=== PATIENT | male | born 1960 | race Caucasian/White ===

== ENCOUNTER → 2017-09-10 08:39 | Outpatient (CLI) | payer OTHER, SELFPAY ==
[2017-09-10 09:32] LABS: Add Manual Diff / Slide Review NO; Basophils Percent Auto 0.5 % (0-2); Hematocrit 44.4 % (41-53); Hemoglobin 15.4 g/dL (13.5-17.5); Lymphocytes Percent Auto 18.2 % (25-40); Mean Corpuscular HGB Conc 34.8 % (30-36); Mean Corpuscular Hemoglobin 33.1 PG (26-34); Mean Corpuscular Volume 95.1 fL (80-100); Monocytes Percent Auto 7.5 % (3-14); Neutrophils Absolute Auto 4700 /uL (3000-5900); Neutrophils Percent Auto 71.8 % (50-75); Platelet Count 90 X10^3/uL (150-400); Red Blood Cell Count 4.66 X10^6/uL (4.5-5.9); Red Cell Distribution Width 13.6 % (11.6-14.8); White Blood Cell Count 6.6 X10^3/uL (4.5-11.0)
[2017-09-10 09:55] LABS: Alanine Aminotransferase 42 IU/L (21-72); Albumin 4.3 g/dL (3.5-5.0); Albumin Globulin Ratio 1.3 (1.0-2.8); Alkaline Phosphatase 98 U/L (38-126); Aspartate Aminotransferase 28 IU/L (17-59); BUN Creatinine Ratio 24.2 (6-22); Bilirubin Total 1.1 mg/dL (0.2-1.3); Blood Urea Nitrogen 29 mg/dL (9-20); Calcium 9.6 mg/dL (8.4-10.2); Carbon Dioxide 23 mmol/L (22-32); Chloride 104 mmol/L (98-107); Estimated Glomerular Filt Rate > 60.0 mL/min (>60); Globulin 3.3 g/dL (1.7-4.1); Glucose 183 mg/dL (70-100); HEMOLYSIS 20 (0-50); Potassium 5.2 mmol/L (3.4-5.1); Sodium 140 mmol/L (137-145); Total Protein 7.6 g/dL (6.3-8.2)
[2017-09-10 09:58] LABS: Creatinine Urine Random 173.3 mg/dL
[2017-09-10 10:03] LABS: Microalbumi Creatinin Ratio Ur 32.3 ug/mg CR (<30); Microalbumin Urine Random 5.6 mg/dL (0-1.6)
[2017-09-10 10:10] LABS: Hemoglobin A1C% w Est Avg Glu 7.3 % (4.0-6.0)
== END ==
PROVIDERS: PCP Internal Medicine; Visit Provider Internal Medicine
DX: E11.9 Type 2 diabetes mellitus without complications (principal); D69.6 Thrombocytopenia, unspecified
CPT/HCPCS: 36415; 80053; 82043; 82570; 83036; 85025

== ENCOUNTER → 2017-12-16 08:21 | Outpatient (CLI) | payer OTHER, SELFPAY ==
[2017-12-16 09:40] LABS: Hemoglobin A1C% w Est Avg Glu 6.5 % (4.0-6.0)
[2017-12-16 10:05] LABS: Alanine Aminotransferase 34 IU/L (21-72); Albumin Globulin Ratio 1.3 (1.0-2.8); Alkaline Phosphatase 97 U/L (38-126); Aspartate Aminotransferase 27 IU/L (17-59); BUN Creatinine Ratio 21.5 (6-22); Bilirubin Total 0.7 mg/dL (0.2-1.3); Blood Urea Nitrogen 28 mg/dL (9-20); Calcium 9.6 mg/dL (8.4-10.2); Carbon Dioxide 26 mmol/L (22-32); Chloride 105 mmol/L (98-107); Estimated Glomerular Filt Rate 56.7 mL/min (>60); Globulin 3.1 g/dL (1.7-4.1); Glucose 175 mg/dL (70-100); HEMOLYSIS < 15 (0-50); Potassium 4.7 mmol/L (3.4-5.1); Sodium 141 mmol/L (137-145); Total Protein 7.1 g/dL (6.3-8.2)
== END ==
PROVIDERS: PCP Internal Medicine; Visit Provider Internal Medicine
DX: E11.9 Type 2 diabetes mellitus without complications (principal)
CPT/HCPCS: 36415; 80053; 83036

== ENCOUNTER 2018-07-23 08:49 | Emergency (ER) | payer OTHER, SELFPAY ==
[2018-07-23] VITALS (18 sets, daily range): BP systolic 95–164; BP diastolic 64–108; PULSE 64–115; RESP 14–26; TEMP 36.6; O2SAT 92–98; BMI 42.5
--- NOTE | 2018-07-23 09:08 | ED.ABDPAIN ---
HPI - Abdominal Pain General Chief Complaint: Abdominal Pain Stated Complaint: Throwing up, hurt esophagus Time Seen by Provider: 07/23/18 08:51 Source: patient and family Mode of arrival: ambulatory Limitations: no limitations History of Present Illness HPI narrative: 57-year-old M former smoker the is morbidly obese with history of COPD, type 2 diabetes, CHF presents with epigastrc pain, N/V off and on for the past week or two. He also complains of severe fatigue and some SOB, particularly when laying flat. He denies any fever or chills. He denies recent travel. He's never had a heart condition, nor heart cath. On arrival he is notably pale, diaphoretic, and SOB. He denies CP currently, but does have reproduceable epigastric pain. Related Data Home Medications Medication Instructions Recorded Confirmed albuterol sulfate 3 ml INHALATION TID 07/23/18 07/23/18 bupropion HCl 300 mg PO DAILY 07/23/18 07/23/18 carvedilol 25 mg PO BID 07/23/18 07/23/18 cyclobenzaprine 10 mg PO DAILY PRN 07/23/18 07/23/18 epinephrine [EpiPen 2-Lake] 0.3 ml IM PRN PRN 07/23/18 07/23/18 fluticasone propionate [Flovent 1 puff INHALATION BID 07/23/18 07/23/18 Diskus] glucosamine HCl 1 tab PO DAILY 07/23/18 07/23/18 hydrocodone-acetaminophen 1 tab PO Q6H PRN 07/23/18 07/23/18 ipratropium-albuterol [Combivent 1 inh INHALATION QID 07/23/18 07/23/18 Respimat] lisinopril 20 mg PO BID 07/23/18 07/23/18 metformin 1,000 mg PO BID 07/23/18 07/23/18 pantoprazole 40 mg PO DAILY 07/23/18 07/23/18 prednisone 20 mg PO DAILY 07/23/18 07/23/18 spironolactone 50 mg PO DAILY 07/23/18 07/23/18 terazosin 5 mg PO DAILY 07/23/18 07/23/18 Allergies Allergy/AdvReac Type Severity Reaction Status Date / Time codeine [CODEINE] Allergy Unknown Hallucinati Verified 07/23/18 13:45 ng Review of Systems Review of Systems ROS Unobtainable: All systems reviewed & are unremarkable except as noted in HPI and below Constitutional Denies chills, Reports fatigue, Denies fever(s), Denies lethargy and Reports weakness Eyes Denies change in vision, Denies eye discharge, Denies irritation and Denies loss of vision ENT Ears, Nose, Mouth, and Throat: Denies change in voice, Denies neck pain and Denies sore throat Cardiovascular Reports chest pain, Denies irregular heart rhythm, Denies lightheadedness, Denies palpitations, Reports dyspnea, Reports dyspnea on exertion and Reports orthopnea Respiratory Denies cough, Reports dyspnea, Reports dyspnea on exertion and Denies wheezing Gastrointestinal Gastrointestinal: Reports abdominal pain, Denies change in bowel habits, Denies diarrhea, Reports nausea and Reports vomiting Genitourinary Denies hematuria, Denies flank pain, Denies urinary incontinence and Denies urinary urgency Musculoskeletal Denies neck pain Integumentary/Breasts Denies pruritus, Denies erythema, Denies rash and Denies wounds Neurologic Denies confusion, Denies loss of vision and Reports weakness Psychiatric Denies anxiety, Denies confusion, Denies depression, Denies homicidal ideation and Denies suicidal ideation Endocrine Reports fatigue and Denies palpitations Hematologic/Lymphatic Denies easy bruising Allergic/Immunologic Denies wheezing PFSH Medical History Congestive heart failure (Acute) Enlarged prostate (Acute) Hypertension (Acute) Obesity (Acute) Social History Smoking Status: Former smoker Social History Smoking Status: Former smoker Exam Narrative Exam Narrative: GENERAL: 57M, morbidly obese, appears uncomfortable HEAD: Atraumatic. Normocephalic. No temporal or scalp tenderness. EYES: Pupils equal round and reactive. Extraocular motions intact. No scleral icterus. No injection or drainage. ENT: Nose without bleeding, purulent drainage or septal hematoma. Throat without erythema, tonsillar hypertrophy or exudate. Uvula midline. Airway patent. NECK: Trachea midline. No JVD or lymphadenopathy. Supple, nontender, no meningeal signs. CARDIOVASCULAR: Regular rate and rhythm without murmurs, gallops, or rubs. RESPIRATORY: Clear to auscultation. Breath sounds equal bilaterally. No wheezes, rales, or rhonchi. GASTROINTESTINAL: Abdomen soft, mild reproduceable epigastric pain nondistended. No hepato-splenomegaly, or palpable masses. No guarding. EXTREMITIES: No clubbing, cyanosis, or edema. No joint tenderness, effusion, or edema noted. BACK: Nontender without deformity or crepitance. No flank tenderness. NEURO: AOx3. SKIN: No rash or erythema. Initial Vital Signs Initial Vital Signs: Vital Signs Temperature 97.8 F 07/23/18 09:07 Pulse Rate 82 07/23/18 09:07 Respiratory Rate 20 07/23/18 09:07 Blood Pressure 164/108 H 07/23/18 09:07 Pulse Oximetry 93 07/23/18 09:07 Scores HEART Score Heart Score history: Highly Suspicious Heart Score EKG: Non-Specific repolarization disturbance Heart Score Age: 45-64 years old Heart Score risk factors: > 3 risk factors or hx of atherosclerotic disease Heart Score troponin: > 3 times normal limit Heart Score Total: 8 Course Orders Ordered: ED Orders 07/23/18 09:19 XR chest 1V Stat EKG-12 Lead Stat 07/23/18 09:26 B Type Natriuretic Peptide Stat Complete Blood Count AUTO DIFF Stat Comprehensive Metabolic Panel Stat Lipase Stat Partial Thromboplastin Time Stat Prothrombin Time INR Stat Troponin & CK Cardiac Panel Stat 07/23/18 09:44 US abdomen complete Stat 07/23/18 10:41 CT angio chest PE protocol Stat 07/23/18 11:26 CPAP RT PROTOCOL 07/23/18 12:15 Troponin I Stat 07/23/18 13:28 EKG-12 Lead Stat Discontinued Medications Acetaminophen (Tylenol) 975 mg PO NOW ONE Stop: 07/23/18 13:27 Last Admin: 07/23/18 13:31 Dose: 975 mg Aspirin (Aspirin) 325 mg PO NOW ONE Stop: 07/23/18 14:32 Last Admin: 07/23/18 14:06 Dose: 325 mg Al Hydrox/Mg Hydrox/Simethicone 20 ml/ Lidocaine HCl 15 ml 0 ml PO NOW ONE Stop: 07/23/18 09:44 Last Admin: 07/23/18 10:08 Dose: 30 ml Furosemide (Lasix) 40 mg IV NOW ONE Stop: 07/23/18 10:34 Last Admin: 07/23/18 11:03 Dose: 40 mg Heparin Sodium (Porcine) (Heparin) 12,300 unit 80 unit/kg (71484 unit) IV NOW ONE Stop: 07/23/18 10:26 Last Admin: 07/23/18 10:41 Dose: 12,300 unit Pantoprazole Sodium 80 mg/ (Sodium Chloride) 100 mls @ 10 mls/hr IV NOW ONE Stop: 07/23/18 19:42 Last Infusion: 07/23/18 10:33 Dose: 0 mls/hr Admin: 07/23/18 10:09 Dose: 10 mls/hr Heparin Sodium/Dextrose (Heparin Drip) 25,000 unit in 500 mls @ 37.013 mls/hr IV CONT SARAH; Protocol Last Titration: 07/23/18 14:26 Dose: 12 units/kg/hr, 37.013 mls/hr Admin: 07/23/18 11:15 Dose: 12 units/kg/hr, 37.013 mls/hr Nitroglycerin (Nitrostat) 0.4 mg SL NOW ONE Stop: 07/23/18 13:25 Last Admin: 07/23/18 13:25 Dose: 0.4 mg Nitroglycerin (Nitrostat) 0.4 mg SL [id number] PRN PRN Reason: Chest Pain Last Admin: 07/23/18 13:36 Dose: 0.4 mg Admin: 07/23/18 13:31 Dose: 0.4 mg Ondansetron HCl (Zofran) 4 mg IV NOW ONE Stop: 07/23/18 09:20 Last Admin: 07/23/18 09:33 Dose: 4 mg Reevaluation(s) Reevaluation #1: patient no longer having pain. SOB. asks for CPAP to use for CTA. Heparin bolus/drip ordered Reevaluation #2: patient resting comfortably. No pain Consultations Consultation #1: call to [facility]. No beds call to [facility]. No beds 1228 - call to [facility]. Dr. Pavon (hospitalist paged). Tentatively accepts, requests EKGs, labs, chart be faxed. 1320 - call Savanah back, to relay increase in troponin up to 13.9. He requests I call cardio 1324 - patient calls me to bedside, developing pain. 3/10. Retrosternal. Not made worse with palpation. NG ordered. Repeat EKG. 1325 - pain down to 1/10 with NG. Developing headache. Tylenol ordered. Cardio calls back, requests rapid transport to ED. ED provider at [facility] called (Dr. Bolanos) to accept 1345 - call to [facility], patient exceeds dimensions (weight and girth) cannot fly rotary. Call to [facility]. 2 hour ETA. Catalina LAZO called. Verbal instructions for heparin, NG, MS. 1355 - call back to [facility] just to confirm, no ability to accept heart cath patient 1405 - patient loaded up. Currently pain free. Heparin bolus given, heparin drip running, ASA 324mg PO given. No Metoporolol given signs of CHF. Vital Signs - 8 hr 07/23/18 09:07 07/23/18 09:30 07/23/18 10:00 Temperature 97.8 F Pulse Rate 82 64 72 Respiratory Rate 20 14 18 Blood Pressure 164/108 H Blood Pressure [Left Arm] 145/73 H 117/87 Pulse Oximetry 93 93 92 07/23/18 10:30 07/23/18 10:36 07/23/18 10:43 Temperature Pulse Rate 66 80 Respiratory Rate 22 16 Blood Pressure Blood Pressure [Left Arm] 95/64 109/88 109/88 Pulse Oximetry 07/23/18 11:15 07/23/18 11:30 07/23/18 11:45 Temperature Pulse Rate 89 90 98 H Respiratory Rate 22 20 21 Blood Pressure Blood Pressure [Left Arm] 141/92 H 149/91 H 154/99 H Pulse Oximetry 97 98 96 07/23/18 12:00 07/23/18 12:30 07/23/18 12:50 Temperature Pulse Rate 85 89 99 H Respiratory Rate 19 19 24 Blood Pressure Blood Pressure [Left Arm] 161/95 H 164/101 H 164/98 H Pulse Oximetry 98 97 97 07/23/18 13:03 07/23/18 13:25 07/23/18 13:30 Temperature Pulse Rate 92 H 110 H 106 H Respiratory Rate 20 22 Blood Pressure 155/95 H Blood Pressure [Left Arm] 160/95 H 131/88 Pulse Oximetry 96 93 07/23/18 13:31 07/23/18 13:36 07/23/18 14:00 Temperature Pulse Rate 101 H 115 H Respiratory Rate 26 H Blood Pressure 131/88 143/97 H Blood Pressure [Left Arm] 144/91 H Pulse Oximetry 95 MDM - Abdominal Pain Medical Records Attestation: I reviewed the patient's medical records. Lab Data Attestation: I reviewed the patient's lab results. Result diagrams: 07/23/18 09:26 07/23/18 09:26 Lab Results 07/23/18 07/23/18 07/23/18 Range/Units 09:26 09:26 09:26 WBC 6.9 (4.5-11.0) X10^3/uL RBC 4.73 (4.5-5.9) X10^6/uL Hgb 15.5 (13.5-17.5) g/dL Hct 43.9 (41-53) % MCV 92.7 (80-100) fL MCH 32.7 (26-34) PG MCHC 35.3 (30-36) % RDW 13.5 (11.6-14.8) % Plt Count 138 L (150-400) X10^3/uL Neut % (Auto) 77.9 H (50-75) % Lymph % (Auto) 15.9 L (25-40) % Mingo % (Auto) 5.6 (3-14) % Eos % (Auto) 0.1 L (2-4) % Baso % (Auto) 0.5 (0-2) % Neut # (Auto) 5400 (1798-6018) /uL Lymph # (Auto) 1100 (3628-4697) /uL Mingo # (Auto) 400 (0-900) /uL Eos # (Auto) 0 (0-450) /uL Baso # (Auto) 0 (0-100) /uL PT 12.3 (10.1-12.7) SECONDS INR 1.1 (0.9-1.3) APTT 29 (26.4-36.2) SECONDS Sodium 136 L (137-145) mmol/L Potassium 4.5 (3.4-5.1) mmol/L Chloride 101 (98-107) mmol/L Carbon Dioxide 23 (22-32) mmol/L BUN 21 H (9-20) mg/dL Creatinine 1.40 H (0.66-1.25) mg/dL Estimated GFR 52.1 L (>60) mL/min BUN/Creatinine Ratio 15.0 (6-22) Glucose 192 H (70-100) mg/dL Calcium 10.0 (8.4-10.2) mg/dL Total Bilirubin 0.7 (0.2-1.3) mg/dL AST 87 H (17-59) IU/L ALT 45 (21-72) IU/L Alkaline Phosphatase 87 (38-126) U/L Total Creatine Kinase 795 H (55-170) U/L CK-MB (CK-2) 55.30 H (<2.37) ng/mL CK-MB (CK-2) Rel Index 7.0 H* (1.5-5.0) % Troponin I 8.610 H* (0.01-0.034) ng/mL B-Natriuretic Peptide (<100) Total Protein 7.4 (6.3-8.2) g/dL Albumin 4.3 (3.5-5.0) g/dL Globulin 3.1 (1.7-4.1) g/dL Albumin/Globulin Ratio 1.4 (1.0-2.8) Lipase 96 (23-300) U/L 07/23/18 07/23/18 Range/Units 09:26 12:15 WBC (4.5-11.0) X10^3/uL RBC (4.5-5.9) X10^6/uL Hgb (13.5-17.5) g/dL Hct (41-53) % MCV (80-100) fL MCH (26-34) PG MCHC (30-36) % RDW (11.6-14.8) % Plt Count (150-400) X10^3/uL Neut % (Auto) (50-75) % Lymph % (Auto) (25-40) % Mingo % (Auto) (3-14) % Eos % (Auto) (2-4) % Baso % (Auto) (0-2) % Neut # (Auto) (0462-0189) /uL Lymph # (Auto) (4584-7770) /uL Mingo # (Auto) (0-900) /uL Eos # (Auto) (0-450) /uL Baso # (Auto) (0-100) /uL PT (10.1-12.7) SECONDS INR (0.9-1.3) APTT (26.4-36.2) SECONDS Sodium (137-145) mmol/L Potassium (3.4-5.1) mmol/L Chloride (98-107) mmol/L Carbon Dioxide (22-32) mmol/L BUN (9-20) mg/dL Creatinine (0.66-1.25) mg/dL Estimated GFR (>60) mL/min BUN/Creatinine Ratio (6-22) Glucose (70-100) mg/dL Calcium (8.4-10.2) mg/dL Total Bilirubin (0.2-1.3) mg/dL AST (17-59) IU/L ALT (21-72) IU/L Alkaline Phosphatase (38-126) U/L Total Creatine Kinase (55-170) U/L CK-MB (CK-2) (<2.37) ng/mL CK-MB (CK-2) Rel Index (1.5-5.0) % Troponin I 13.900 H* (0.01-0.034) ng/mL B-Natriuretic Peptide < 100 (<100) Total Protein (6.3-8.2) g/dL Albumin (3.5-5.0) g/dL Globulin (1.7-4.1) g/dL Albumin/Globulin Ratio (1.0-2.8) Lipase (23-300) U/L Imaging Data CT scan - chest: Radiologist's impression: [place] [address] CT Scan Report Signed Patient: Sameer Joe [facility]#: [id number] : 1960Acct:[id number] Age/Sex: 57 / MDate of Service: 07/23/18 Loc: ED Accession Number: [id number] Procedure: CT angio chest PE protocol Ordering Provider: Harpal Nam D.O. PROCEDURE: CT ANGIO CHEST PE PROTOCOL INDICATIONS: chest pain, shortness of breath, positive Trop/BNP TECHNIQUE: After the administration of intravenous contrast, 2 mm thick sections acquired from the pulmonary apices to the posterior costophrenic angles. 3-dimensional maximum intensity projection (MIP) coronal and sagittal reformats were then acquired through the thorax. For radiation dose reduction, the following was used: automated exposure control, adjustment of mA and/or kV according to patient size. COMPARISON: [facility], CR, XR CHEST 1V, 07/23/2018, 9:25. FINDINGS: Image quality: Excellent. Pulmonary arteries: Pulmonary arteries are normal in size, and demonstrate no intraluminal filling defects to suggest central pulmonary embolism. Lungs and pleura: Consolidation is present at the posterior right lung base. Mild atelectasis is present at the left lung base. A questionable 1.0 cm pulmonary mass versus atelectasis is present within the superior segment of the left lower lobe (series 5, image 20). No pleural effusions or pneumothorax. Central and peripheral airways are patent. Mediastinum: Heart size is enlarged, without pericardial effusion. No mediastinal or hilar adenopathy. Thoracic aorta is normal in caliber and enhancement. Scattered atheromatous calcifications are present within the aortic arch. Esophagus is normal in caliber, without hiatal hernia. Bones and chest wall: No suspicious bony lesions. Moderate degenerative changes are present throughout the thoracic spine. Ribs and thoracic spine appear intact throughout. Thyroid gland is unremarkable. No axillary or supraclavicular adenopathy. Abdomen: Visualized upper abdominal solid organs appear normal in the early arterial phase of enhancement. IMPRESSION: 1. No acute pulmonary embolus. 2. Right basilar consolidation suspicious for pneumonia. However, underlying pulmonary neoplasm cannot be excluded and short interval followup is recommended. 3. Mild cardiomegaly. Dictated by: Lorraine Thomas M.D. on 07/23/2018 at 11:10 Approved by: Lorraine Thomas M.D. on 07/23/2018 at 11:27 US - abdomen: Radiologist's impression: [address] [address] Ultrasound Report Signed Patient: Sameer Joe [facility]#: [id number] : 1960Acct:[id number] Age/Sex: 57 / MDate of Service: 07/23/18 Loc: ED Accession Number: [id number] Procedure: US abdomen complete Ordering Provider: Harpal Nam D.O. PROCEDURE: US ABDOMEN COMPLETE INDICATIONS: N/V, severe epigastric pain TECHNIQUE: Real-time scanning was performed of the abdominal and retroperitoneal organs, with image documentation. COMPARISON: [facility], , ABDOMEN COMPLETE, 07/15/2016, 8:26. [facility], [place], ABDOMEN COMPLETE, 12/12/2010, 9:56. FINDINGS: Liver: Liver is enlarged at 20.6 cm craniocaudad in size and homogeneous in echotexture, diffusely hyperechoic. Gallbladder: The gallbladder appears normal Biliary ducts: Intrahepatic bile ducts are non-dilated. Extrahepatic bile duct caliber measures 7-8 mm, slightly prominent. Normal is 6-7 mm or less in diameter, or 10 mm or less post-cholecystectomy. Pancreas: Visualized portions of the pancreas are sonographically normal. Spleen: Spleen is globally enlarged in size at 16.6 cm craniocaudad, and homogeneous in echotexture. Kidneys: Kidneys are normal in size and echotexture. Right kidney measures 12.2 cm long; left kidney measures 12.9 cm long. No hydronephrosis or nephrolithiasis. No solid masses. Aorta: Visualized aorta is normal in caliber at less than 3 cm. in the distal third of the aortic was obscured by bowel gas. Iliacs: Obscured by bowel gas. IVC: Intrahepatic inferior vena cava is patent. Miscellaneous: No free abdominal fluid. IMPRESSION: Hepatosplenomegaly with a mildly hyperechoic liver echotexture consistent with fatty infiltration. Varices or ascites is not seen. Please correlate for presence of hepatitis, in this clinical circumstance. Mild prominence of the extrahepatic common duct at 7-8 mm for a patient with gallbladder intact. No gallstones found. If unusual symptoms persist followup by MR cholangiogram for common duct calculus may become necessary. Significant portions of the lower abdomen/pelvis were poorly seen due to bowel gas obscuring visualization of the distal third of the aorta and the iliac arteries bilaterally. Dictated by: Ricardo Fuentes M.D. on 07/23/2018 at 10:25 Approved by: Ricardo Fuentes M.D. on 07/23/2018 at 10:28 Chest x-ray: Radiologist's impression: Procedure: XR chest 1V Ordering Provider: Harpal Nam D.O. PROCEDURE: XR CHEST 1V INDICATIONS: chest pain TECHNIQUE: One view of the chest was acquired. COMPARISON: [facility], , CHEST 2 VIEW, 03/12/2015, 10:18. FINDINGS: Surgical changes and devices: None. Lungs and pleura: Lungs are mildly edematous. No pleural effusions or pneumothorax. Mediastinum: Mediastinal contours appear normal. Heart size is mildly enlarged. Bones and chest wall: No suspicious bony lesions. Overlying soft tissues appear unremarkable. IMPRESSION: Mild pulmonary edema with mild cardiomegaly, probable acute exacerbation of chronic CHF. Dictated by: Ricardo Fuentes M.D. on 07/23/2018 at 9:39 Approved by: Ricardo Fuentes M.D. on 07/23/2018 at 9:39 MDM Narrative Medical decision making narrative: 57M with DM, HTN, obesity presents with N/V, epigastric pain, SOB. EKG shows RBBB which appears new since 2016. Epigastric pain worse on palpation, unremarkable belly labs, US shows no acute finding. Troponin critically elevated. CTA demonstrates no PE. Heparin ordered. Transfer needed to further evaluate symptoms and troponin, which strongly suggest cardiac etioliogy. Critical Care Time Critical Care Time: Yes Total Critical Care Time: 30 Attestation: The high probability of a clinically significant, sudden or life threatening deterioration of the [cardiovascular] system(s) required my full and direct attention, intervention and personal management. The aggregate critical care time was [30] minutes. This time is in addition to time spent performing reported procedures but includes the following: [x] Data Review and interpretation [x] Patient assessment and monitoring of vital signs [x] Documentation [x] Medication orders and management Discharge Plan Departure Patient Disposition: [facility] Clinical Impression: ACS (acute coronary syndrome) Discharge Date/Time: 07/23/18 14:06 Interventions: ED Discharge Assessment Last Done: 07/23/18 14:06 Prescriptions: No Action terazosin 5 mg capsule 5 mg PO DAILY RF: 0 carvedilol 25 mg tablet 25 mg PO BID RF: 0 spironolactone 25 mg tablet 50 mg PO DAILY RF: 0 pantoprazole 40 mg tablet,delayed release (DR/EC) 40 mg PO DAILY RF: 0 Combivent Respimat 20-100 mcg/actuation mist 1 inh Inhalation QID RF: 0 albuterol sulfate 2.5 mg /3 mL (0.083 %) solution for nebulization 3 ml Inhalation TID RF: 0 lisinopril 20 mg tablet 20 mg PO BID RF: 0 hydrocodone-acetaminophen 10-325 mg tablet 1 tab PO Q6H PRN (Reason: PAIN) RF: 0 metformin 1,000 mg tablet 1,000 mg PO BID RF: 0 Flovent Diskus 100 mcg/actuation blister with device 1 puff Inhalation BID RF: 0 bupropion HCl 300 mg tablet extended release 24 hr 300 mg PO DAILY RF: 0 glucosamine HCl 1,500 mg Tablet 1 tab PO DAILY RF: 0 cyclobenzaprine 10 mg Tablet 10 mg PO DAILY PRN (Reason: Muscle Spasm) RF: 0 prednisone 10 mg tablet 20 mg PO DAILY RF: 0 epinephrine [EpiPen 2-Lake] 0.3 mg/0.3 mL Auto-Injector 0.3 ml IM PRN PRN (Reason: Allergic Reaction) RF: 0 Referrals: Dayne Osorio MD [Primary Care Provider] -
--- NOTE | 2018-07-23 09:19 | DI.RAD.S_ITS ---
PROCEDURE: XR CHEST 1V INDICATIONS: chest pain TECHNIQUE: One view of the chest was acquired. COMPARISON: [facility], , CHEST 2 VIEW, 03/12/2015, 10:18. FINDINGS: Surgical changes and devices: None. Lungs and pleura: Lungs are mildly edematous. No pleural effusions or pneumothorax. Mediastinum: Mediastinal contours appear normal. Heart size is mildly enlarged. Bones and chest wall: No suspicious bony lesions. Overlying soft tissues appear unremarkable. IMPRESSION: Mild pulmonary edema with mild cardiomegaly, probable acute exacerbation of chronic CHF. Dictated by: Ricardo Fuentes M.D. on 07/23/2018 at 9:39 Approved by: Ricardo Fuentes M.D. on 07/23/2018 at 9:39
[2018-07-23] MEDS: ONDANSETRON 4 MG/2 ML INJ IV (09:33)
[2018-07-23 09:34] LABS: Add Manual Diff / Slide Review NO; Basophils Absolute Auto 0 /uL (0-100); Basophils Percent Auto 0.5 % (0-2); Eosinophils Absolute Auto 0 /uL (0-450); Eosinophils Percent Auto 0.1 % (2-4); Hematocrit 43.9 % (41-53); Hemoglobin 15.5 g/dL (13.5-17.5); Lymphocytes Absolute Auto 1100 /uL (1100-4500); Lymphocytes Percent Auto 15.9 % (25-40); Mean Corpuscular HGB Conc 35.3 % (30-36); Mean Corpuscular Hemoglobin 32.7 PG (26-34); Mean Corpuscular Volume 92.7 fL (80-100); Monocytes Absolute Auto 400 /uL (0-900); Monocytes Percent Auto 5.6 % (3-14); Neutrophils Absolute Auto 5400 /uL (1500-7000); Neutrophils Percent Auto 77.9 % (50-75); Platelet Count 138 X10^3/uL (150-400); Red Blood Cell Count 4.73 X10^6/uL (4.5-5.9); Red Cell Distribution Width 13.5 % (11.6-14.8); White Blood Cell Count 6.9 X10^3/uL (4.5-11.0)
[2018-07-23 09:38] LABS: INR 1.1 (0.9-1.3); Prothrombin Time 12.3 SECONDS (10.1-12.7)
[2018-07-23 09:41] LABS: PTT Partial Thromboplastin Tim 29 SECONDS (26.4-36.2)
[2018-07-23 09:44] LABS: Alanine Aminotransferase 45 IU/L (21-72); Albumin 4.3 g/dL (3.5-5.0); Albumin Globulin Ratio 1.4 (1.0-2.8); Alkaline Phosphatase 87 U/L (38-126); Aspartate Aminotransferase 87 IU/L (17-59); Bilirubin Total 0.7 mg/dL (0.2-1.3); Blood Urea Nitrogen 21 mg/dL (9-20); Carbon Dioxide 23 mmol/L (22-32); Chloride 101 mmol/L (98-107); Creatine Kinase 795 U/L (55-170); Estimated Glomerular Filt Rate 52.1 mL/min (>60); Globulin 3.1 g/dL (1.7-4.1); Glucose 192 mg/dL (70-100); HEMOLYSIS < 15 (0-50); Lipase 96 U/L (23-300); Potassium 4.5 mmol/L (3.4-5.1); Sodium 136 mmol/L (137-145); Total Protein 7.4 g/dL (6.3-8.2)
--- NOTE | 2018-07-23 09:44 | DI.US.S_ITS ---
PROCEDURE: US ABDOMEN COMPLETE INDICATIONS: N/V, severe epigastric pain TECHNIQUE: Real-time scanning was performed of the abdominal and retroperitoneal organs, with image documentation. COMPARISON: [facility], [place], ABDOMEN COMPLETE, 07/15/2016, 8:26. [facility], [place], ABDOMEN COMPLETE, 12/12/2010, 9:56. FINDINGS: Liver: Liver is enlarged at 20.6 cm craniocaudad in size and homogeneous in echotexture, diffusely hyperechoic. Gallbladder: The gallbladder appears normal Biliary ducts: Intrahepatic bile ducts are non-dilated. Extrahepatic bile duct caliber measures 7-8 mm, slightly prominent. Normal is 6-7 mm or less in diameter, or 10 mm or less post-cholecystectomy. Pancreas: Visualized portions of the pancreas are sonographically normal. Spleen: Spleen is globally enlarged in size at 16.6 cm craniocaudad, and homogeneous in echotexture. Kidneys: Kidneys are normal in size and echotexture. Right kidney measures 12.2 cm long; left kidney measures 12.9 cm long. No hydronephrosis or nephrolithiasis. No solid masses. Aorta: Visualized aorta is normal in caliber at less than 3 cm. in the distal third of the aortic was obscured by bowel gas. Iliacs: Obscured by bowel gas. IVC: Intrahepatic inferior vena cava is patent. Miscellaneous: No free abdominal fluid. IMPRESSION: Hepatosplenomegaly with a mildly hyperechoic liver echotexture consistent with fatty infiltration. Varices or ascites is not seen. Please correlate for presence of hepatitis, in this clinical circumstance. Mild prominence of the extrahepatic common duct at 7-8 mm for a patient with gallbladder intact. No gallstones found. If unusual symptoms persist followup by MR cholangiogram for common duct calculus may become necessary. Significant portions of the lower abdomen/pelvis were poorly seen due to bowel gas obscuring visualization of the distal third of the aorta and the iliac arteries bilaterally. Dictated by: Ricardo Fuentes M.D. on 07/23/2018 at 10:25 Approved by: Ricardo Fuentes M.D. on 07/23/2018 at 10:28
[2018-07-23] MEDS: MAG HYDROX/ALUMINUM/SIMETH SUS 20 ML, LIDOCAINE VISCOUS 2% 15 ML PO (10:08)
[2018-07-23] MEDS: PANTOPRAZOLE 80 MG in SODIUM CHLORIDE 0.9% 100 ML 10 ML IV (10:09)
--- NOTE | 2018-07-23 10:09 | ED_ITS ---
HPI - Abdominal Pain General Chief Complaint: Abdominal Pain Stated Complaint: Throwing up, hurt esophagus Time Seen by Provider: 07/23/18 08:51 Source: patient and family Mode of arrival: ambulatory Limitations: no limitations History of Present Illness HPI narrative: 57-year-old M former smoker the is morbidly obese with history of COPD, type 2 diabetes, CHF presents with epigastrc pain, N/V off and on for the past week or two. He also complains of severe fatigue and some SOB, particularly when laying flat. He denies any fever or chills. He denies recent travel. He's never had a heart condition, nor heart cath. On arrival he is notably pale, diaphoretic, and SOB. He denies CP currently, but does have reproduceable epigastric pain. Related Data Home Medications Medication Instructions Recorded Confirmed albuterol sulfate 3 ml INHALATION TID 07/23/18 07/23/18 bupropion HCl 300 mg PO DAILY 07/23/18 07/23/18 carvedilol 25 mg PO BID 07/23/18 07/23/18 cyclobenzaprine 10 mg PO DAILY PRN 07/23/18 07/23/18 epinephrine [EpiPen 2-Lake] 0.3 ml IM PRN PRN 07/23/18 07/23/18 fluticasone propionate [Flovent 1 puff INHALATION BID 07/23/18 07/23/18 Diskus] glucosamine HCl 1 tab PO DAILY 07/23/18 07/23/18 hydrocodone-acetaminophen 1 tab PO Q6H PRN 07/23/18 07/23/18 ipratropium-albuterol [Combivent 1 inh INHALATION QID 07/23/18 07/23/18 Respimat] lisinopril 20 mg PO BID 07/23/18 07/23/18 metformin 1,000 mg PO BID 07/23/18 07/23/18 pantoprazole 40 mg PO DAILY 07/23/18 07/23/18 prednisone 20 mg PO DAILY 07/23/18 07/23/18 spironolactone 50 mg PO DAILY 07/23/18 07/23/18 terazosin 5 mg PO DAILY 07/23/18 07/23/18 Allergies Allergy/AdvReac Type Severity Reaction Status Date / Time codeine [CODEINE] Allergy Unknown Hallucinati Verified 07/23/18 13:45 ng Review of Systems Review of Systems ROS Unobtainable: All systems reviewed & are unremarkable except as noted in HPI and below Constitutional Denies chills, Reports fatigue, Denies fever(s), Denies lethargy and Reports weakness Eyes Denies change in vision, Denies eye discharge, Denies irritation and Denies loss of vision ENT Ears, Nose, Mouth, and Throat: Denies change in voice, Denies neck pain and Denies sore throat Cardiovascular Reports chest pain, Denies irregular heart rhythm, Denies lightheadedness, Denies palpitations, Reports dyspnea, Reports dyspnea on exertion and Reports orthopnea Respiratory Denies cough, Reports dyspnea, Reports dyspnea on exertion and Denies wheezing Gastrointestinal Gastrointestinal: Reports abdominal pain, Denies change in bowel habits, Denies diarrhea, Reports nausea and Reports vomiting Genitourinary Denies hematuria, Denies flank pain, Denies urinary incontinence and Denies urinary urgency Musculoskeletal Denies neck pain Integumentary/Breasts Denies pruritus, Denies erythema, Denies rash and Denies wounds Neurologic Denies confusion, Denies loss of vision and Reports weakness Psychiatric Denies anxiety, Denies confusion, Denies depression, Denies homicidal ideation and Denies suicidal ideation Endocrine Reports fatigue and Denies palpitations Hematologic/Lymphatic Denies easy bruising Allergic/Immunologic Denies wheezing PFSH Medical History Congestive heart failure (Acute) Enlarged prostate (Acute) Hypertension (Acute) Obesity (Acute) Social History Smoking Status: Former smoker Social History Smoking Status: Former smoker Exam Narrative Exam Narrative: GENERAL: 57M, morbidly obese, appears uncomfortable HEAD: Atraumatic. Normocephalic. No temporal or scalp tenderness. EYES: Pupils equal round and reactive. Extraocular motions intact. No scleral icterus. No injection or drainage. ENT: Nose without bleeding, purulent drainage or septal hematoma. Throat without erythema, tonsillar hypertrophy or exudate. Uvula midline. Airway patent. NECK: Trachea midline. No JVD or lymphadenopathy. Supple, nontender, no meningeal signs. CARDIOVASCULAR: Regular rate and rhythm without murmurs, gallops, or rubs. RESPIRATORY: Clear to auscultation. Breath sounds equal bilaterally. No wheezes, rales, or rhonchi. GASTROINTESTINAL: Abdomen soft, mild reproduceable epigastric pain nondistended. No hepato-splenomegaly, or palpable masses. No guarding. EXTREMITIES: No clubbing, cyanosis, or edema. No joint tenderness, effusion, or edema noted. BACK: Nontender without deformity or crepitance. No flank tenderness. NEURO: AOx3. SKIN: No rash or erythema. Initial Vital Signs Initial Vital Signs: Vital Signs Temperature 97.8 F 07/23/18 09:07 Pulse Rate 82 07/23/18 09:07 Respiratory Rate 20 07/23/18 09:07 Blood Pressure 164/108 H 07/23/18 09:07 Pulse Oximetry 93 07/23/18 09:07 Scores HEART Score Heart Score history: Highly Suspicious Heart Score EKG: Non-Specific repolarization disturbance Heart Score Age: 45-64 years old Heart Score risk factors: > 3 risk factors or hx of atherosclerotic disease Heart Score troponin: > 3 times normal limit Heart Score Total: 8 Course Orders Ordered: ED Orders 07/23/18 09:19 XR chest 1V Stat EKG-12 Lead Stat 07/23/18 09:26 B Type Natriuretic Peptide Stat Complete Blood Count AUTO DIFF Stat Comprehensive Metabolic Panel Stat Lipase Stat Partial Thromboplastin Time Stat Prothrombin Time INR Stat Troponin & CK Cardiac Panel Stat 07/23/18 09:44 US abdomen complete Stat 07/23/18 10:41 CT angio chest PE protocol Stat 07/23/18 11:26 CPAP RT PROTOCOL 07/23/18 12:15 Troponin I Stat 07/23/18 13:28 EKG-12 Lead Stat Discontinued Medications Acetaminophen (Tylenol) 975 mg PO NOW ONE Stop: 07/23/18 13:27 Last Admin: 07/23/18 13:31 Dose: 975 mg Aspirin (Aspirin) 325 mg PO NOW ONE Stop: 07/23/18 14:32 Last Admin: 07/23/18 14:06 Dose: 325 mg Al Hydrox/Mg Hydrox/Simethicone 20 ml/ Lidocaine HCl 15 ml 0 ml PO NOW ONE Stop: 07/23/18 09:44 Last Admin: 07/23/18 10:08 Dose: 30 ml Furosemide (Lasix) 40 mg IV NOW ONE Stop: 07/23/18 10:34 Last Admin: 07/23/18 11:03 Dose: 40 mg Heparin Sodium (Porcine) (Heparin) 12,300 unit 80 unit/kg (25934 unit) IV NOW ONE Stop: 07/23/18 10:26 Last Admin: 07/23/18 10:41 Dose: 12,300 unit Pantoprazole Sodium 80 mg/ (Sodium Chloride) 100 mls @ 10 mls/hr IV NOW ONE Stop: 07/23/18 19:42 Last Infusion: 07/23/18 10:33 Dose: 0 mls/hr Admin: 07/23/18 10:09 Dose: 10 mls/hr Heparin Sodium/Dextrose (Heparin Drip) 25,000 unit in 500 mls @ 37.013 mls/hr IV CONT SARAH; Protocol Last Titration: 07/23/18 14:26 Dose: 12 units/kg/hr, 37.013 mls/hr Admin: 07/23/18 11:15 Dose: 12 units/kg/hr, 37.013 mls/hr Nitroglycerin (Nitrostat) 0.4 mg SL NOW ONE Stop: 07/23/18 13:25 Last Admin: 07/23/18 13:25 Dose: 0.4 mg Nitroglycerin (Nitrostat) 0.4 mg SL [id number] PRN PRN Reason: Chest Pain Last Admin: 07/23/18 13:36 Dose: 0.4 mg Admin: 07/23/18 13:31 Dose: 0.4 mg Ondansetron HCl (Zofran) 4 mg IV NOW ONE Stop: 07/23/18 09:20 Last Admin: 07/23/18 09:33 Dose: 4 mg Reevaluation(s) Reevaluation #1: patient no longer having pain. SOB. asks for CPAP to use for CTA. Heparin bolus/drip ordered Reevaluation #2: patient resting comfortably. No pain Consultations Consultation #1: call to [facility]. No beds call to [facility]. No beds 1228 - call to [facility]. Dr. Pavon (hospitalist paged). Tentatively accepts, requests EKGs, labs, chart be faxed. 1320 - call Savanah back, to relay increase in troponin up to 13.9. He requests I call cardio 1324 - patient calls me to bedside, developing pain. 3/10. Retrosternal. Not made worse with palpation. NG ordered. Repeat EKG. 1325 - pain down to 1/10 with NG. Developing headache. Tylenol ordered. Cardio calls back, requests rapid transport to ED. ED provider at [place] called (Dr. Bolanos) to accept 1345 - call to [facility], patient exceeds dimensions (weight and girth) cannot fly rotary. Call to [facility]. 2 hour ETA. Catalina LAZO called. Verbal instructions for heparin, NG, MS. 1355 - call back to [facility] just to confirm, no ability to accept heart cath patient 1405 - patient loaded up. Currently pain free. Heparin bolus given, heparin drip running, ASA 324mg PO given. No Metoporolol given signs of CHF. Vital Signs - 8 hr 07/23/18 09:07 07/23/18 09:30 07/23/18 10:00 Temperature 97.8 F Pulse Rate 82 64 72 Respiratory Rate 20 14 18 Blood Pressure 164/108 H Blood Pressure [Left Arm] 145/73 H 117/87 Pulse Oximetry 93 93 92 07/23/18 10:30 07/23/18 10:36 07/23/18 10:43 Temperature Pulse Rate 66 80 Respiratory Rate 22 16 Blood Pressure Blood Pressure [Left Arm] 95/64 109/88 109/88 Pulse Oximetry 07/23/18 11:15 07/23/18 11:30 07/23/18 11:45 Temperature Pulse Rate 89 90 98 H Respiratory Rate 22 20 21 Blood Pressure Blood Pressure [Left Arm] 141/92 H 149/91 H 154/99 H Pulse Oximetry 97 98 96 07/23/18 12:00 07/23/18 12:30 07/23/18 12:50 Temperature Pulse Rate 85 89 99 H Respiratory Rate 19 19 24 Blood Pressure Blood Pressure [Left Arm] 161/95 H 164/101 H 164/98 H Pulse Oximetry 98 97 97 07/23/18 13:03 07/23/18 13:25 07/23/18 13:30 Temperature Pulse Rate 92 H 110 H 106 H Respiratory Rate 20 22 Blood Pressure 155/95 H Blood Pressure [Left Arm] 160/95 H 131/88 Pulse Oximetry 96 93 07/23/18 13:31 07/23/18 13:36 07/23/18 14:00 Temperature Pulse Rate 101 H 115 H Respiratory Rate 26 H Blood Pressure 131/88 143/97 H Blood Pressure [Left Arm] 144/91 H Pulse Oximetry 95 MDM - Abdominal Pain Medical Records Attestation: I reviewed the patient's medical records. Lab Data Attestation: I reviewed the patient's lab results. Result diagrams: 07/23/18 09:26 07/23/18 09:26 Lab Results 07/23/18 07/23/18 07/23/18 Range/Units 09:26 09:26 09:26 WBC 6.9 (4.5-11.0) X10^3/uL RBC 4.73 (4.5-5.9) X10^6/uL Hgb 15.5 (13.5-17.5) g/dL Hct 43.9 (41-53) % MCV 92.7 (80-100) fL MCH 32.7 (26-34) PG MCHC 35.3 (30-36) % RDW 13.5 (11.6-14.8) % Plt Count 138 L (150-400) X10^3/uL Neut % (Auto) 77.9 H (50-75) % Lymph % (Auto) 15.9 L (25-40) % [place] % (Auto) 5.6 (3-14) % Eos % (Auto) 0.1 L (2-4) % Baso % (Auto) 0.5 (0-2) % Neut # (Auto) 5400 (1599-2270) /uL Lymph # (Auto) 1100 (9076-6888) /uL [place] # (Auto) 400 (0-900) /uL Eos # (Auto) 0 (0-450) /uL Baso # (Auto) 0 (0-100) /uL PT 12.3 (10.1-12.7) SECONDS INR 1.1 (0.9-1.3) APTT 29 (26.4-36.2) SECONDS Sodium 136 L (137-145) mmol/L Potassium 4.5 (3.4-5.1) mmol/L Chloride 101 (98-107) mmol/L Carbon Dioxide 23 (22-32) mmol/L BUN 21 H (9-20) mg/dL Creatinine 1.40 H (0.66-1.25) mg/dL Estimated GFR 52.1 L (>60) mL/min BUN/Creatinine Ratio 15.0 (6-22) Glucose 192 H (70-100) mg/dL Calcium 10.0 (8.4-10.2) mg/dL Total Bilirubin 0.7 (0.2-1.3) mg/dL AST 87 H (17-59) IU/L ALT 45 (21-72) IU/L Alkaline Phosphatase 87 (38-126) U/L Total Creatine Kinase 795 H (55-170) U/L CK-MB (CK-2) 55.30 H (<2.37) ng/mL CK-MB (CK-2) Rel Index 7.0 H* (1.5-5.0) % Troponin I 8.610 H* (0.01-0.034) ng/mL B-Natriuretic Peptide (<100) Total Protein 7.4 (6.3-8.2) g/dL Albumin 4.3 (3.5-5.0) g/dL Globulin 3.1 (1.7-4.1) g/dL Albumin/Globulin Ratio 1.4 (1.0-2.8) Lipase 96 (23-300) U/L 07/23/18 07/23/18 Range/Units 09:26 12:15 WBC (4.5-11.0) X10^3/uL RBC (4.5-5.9) X10^6/uL Hgb (13.5-17.5) g/dL Hct (41-53) % MCV (80-100) fL MCH (26-34) PG MCHC (30-36) % RDW (11.6-14.8) % Plt Count (150-400) X10^3/uL Neut % (Auto) (50-75) % Lymph % (Auto) (25-40) % [place] % (Auto) (3-14) % Eos % (Auto) (2-4) % Baso % (Auto) (0-2) % Neut # (Auto) (1255-1599) /uL Lymph # (Auto) (6078-6752) /uL [place] # (Auto) (0-900) /uL Eos # (Auto) (0-450) /uL Baso # (Auto) (0-100) /uL PT (10.1-12.7) SECONDS INR (0.9-1.3) APTT (26.4-36.2) SECONDS Sodium (137-145) mmol/L Potassium (3.4-5.1) mmol/L Chloride (98-107) mmol/L Carbon Dioxide (22-32) mmol/L BUN (9-20) mg/dL Creatinine (0.66-1.25) mg/dL Estimated GFR (>60) mL/min BUN/Creatinine Ratio (6-22) Glucose (70-100) mg/dL Calcium (8.4-10.2) mg/dL Total Bilirubin (0.2-1.3) mg/dL AST (17-59) IU/L ALT (21-72) IU/L Alkaline Phosphatase (38-126) U/L Total Creatine Kinase (55-170) U/L CK-MB (CK-2) (<2.37) ng/mL CK-MB (CK-2) Rel Index (1.5-5.0) % Troponin I 13.900 H* (0.01-0.034) ng/mL B-Natriuretic Peptide < 100 (<100) Total Protein (6.3-8.2) g/dL Albumin (3.5-5.0) g/dL Globulin (1.7-4.1) g/dL Albumin/Globulin Ratio (1.0-2.8) Lipase (23-300) U/L Imaging Data CT scan - chest: Radiologist's impression: [place] [address] CT Scan Report Signed Patient: Sameer Joe [facility]#: [id number] : 1960Acct:[id number] Age/Sex: 57 / MDate of Service: 07/23/18 Loc: ED Accession Number: [id number] Procedure: CT angio chest PE protocol Ordering Provider: Harpal Nam D.O. PROCEDURE: CT ANGIO CHEST PE PROTOCOL INDICATIONS: chest pain, shortness of breath, positive Trop/BNP TECHNIQUE: After the administration of intravenous contrast, 2 mm thick sections acquired from the pulmonary apices to the posterior costophrenic angles. 3-dimensional maximum intensity projection (MIP) coronal and sagittal reformats were then acquired through the thorax. For radiation dose reduction, the following was used: automated exposure control, adjustment of mA and/or kV according to patient size. COMPARISON: [facility], CR, XR CHEST 1V, 07/23/2018, 9:25. FINDINGS: Image quality: Excellent. Pulmonary arteries: Pulmonary arteries are normal in size, and demonstrate no intraluminal filling defects to suggest central pulmonary embolism. Lungs and pleura: Consolidation is present at the posterior right lung base. Mild atelectasis is present at the left lung base. A questionable 1.0 cm pulmonary mass versus atelectasis is present within the superior segment of the left lower lobe (series 5, image 20). No pleural effusions or pneumothorax. Central and peripheral airways are patent. Mediastinum: Heart size is enlarged, without pericardial effusion. No mediastinal or hilar adenopathy. Thoracic aorta is normal in caliber and enhancement. Scattered atheromatous calcifications are present within the aortic arch. Esophagus is normal in caliber, without hiatal hernia. Bones and chest wall: No suspicious bony lesions. Moderate degenerative changes are present throughout the thoracic spine. Ribs and thoracic spine appear intact throughout. Thyroid gland is unremarkable. No axillary or supraclavicular adenopathy. Abdomen: Visualized upper abdominal solid organs appear normal in the early arterial phase of enhancement. IMPRESSION: 1. No acute pulmonary embolus. 2. Right basilar consolidation suspicious for pneumonia. However, underlying pulmonary neoplasm cannot be excluded and short interval followup is recommended. 3. Mild cardiomegaly. Dictated by: Lorraine Thomas M.D. on 07/23/2018 at 11:10 Approved by: Lorraine Thomas M.D. on 07/23/2018 at 11:27 US - abdomen: Radiologist's impression: [address] [address] Ultrasound Report Signed Patient: Sameer Joe [facility]#: [id number] : 1960Acct:[id number] Age/Sex: 57 / MDate of Service: 07/23/18 Loc: ED Accession Number: [id number] Procedure: US abdomen complete Ordering Provider: Harpal Nam D.O. PROCEDURE: US ABDOMEN COMPLETE INDICATIONS: N/V, severe epigastric pain TECHNIQUE: Real-time scanning was performed of the abdominal and retroperitoneal organs, with image documentation. COMPARISON: [facility], , ABDOMEN COMPLETE, 07/15/2016, 8:26. [facility], US, ABDOMEN COMPLETE, 12/12/2010, 9:56. FINDINGS: Liver: Liver is enlarged at 20.6 cm craniocaudad in size and homogeneous in echotexture, diffusely hyperechoic. Gallbladder: The gallbladder appears normal Biliary ducts: Intrahepatic bile ducts are non-dilated. Extrahepatic bile duct caliber measures 7-8 mm, slightly prominent. Normal is 6-7 mm or less in diameter, or 10 mm or less post-cholecystectomy. Pancreas: Visualized portions of the pancreas are sonographically normal. Spleen: Spleen is globally enlarged in size at 16.6 cm craniocaudad, and homogeneous in echotexture. Kidneys: Kidneys are normal in size and echotexture. Right kidney measures 12.2 cm long; left kidney measures 12.9 cm long. No hydronephrosis or nephrolithiasis. No solid masses. Aorta: Visualized aorta is normal in caliber at less than 3 cm. in the distal third of the aortic was obscured by bowel gas. Iliacs: Obscured by bowel gas. IVC: Intrahepatic inferior vena cava is patent. Miscellaneous: No free abdominal fluid. IMPRESSION: Hepatosplenomegaly with a mildly hyperechoic liver echotexture consistent with fatty infiltration. Varices or ascites is not seen. Please correlate for presence of hepatitis, in this clinical circumstance. Mild prominence of the extrahepat ic common duct at 7-8 mm for a patient with gallbladder intact. No gallstones found. If unusual symptoms persist followup by MR cholangiogram for common duct calculus may become necessary. Significant portions of the lower abdomen/pelvis were poorly seen due to bowel gas obscuring visualization of the distal third of the aorta and the iliac arteries bilaterally. Dictated by: Ricardo Fuentes M.D. on 07/23/2018 at 10:25 Approved by: Ricardo Fuentes M.D. on 07/23/2018 at 10:28 Chest x-ray: Radiologist's impression: Procedure: XR chest 1V Ordering Provider: Harpal Nam D.O. PROCEDURE: XR CHEST 1V INDICATIONS: chest pain TECHNIQUE: One view of the chest was acquired. COMPARISON: [facility], , CHEST 2 VIEW, 03/12/2015, 10:18. FINDINGS: Surgical changes and devices: None. Lungs and pleura: Lungs are mildly edematous. No pleural effusions or pneumothorax. Mediastinum: Mediastinal contours appear normal. Heart size is mildly enlarged. Bones and chest wall: No suspicious bony lesions. Overlying soft tissues appear unremarkable. IMPRESSION: Mild pulmonary edema with mild cardiomegaly, probable acute exacerbation of chronic CHF. Dictated by: Ricardo Fuentes M.D. on 07/23/2018 at 9:39 Approved by: Ricardo Fuentes M.D. on 07/23/2018 at 9:39 MDM Narrative Medical decision making narrative: 57M with DM, HTN, obesity presents with N/V, epigastric pain, SOB. EKG shows RBBB which appears new since 2016. Epigastric pain worse on palpation, unremarkable belly labs, US shows no acute finding. Troponin critically elevated. CTA demonstrates no PE. Heparin ordered. Transfer needed to further evaluate symptoms and troponin, which strongly suggest cardiac etioliogy. Critical Care Time Critical Care Time: Yes Total Critical Care Time: 30 Attestation: The high probability of a clinically significant, sudden or life threatening deterioration of the [cardiovascular] system(s) required my full and direct attention, intervention and personal management. The aggregate critical care time was [30] minutes. This time is in addition to time spent performing reported procedures but includes the following: [x] Data Review and interpretation [x] Patient assessment and monitoring of vital signs [x] Documentation [x] Medication orders and management Discharge Plan Departure Patient Disposition: [facility] Clinical Impression: ACS (acute coronary syndrome) Discharge Date/Time: 07/23/18 14:06 Interventions: ED Discharge Assessment Last Done: 07/23/18 14:06 Prescriptions: No Action terazosin 5 mg capsule 5 mg PO DAILY RF: 0 carvedilol 25 mg tablet 25 mg PO BID RF: 0 spironolactone 25 mg tablet 50 mg PO DAILY RF: 0 pantoprazole 40 mg tablet,delayed release (DR/EC) 40 mg PO DAILY RF: 0 Combivent Respimat 20-100 mcg/actuation mist 1 inh Inhalation QID RF: 0 albuterol sulfate 2.5 mg /3 mL (0.083 %) solution for nebulization 3 ml Inhalation TID RF: 0 lisinopril 20 mg tablet 20 mg PO BID RF: 0 hydrocodone-acetaminophen 10-325 mg tablet 1 tab PO Q6H PRN (Reason: PAIN) RF: 0 metformin 1,000 mg tablet 1,000 mg PO BID RF: 0 Flovent Diskus 100 mcg/actuation blister with device 1 puff Inhalation BID RF: 0 bupropion HCl 300 mg tablet extended release 24 hr 300 mg PO DAILY RF: 0 glucosamine HCl 1,500 mg Tablet 1 tab PO DAILY RF: 0 cyclobenzaprine 10 mg Tablet 10 mg PO DAILY PRN (Reason: Muscle Spasm) RF: 0 prednisone 10 mg tablet 20 mg PO DAILY RF: 0 epinephrine [EpiPen 2-Lake] 0.3 mg/0.3 mL Auto-Injector 0.3 ml IM PRN PRN (Reason: Allergic Reaction) RF: 0 Referrals: Dayne Osorio MD [Primary Care Provider] -
[2018-07-23] MEDS: HEPARIN 5,000 UNIT/ML VIAL 12300 UNIT IV (10:41)
--- NOTE | 2018-07-23 10:41 | DI.CT.S_ITS ---
PROCEDURE: CT ANGIO CHEST PE PROTOCOL INDICATIONS: chest pain, shortness of breath, positive Trop/BNP TECHNIQUE: After the administration of intravenous contrast, 2 mm thick sections acquired from the pulmonary apices to the posterior costophrenic angles. 3-dimensional maximum intensity projection (MIP) coronal and sagittal reformats were then acquired through the thorax. For radiation dose reduction, the following was used: automated exposure control, adjustment of mA and/or kV according to patient size. COMPARISON: [facility], CR, XR CHEST 1V, 07/23/2018, 9:25. FINDINGS: Image quality: Excellent. Pulmonary arteries: Pulmonary arteries are normal in size, and demonstrate no intraluminal filling defects to suggest central pulmonary embolism. Lungs and pleura: Consolidation is present at the posterior right lung base. Mild atelectasis is present at the left lung base. A questionable 1.0 cm pulmonary mass versus atelectasis is present within the superior segment of the left lower lobe (series 5, image 20). No pleural effusions or pneumothorax. Central and peripheral airways are patent. Mediastinum: Heart size is enlarged, without pericardial effusion. No mediastinal or hilar adenopathy. Thoracic aorta is normal in caliber and enhancement. Scattered atheromatous calcifications are present within the aortic arch. Esophagus is normal in caliber, without hiatal hernia. Bones and chest wall: No suspicious bony lesions. Moderate degenerative changes are present throughout the thoracic spine. Ribs and thoracic spine appear intact throughout. Thyroid gland is unremarkable. No axillary or supraclavicular adenopathy. Abdomen: Visualized upper abdominal solid organs appear normal in the early arterial phase of enhancement. IMPRESSION: 1. No acute pulmonary embolus. 2. Right basilar consolidation suspicious for pneumonia. However, underlying pulmonary neoplasm cannot be excluded and short interval followup is recommended. 3. Mild cardiomegaly. Dictated by: Lorraine Thomas M.D. on 07/23/2018 at 11:10 Approved by: Lorraine Thomas M.D. on 07/23/2018 at 11:27
[2018-07-23 10:45] LABS: B Type Natriuretic Peptide < 100 (<100)
[2018-07-23] MEDS: FUROSEMIDE 40 MG/4 ML VIAL IV (11:03)
[2018-07-23] MEDS: HEPARIN DRIP 25,000 UNIT/500 ML IV.SOLN 37.013 UNIT IV (11:15)
--- NOTE | 2018-07-23 11:24 | PC.NURSE ---
pt's consistant comlaint is nausea. He is more comfortable on Cpap and lying down somewhat. family in room updated on cause and plan. all meds given.
[2018-07-23] MEDS: NITROGLYCERIN 0.4 MG SL TAB SL ×3 (13:25→13:36)
[2018-07-23] MEDS: ACETAMINOPHEN 325 MG TABLET 975 MG PO (13:31)
[2018-07-23] MEDS: ASPIRIN 325 MG TABLET PO (14:06)
== END 2018-07-23 14:06 | disposition short-term general hospital (02) ==
PROVIDERS: Emergency Provider Emergency Medicine; PCP Internal Medicine
DX: I24.9 Acute ischemic heart disease, unspecified (principal); R11.10 Vomiting, unspecified; R53.83 Other fatigue; R06.02 Shortness of breath
CPT/HCPCS: 36415; 36591; 71045; 71275; 76700; 80053; 82550; 82553; 83690; 83880; 84484; 85025; 85610; 85730; 93005; 93010; 94660; 96365; 96366; 96375; 99285; 99291; C9113; J1644; J1940; J2405; Q9967

== ENCOUNTER → 2019-05-10 15:47 | Outpatient (CLI) | payer OTHER, SELFPAY ==
--- NOTE | 2019-05-10 | DI.RAD.S_ITS ---
PROCEDURE: XR ABDOMEN MIN 2V INDICATIONS: ABDOMINAL DISTENSION TECHNIQUE: 2 views of the abdomen were acquired. COMPARISON: None. FINDINGS: Surgical changes and devices: None. Bowel: No pneumoperitoneum. The bowel gas pattern is normal. Soft tissues: No masses; visualized solid organ contours appear normal in size. No suspicious abdominal calcifications. Bones: No suspicious bony abnormalities. Moderate right hip joint degeneration. Left hip arthroplasty . Lytic appearance seen within the posterior column of the left acetabulum, technically age-indeterminate and could be postoperative. Comparison studies could be helpful if obtainable. IMPRESSION: No specific evidence of bowel obstruction seen at this time although if the patient's symptoms do not improve, continued surveillance with abdominal series radiographs could be performed. Dictated by: Bryan France M.D. on 05/10/2019 at 17:53 Approved by: Bryan France M.D. on 05/10/2019 at 17:55
[2019-05-10 19:55] LABS: Add Manual Diff / Slide Review NO; Basophils Absolute Auto 0 /uL (0-100); Basophils Percent Auto 0.3 % (0-2); Eosinophils Absolute Auto 100 /uL (0-450); Eosinophils Percent Auto 1.4 % (2-4); Hematocrit 44.7 % (41-53); Hemoglobin 15.4 g/dL (13.5-17.5); Lymphocytes Absolute Auto 1500 /uL (1100-4500); Lymphocytes Percent Auto 16.2 % (25-40); Mean Corpuscular HGB Conc 34.5 % (30-36); Mean Corpuscular Hemoglobin 32.6 PG (26-34); Mean Corpuscular Volume 94.6 fL (80-100); Monocytes Absolute Auto 900 /uL (0-900); Monocytes Percent Auto 9.2 % (3-14); Neutrophils Absolute Auto 6800 /uL (1500-7000); Neutrophils Percent Auto 72.9 % (50-75); Platelet Count 115 X10^3/uL (150-400); Red Blood Cell Count 4.73 X10^6/uL (4.5-5.9); Red Cell Distribution Width 13.2 % (11.6-14.8); White Blood Cell Count 9.3 X10^3/uL (4.5-11.0)
[2019-05-10 20:07] LABS: Alanine Aminotransferase 16 IU/L (<50); Albumin 3.7 g/dL (3.5-5.0); Albumin Globulin Ratio 1.2 (1.0-2.8); Alkaline Phosphatase 112 U/L (38-126); Aspartate Aminotransferase 24 IU/L (17-59); BUN Creatinine Ratio 22.3 (6-22); Bilirubin Total 0.6 mg/dL (0.2-1.3); Blood Urea Nitrogen 29 mg/dL (9-20); Calcium 9.5 mg/dL (8.4-10.2); Carbon Dioxide 23 mmol/L (22-32); Chloride 100 mmol/L (98-107); Estimated Glomerular Filt Rate 56.5 mL/min (>60); Globulin 3.2 g/dL (1.7-4.1); Glucose 90 mg/dL (70-100); HEMOLYSIS 19 (0-50); Potassium 4.2 mmol/L (3.4-5.1); Sodium 134 mmol/L (137-145); Total Protein 6.9 g/dL (6.3-8.2)
== END ==
PROVIDERS: PCP Internal Medicine; Visit Provider Physician Assistant
DX: R14.0 Abdominal distension (gaseous) (principal); R10.9 Unspecified abdominal pain; K59.00 Constipation, unspecified; M16.11 Unilateral primary osteoarthritis, right hip; Z96.642 Presence of left artificial hip joint
CPT/HCPCS: 74019; 80053; 85025

== ENCOUNTER → 2019-06-27 10:34 | Outpatient (CLI) | payer OTHER, SELFPAY ==
[2019-06-27 11:01] LABS: Add Manual Diff / Slide Review NO; Basophils Absolute Auto 0 /uL (0-100); Basophils Percent Auto 0.7 % (0-2); Eosinophils Absolute Auto 100 /uL (0-450); Eosinophils Percent Auto 1.8 % (2-4); Hematocrit 44.7 % (41-53); Hemoglobin 15.3 g/dL (13.5-17.5); Lymphocytes Absolute Auto 1200 /uL (1100-4500); Lymphocytes Percent Auto 24.9 % (25-40); Mean Corpuscular HGB Conc 34.1 % (30-36); Mean Corpuscular Hemoglobin 32.6 PG (26-34); Mean Corpuscular Volume 95.5 fL (80-100); Monocytes Absolute Auto 500 /uL (0-900); Monocytes Percent Auto 9.7 % (3-14); Neutrophils Absolute Auto 3000 /uL (1500-7000); Neutrophils Percent Auto 62.9 % (50-75); Platelet Count 105 X10^3/uL (150-400); Red Blood Cell Count 4.68 X10^6/uL (4.5-5.9); Red Cell Distribution Width 13.8 % (11.6-14.8); White Blood Cell Count 4.8 X10^3/uL (4.5-11.0)
[2019-06-27 11:19] LABS: Alanine Aminotransferase 21 IU/L (<50); Albumin 4.2 g/dL (3.5-5.0); Albumin Globulin Ratio 1.2 (1.0-2.8); Alkaline Phosphatase 91 U/L (38-126); Aspartate Aminotransferase 26 IU/L (17-59); BUN Creatinine Ratio 29.7 (6-22); Bilirubin Total 0.6 mg/dL (0.2-1.3); Blood Urea Nitrogen 35 mg/dL (9-20); Calcium 9.7 mg/dL (8.4-10.2); Carbon Dioxide 26 mmol/L (22-32); Chloride 105 mmol/L (98-107); Estimated Glomerular Filt Rate > 60.0 mL/min (>60); Globulin 3.5 g/dL (1.7-4.1); Glucose 107 mg/dL (70-100); HEMOLYSIS 19 (0-50); Potassium 4.7 mmol/L (3.4-5.1); Sodium 136 mmol/L (137-145); Total Protein 7.7 g/dL (6.3-8.2)
== END ==
PROVIDERS: PCP Internal Medicine; Referring Provider Internal Medicine; Visit Provider Internal Medicine
DX: E11.9 Type 2 diabetes mellitus without complications (principal); I10 Essential (primary) hypertension; K76.0 Fatty (change of) liver, not elsewhere classified
CPT/HCPCS: 36415; 80053; 85025

== ENCOUNTER 2024-02-16 13:06 | Inpatient (IN) | payer OTHER, SELFPAY ==
[2024-02-16] VITALS (14 sets, daily range): BP systolic 115–189; BP diastolic 77–100; PULSE 72–129; RESP 17–21; TEMP 36.1; O2SAT 94–98; BMI 39.9; BMI 37.7
--- NOTE | 2024-02-16 13:36 | DI.RAD.S_ITS ---
PROCEDURE: XR FOOT LT MIN 3V INDICATIONS: wound, diabetic hx TECHNIQUE: 3 views of the foot were acquired. COMPARISON: None. FINDINGS: Bones: No fractures or dislocations. Question bone abscess in the 3rd cuneiform. A cystic lesion measures 6 mm in diameter. Soft tissues: No tibiotalar joint effusion. Achilles tendon appears normal. Dorsal soft tissue swelling. IMPRESSION: Question 3rd cuneiform bone abscess. Comment: Consider MRI with without contrast for confirmation. Dictated by: Vinny Gonzalez M.D. on 02/16/2024 at 14:00 Approved by: Vinny Gonzalez M.D. on 02/16/2024 at 14:03
--- NOTE | 2024-02-16 15:52 | PC.NURSE ---
Pedal pulse palpated of left foot and present
--- NOTE | 2024-02-16 16:16 | ED_ITS ---
HPI - Wound/Laceration <Wandy Silva DO - Last Filed: 02/19/24 07:11> General Chief Complaint: Wound/Laceration Stated Complaint: px infection in lft leg and foot Time Seen by Provider: 02/16/24 16:11 Source: patient Mode of arrival: Wheelchair History of Present Illness HPI narrative: 63-year-old male former smoker, history of COPD, type 2 diabetes, CHF, coronary artery disease with prior cardiac stent who presents with complaint of wound on his left calf that showed up about 6 weeks ago he has had 2 rounds of antibiotics most recently amoxicillin. He states leg has been a little bit swollen but then developed redness and swelling over the dorsum of a split as well as a blister and pain that is new in the last several days. Patient states has had increasing swelling over time. He notes no fevers, no chest pain shortness of breath, no nausea or vomiting no other GI or urinary symptoms. States the initial injury on the calf was from hitting of the edge of a box which caused a skin tear. He does not recall any trauma to the foot. He has been told to follow up with wound care but has not been able to establish. States allergy to codeine. States prior hip replacement, prior coronary artery stent. Former smoker, no regular alcohol uses marijuana no IV drugs. He is accompanied by family. Related Data Home Medications Medication Instructions Recorded Confirmed albuterol sulfate 2.5 mg/3 mL 3 ml inhalation TID 07/23/18 02/16/24 (0.083 %) solution for nebulization carvedilol 25 mg tablet 12.5 mg PO BID 07/23/18 02/16/24 cyclobenzaprine 10 mg tablet 10 mg PO DAILY PRN Muscle Spasm 07/23/18 02/16/24 fluticasone propionate 100 1 puff inhalation BID 07/23/18 02/16/24 mcg/actuation blister powder for inhalation glucosamine HCl 1,500 mg tablet 1 tab PO DAILY 07/23/18 02/16/24 ipratropium 20 mcg-albuterol 100 1 inh inhalation QID wheezing 07/23/18 02/16/24 mcg/actuation mist for inhalation spironolactone 25 mg tablet 50 mg PO DAILY 07/23/18 02/16/24 terazosin 5 mg capsule 5 mg PO DAILY 07/23/18 02/16/24 Allergies Allergy/AdvReac Type Severity Reaction Status Date / Time codeine [CODEINE] Allergy Unknown Hallucinati Verified 02/16/24 13:28 ng Review of Systems <Wandy Silva DO - Last Filed: 02/19/24 07:11> Review of Systems ROS Unobtainable: All systems reviewed & are unremarkable except as noted in HPI and below Patient History <Wandy Silva DO - Last Filed: 02/19/24 07:11> Medical History Enlarged prostate Obesity Hypertension Congestive heart failure Social History household members: family Smoking Status: Former smoker alcohol intake: former Smoking Status: Former smoker alcohol intake frequency: 0-2 drinks per day Substance Use Type: marijuana Exam <Wandy Silva DO - Last Filed: 02/19/24 07:11> Narrative Exam Narrative: GENERAL: Alert and oriented x three, obese male in mild distress HEENT: Head normocephalic, atraumatic, EOMI, pupils reactive, face symmetric, moist mucous membranes NECK: Supple, full range of motion CARDIOVASCULAR: Regular rate and rhythm without murmurs, rubs or gallops. RESPIRATORY: Breath sounds equal bilaterally, no wheezes rales or rhonchi. ABDOMEN: Soft, nontender. Normoactive bowel sounds all 4 quadrants. No guarding or rebound, rigidity, no mass : No CVA tenderness EXTREMITIES: Normal range of motion, no clubbing. Patient has a edema of the left lower extremity comparison to the right. There is about a cm and a half circular wound on the upper lateral calf that is scabbed, no active drainage, there is erythema and swelling down the leg and into the dorsum of the foot. There has also a small blister on the underside of the foot. Patient has no fluctuance, does have some induration. He has a edema throughout. Cap refill is intact. Patient is tender over the foot laterally and on the dorsum and underside. There is a foul odor. There was no drainage or open wound from the foot. NEUROLOGICAL: Cranial nerves II through XII grossly intact. Moving all extremities SKIN: Warm, dry, no petechiae, see above. Initial Vital Signs Initial Vital Signs: Vital Signs Temperature 97.0 F L 02/16/24 13:28 Pulse Rate 72 02/16/24 13:28 Respiratory Rate 17 02/16/24 13:28 Blood Pressure 142/93 H 02/16/24 13:28 Pulse Oximetry 96 02/16/24 13:28 Oxygen Delivery Method Room Air 02/16/24 13:28 <Bay Herring, DO - Last Filed: 02/17/24 00:37> Initial Vital Signs Initial Vital Signs: Vital Signs Temperature 97.0 F L 02/16/24 13:28 Pulse Rate 72 02/16/24 13:28 Respiratory Rate 17 02/16/24 13:28 Blood Pressure 142/93 H 02/16/24 13:28 Pulse Oximetry 96 02/16/24 13:28 Oxygen Delivery Method Room Air 02/16/24 13:28 Course <Wandy Silva, DO - Last Filed: 02/19/24 07:11> Orders Ordered: Acetaminophen (Acetaminophen 325 Mg Tablet) 650 mg PO Q6H PRN PRN Reason: Fever/Mild Pain (1-3) Last Admin: 02/18/24 21:10 Dose: 650 mg Documented By: Admin: 02/18/24 01:23 Dose: 650 mg Documented By: Admin: 02/17/24 10:18 Dose: 650 mg Documented By: Admin: 02/16/24 23:01 Dose: 650 mg Documented By: GABRIEL Al Hydrox/Mg Hydrox/Simethicone (Mag Hydrox/Alum/Simeth 30 Ml Udc) 30 ml PO Q6HR PRN PRN Reason: Dyspepsia Albuterol (Albuterol 2.5 Mg/3 Ml Neb (Adult)) 2.5 mg INH [id number] PRN PRN Reason: Shortness Of Breath Last Admin: 02/18/24 16:41 Dose: 2.5 mg Documented By: Admin: 02/18/24 01:04 Dose: 2.5 mg Documented By: Admin: 02/17/24 07:04 Dose: 2.5 mg Documented By: Admin: 02/17/24 04:00 Dose: 2.5 mg Documented By: [place]TE Aspirin (Aspirin Ec 81 Mg Tablet) 81 mg PO DAILY [facility] Last Admin: 02/18/24 08:42 Dose: 81 mg Documented By: MS Carvedilol (Carvedilol 12.5 Mg Tablet) 12.5 mg PO BID [facility] Last Admin: 02/18/24 21:11 Dose: 12.5 mg Documented By: Admin: 02/18/24 08:42 Dose: 12.5 mg Documented By: Admin: 02/17/24 20:30 Dose: 12.5 mg Documented By: Admin: 02/17/24 08:24 Dose: 12.5 mg Documented By: Admin: 02/17/24 00:22 Dose: 12.5 mg Documented By: SH Cyclobenzaprine HCl (Cyclobenzaprine 10 Mg Tablet) 10 mg PO DAILY PRN PRN Reason: Muscle Spasm Last Admin: 02/19/24 05:03 Dose: 10 mg Documented By: SH Enoxaparin Sodium (Enoxaparin 40 Mg/0.4 Ml Syringe) 40 mg SUBCUT DAILY [facility] Last Admin: 02/18/24 08:43 Dose: 40 mg Documented By: Cefepime HCl 1 gm/ Sodium (Chloride) 100 mls @ 200 mls/hr IV Q12H [facility] Last Infusion: 02/19/24 06:27 Dose: Infused Documented By: Admin: 02/19/24 05:03 Dose: 200 mls/hr Documented By: Infusion: 02/18/24 18:06 Dose: Infused Documented By: Admin: 02/18/24 17:36 Dose: 200 mls/hr Documented By: Infusion: 02/18/24 06:57 Dose: Infused Documented By: Admin: 02/18/24 04:37 Dose: 200 mls/hr Documented By: Infusion: 02/17/24 19:05 Dose: Infused Documented By: Admin: 02/17/24 16:33 Dose: 200 mls/hr Documented By: Infusion: 02/17/24 07:35 Dose: Infused Documented By: Admin: 02/17/24 04:43 Dose: 200 mls/hr Documented By: SH Vancomycin HCl/Dextrose (Vancomycin) 2,000 mg in 400 mls @ 200 mls/hr IV Q24H [facility] Last Admin: 02/19/24 06:26 Dose: 200 mls/hr Documented By: Infusion: 02/18/24 16:43 Dose: Infused Documented By: Admin: 02/18/24 05:38 Dose: 200 mls/hr Documented By: GABRIEL Dextrose (D10w) 100 mls @ 999 mls/hr IV PRN PRN PRN Reason: Hypoglycemia Insulin Human Lispro (Insulin Lispro 100 Unit/Ml 3ml Vial) 0 unit SUBCUT [facility]; Protocol Last Admin: 02/18/24 21:09 Dose: Not Given Documented By: Admin: 02/18/24 17:26 Dose: Not Given Documented By: Admin: 02/18/24 12:29 Dose: Not Given Documented By: [place] Metformin HCl (Metformin Hcl 500 Mg Tablet) [facility] Admin: 02/18/24 17:25 Dose: Not Given Documented By: Admin: 02/18/24 09:44 Dose: Not Given Documented By: Admin: 02/17/24 16:35 Dose: Not Given Documented By: Admin: 02/17/24 08:26 Dose: Not Given Documented By: ENRIKE Naloxone HCl (Naloxone 0.4 Mg/Ml Vial) 0.2 mg IV Q2MIN PRN PRN Reason: Opiate Reversal Fluticasone (Propionate 100mcg) 1 each [facility] Last Admin: 02/18/24 21:00 Dose: 1 each Documented By: GABRIEL Ipratropium/Albuterol (Combivent Respimat) 20/100mcg 1 each [facility] Last Admin: 02/18/24 21:00 Dose: 1 each Documented By: Admin: 02/18/24 15:00 Dose: 1 each Documented By: Ondansetron HCl (Ondansetron 4 Mg/2 Ml Inj) 4 mg IV Q8HR PRN PRN Reason: Nausea And Vomiting Oxycodone HCl (Oxycodone Ir 5 Mg Tablet) 5 mg PO Q3H PRN PRN Reason: Pain, Moderate (4-6) Last Admin: 02/19/24 02:57 Dose: 5 mg Documented By: Admin: 02/18/24 21:11 Dose: 5 mg Documented By: Admin: 02/18/24 17:49 Dose: 5 mg Documented By: Admin: 02/18/24 06:56 Dose: 5 mg Documented By: Admin: 02/18/24 01:23 Dose: 5 mg Documented By: Admin: 02/17/24 10:18 Dose: 5 mg Documented By: Admin: 02/16/24 23:01 Dose: 5 mg Documented By: SH Oxycodone HCl (Oxycodone Ir 10 Mg Tablet) 10 mg PO Q3H PRN PRN Reason: Pain, Severe (7-10) Last Admin: 02/19/24 06:24 Dose: 10 mg Documented By: Admin: 02/18/24 13:14 Dose: 10 mg Documented By: Admin: 02/18/24 09:59 Dose: 10 mg Documented By: Admin: 02/17/24 20:29 Dose: 10 mg Documented By: Admin: 02/17/24 15:41 Dose: 10 mg Documented By: Admin: 02/17/24 07:07 Dose: 10 mg Documented By: Admin: 02/17/24 03:50 Dose: 10 mg Documented By: GABRIEL Sodium Chloride (Sodium Chloride 0.9% Flush) 10 ml IV PRN PRN PRN Reason: Flush Spironolactone (Spironolactone 25 Mg Tablet) 50 mg PO DAILY [facility] Last Admin: 02/18/24 08:42 Dose: 50 mg Documented By: Admin: 02/17/24 08:26 Dose: 50 mg Documented By: ENRIKE Terazosin HCl (Terazosin 1 Mg Capsule) 5 mg PO DAILY [facility] Last Admin: 02/18/24 08:42 Dose: 5 mg Documented By: Admin: 02/17/24 08:26 Dose: 5 mg Documented By: ENRIKE Vancomycin HCl (Vancomycin Per Pharmacy) 1 request MISC NOW PRN PRN Reason: cellulitis Discontinued Medications Albuterol/Ipratropium (Albuterol/Ipratropium 3 Ml Ampul) 3 ml INH RTQID [facility] Last Admin: 02/18/24 10:50 Dose: 3 ml Documented By: GAGANDEEP(2) Admin: 02/18/24 07:35 Dose: 3 ml Documented By: GAGANDEEP(2) Admin: 02/17/24 17:57 Dose: 3 ml Documented By: Admin: 02/17/24 14:45 Dose: 3 ml Documented By: Admin: 02/17/24 11:34 Dose: 3 ml Documented By: Admin: 02/17/24 07:04 Dose: Not Given Documented By: SHARMILA Budesonide (Budesonide 0.5 Mg/2 Ml Neb) 0.5 mg INH RTBID [facility] Last Admin: 02/18/24 07:35 Dose: 0.5 mg Documented By: GAGANDEEP(2) Admin: 02/17/24 17:57 Dose: 0.5 mg Documented By: Admin: 02/17/24 07:04 Dose: 0.5 mg Documented By: SHARMILA Enoxaparin Sodium (Enoxaparin 30 Mg/0.3 Ml Syringe) 30 mg SUBCUT DAILY [facility] Last Admin: 02/17/24 08:26 Dose: 30 mg Documented By: ENRIKE Vancomycin HCl/Dextrose (Vancomycin) 2,000 mg in 400 mls @ 200 mls/hr IV NOW ONE Stop: 02/16/24 18:42 Last Infusion: 02/16/24 21:05 Dose: Infused Documented By: Admin: 02/16/24 18:55 Dose: 200 mls/hr Documented By: ROSENDO Cefepime HCl 2 gm/ Sodium (Chloride) 100 mls @ 200 mls/hr IV NOW ONE Stop: 02/16/24 16:42 Last Infusion: 02/16/24 18:55 Dose: Infused Documented By: Infusion: 02/16/24 18:20 Dose: 200 mls/hr Documented By: Infusion: 02/16/24 18:04 Dose: 0 mls/hr Documented By: Admin: 02/16/24 17:37 Dose: 200 mls/hr Documented By: JOSEPH Sodium Chloride (Normal Saline 0.9%) 1,000 mls @ 100 mls/hr IV CONT [facility] Last Admin: 02/18/24 06:52 Dose: 100 mls/hr Documented By: Infusion: 02/18/24 06:29 Dose: Infused Documented By: Admin: 02/17/24 20:29 Dose: 100 mls/hr Documented By: Infusion: 02/17/24 20:19 Dose: Infused Documented By: Admin: 02/17/24 10:19 Dose: 100 mls/hr Documented By: Infusion: 02/17/24 08:42 Dose: Infused Documented By: Admin: 02/16/24 22:42 Dose: 100 mls/hr Documented By: GABRIEL Vancomycin HCl/Dextrose (Vancomycin) 2,000 mg in 400 mls @ 200 mls/hr IV Q12H [facility] Last Infusion: 02/17/24 08:19 Dose: Infused Documented By: Admin: 02/17/24 05:23 Dose: 200 mls/hr Documented By: GABRIEL Ibuprofen (Ibuprofen 400 Mg Tablet) 800 mg PO NOW ONE Stop: 02/16/24 18:15 Last Admin: 02/16/24 19:04 Dose: 800 mg Documented By: FABIOLA Non-Formulary Medication (Carvedilol) 12.5 mg PO BID [facility] Last Admin: 02/17/24 00:30 Dose: Not Given Documented By: GABRIEL Vancomycin HCl (Vancomycin Trough) 1 request [facility] 0530 ONE Stop: 02/19/24 05:31 Vital Signs Vital signs: Vital Signs - 8 hr 02/16/24 17:22 02/16/24 17:22 02/16/24 17:30 Pulse Rate 108 H Respiratory Rate Blood Pressure 115/82 118/77 Pulse Oximetry 96 Oxygen Delivery Method Room Air 02/16/24 17:30 02/16/24 18:00 02/16/24 18:36 Pulse Rate 81 113 H 107 H Respiratory Rate Blood Pressure Pulse Oximetry 97 97 96 Oxygen Delivery Method Room Air 02/16/24 18:38 02/16/24 18:38 02/16/24 18:39 Pulse Rate 115 H Respiratory Rate Blood Pressure 189/100 H 154/84 H Pulse Oximetry 96 Oxygen Delivery Method 02/16/24 18:39 02/16/24 19:00 02/16/24 19:00 Pulse Rate 129 H 123 H Respiratory Rate 19 21 Blood Pressure 152/94 H Pulse Oximetry 98 96 Oxygen Delivery Method 02/16/24 19:30 02/16/24 19:31 02/16/24 19:31 Pulse Rate 121 H 120 H Respiratory Rate Blood Pressure 117/86 Pulse Oximetry 96 96 Oxygen Delivery Method 02/16/24 20:00 02/16/24 20:01 02/16/24 20:01 Pulse Rate 119 H 119 H Respiratory Rate Blood Pressure 148/83 H Pulse Oximetry 95 96 Oxygen Delivery Method 02/16/24 20:30 02/16/24 20:30 02/16/24 21:00 Pulse Rate 128 H Respiratory Rate Blood Pressure 144/81 H 143/90 H Pulse Oximetry 95 Oxygen Delivery Method 02/16/24 21:00 Pulse Rate 123 H Respiratory Rate 20 Blood Pressure Pulse Oximetry 94 Oxygen Delivery Method Room Air <Bay Herring DO - Last Filed: 02/17/24 00:37> Orders Ordered: Acetaminophen (Acetaminophen 325 Mg Tablet) 650 mg PO Q6H PRN PRN Reason: Fever/Mild Pain (1-3) Last Admin: 02/18/24 21:10 Dose: 650 mg Documented By: Admin: 02/18/24 01:23 Dose: 650 mg Documented By: Admin: 02/17/24 10:18 Dose: 650 mg Documented By: Admin: 02/16/24 23:01 Dose: 650 mg Documented By: GABRIEL Al Hydrox/Mg Hydrox/Simethicone (Mag Hydrox/Alum/Simeth 30 Ml Udc) 30 ml PO Q6HR PRN PRN Reason: Dyspepsia Albuterol (Albuterol 2.5 Mg/3 Ml Neb (Adult)) 2.5 mg INH [id number] PRN PRN Reason: Shortness Of Breath Last Admin: 02/18/24 16:41 Dose: 2.5 mg Documented By: Admin: 02/18/24 01:04 Dose: 2.5 mg Documented By: Admin: 02/17/24 07:04 Dose: 2.5 mg Documented By: Admin: 02/17/24 04:00 Dose: 2.5 mg Documented By: [place] Aspirin (Aspirin Ec 81 Mg Tablet) 81 mg PO DAILY [facility] Last Admin: 02/18/24 08:42 Dose: 81 mg Documented By: Carvedilol (Carvedilol 12.5 Mg Tablet) 12.5 mg PO BID [facility] Last Admin: 02/18/24 21:11 Dose: 12.5 mg Documented By: Admin: 02/18/24 08:42 Dose: 12.5 mg Documented By: Admin: 02/17/24 20:30 Dose: 12.5 mg Documented By: Admin: 02/17/24 08:24 Dose: 12.5 mg Documented By: Admin: 02/17/24 00:22 Dose: 12.5 mg Documented By: GABRIEL Cyclobenzaprine HCl (Cyclobenzaprine 10 Mg Tablet) 10 mg PO DAILY PRN PRN Reason: Muscle Spasm Last Admin: 02/19/24 05:03 Dose: 10 mg Documented By: GABRIEL Enoxaparin Sodium (Enoxaparin 40 Mg/0.4 Ml Syringe) 40 mg SUBCUT DAILY [facility] Last Admin: 02/18/24 08:43 Dose: 40 mg Documented By: Cefepime HCl 1 gm/ Sodium (Chloride) 100 mls @ 200 mls/hr IV Q12H [facility] Last Infusion: 02/19/24 06:27 Dose: Infused Documented By: Admin: 02/19/24 05:03 Dose: 200 mls/hr Documented By: Infusion: 02/18/24 18:06 Dose: Infused Documented By: Admin: 02/18/24 17:36 Dose: 200 mls/hr Documented By: Infusion: 02/18/24 06:57 Dose: Infused Documented By: Admin: 02/18/24 04:37 Dose: 200 mls/hr Documented By: Infusion: 02/17/24 19:05 Dose: Infused Documented By: Admin: 02/17/24 16:33 Dose: 200 mls/hr Documented By: Infusion: 02/17/24 07:35 Dose: Infused Documented By: Admin: 02/17/24 04:43 Dose: 200 mls/hr Documented By: GABRIEL Vancomycin HCl/Dextrose (Vancomycin) 2,000 mg in 400 mls @ 200 mls/hr IV Q24H [facility] Last Admin: 02/19/24 06:26 Dose: 200 mls/hr Documented By: Infusion: 02/18/24 16:43 Dose: Infused Documented By: Admin: 02/18/24 05:38 Dose: 200 mls/hr Documented By: GABRIEL Dextrose (D10w) 100 mls @ 999 mls/hr IV PRN PRN PRN Reason: Hypoglycemia Insulin Human Lispro (Insulin Lispro 100 Unit/Ml 3ml Vial) 0 unit SUBCUT ACHS [facility]; Protocol Last Admin: 02/18/24 21:09 Dose: Not Given Documented By: Admin: 02/18/24 17:26 Dose: Not Given Documented By: Admin: 02/18/24 12:29 Dose: Not Given Documented By: [place] Metformin HCl (Metformin Hcl 500 Mg Tablet) 1,000 mg PO BIDWM [facility] Last Admin: 02/18/24 17:25 Dose: Not Given Documented By: Admin: 02/18/24 09:44 Dose: Not Given Documented By: Admin: 02/17/24 16:35 Dose: Not Given Documented By: Admin: 02/17/24 08:26 Dose: Not Given Documented By: ENRIKE Naloxone HCl (Naloxone 0.4 Mg/Ml Vial) 0.2 mg IV Q2MIN PRN PRN Reason: Opiate Reversal Fluticasone (Propionate 100mcg) 1 each INH RTBID [facility] Last Admin: 02/18/24 21:00 Dose: 1 each Documented By: GABRIEL Ipratropium/Albuterol (Combivent Respimat) 20/100mcg 1 each INH RTQID [facility] Last Admin: 02/18/24 21:00 Dose: 1 each Documented By: Admin: 02/18/24 15:00 Dose: 1 each Documented By: Ondansetron HCl (Ondansetron 4 Mg/2 Ml Inj) 4 mg IV Q8HR PRN PRN Reason: Nausea And Vomiting Oxycodone HCl (Oxycodone Ir 5 Mg Tablet) 5 mg PO Q3H PRN PRN Reason: Pain, Moderate (4-6) Last Admin: 02/19/24 02:57 Dose: 5 mg Documented By: Admin: 02/18/24 21:11 Dose: 5 mg Documented By: Admin: 02/18/24 17:49 Dose: 5 mg Documented By: Admin: 02/18/24 06:56 Dose: 5 mg Documented By: Admin: 02/18/24 01:23 Dose: 5 mg Documented By: Admin: 02/17/24 10:18 Dose: 5 mg Documented By: Admin: 02/16/24 23:01 Dose: 5 mg Documented By: GABRIEL Oxycodone HCl (Oxycodone Ir 10 Mg Tablet) 10 mg PO Q3H PRN PRN Reason: Pain, Severe (7-10) Last Admin: 02/19/24 06:24 Dose: 10 mg Documented By: Admin: 02/18/24 13:14 Dose: 10 mg Documented By: Admin: 02/18/24 09:59 Dose: 10 mg Documented By: Admin: 02/17/24 20:29 Dose: 10 mg Documented By: Admin: 02/17/24 15:41 Dose: 10 mg Documented By: Admin: 02/17/24 07:07 Dose: 10 mg Documented By: Admin: 02/17/24 03:50 Dose: 10 mg Documented By: GABRIEL Sodium Chloride (Sodium Chloride 0.9% Flush) 10 ml IV PRN PRN PRN Reason: Flush Spironolactone (Spironolactone 25 Mg Tablet) 50 mg PO DAILY [facility] Last Admin: 02/18/24 08:42 Dose: 50 mg Documented By: Admin: 02/17/24 08:26 Dose: 50 mg Documented By: ENRIKE Terazosin HCl (Terazosin 1 Mg Capsule) 5 mg PO DAILY [facility] Last Admin: 02/18/24 08:42 Dose: 5 mg Documented By: Admin: 02/17/24 08:26 Dose: 5 mg Documented By: ENRIKE Vancomycin HCl (Vancomycin Per Pharmacy) 1 request MISC NOW PRN PRN Reason: cellulitis Discontinued Medications Albuterol/Ipratropium (Albuterol/Ipratropium 3 Ml Ampul) 3 ml INH RTQID [facility] Last Admin: 02/18/24 10:50 Dose: 3 ml Documented By: GAGANDEEP(2) Admin: 02/18/24 07:35 Dose: 3 ml Documented By: GAGANDEEP(2) Admin: 02/17/24 17:57 Dose: 3 ml Documented By: Admin: 02/17/24 14:45 Dose: 3 ml Documented By: Admin: 02/17/24 11:34 Dose: 3 ml Documented By: Admin: 02/17/24 07:04 Dose: Not Given Documented By: SHARMILA Budesonide (Budesonide 0.5 Mg/2 Ml Neb) 0.5 mg INH RTBID [facility] Last Admin: 02/18/24 07:35 Dose: 0.5 mg Documented By: GAGANDEEP(2) Admin: 02/17/24 17:57 Dose: 0.5 mg Documented By: Admin: 02/17/24 07:04 Dose: 0.5 mg Documented By: SHARMILA Enoxaparin Sodium (Enoxaparin 30 Mg/0.3 Ml Syringe) 30 mg SUBCUT DAILY [facility] Last Admin: 02/17/24 08:26 Dose: 30 mg Documented By: ENRIKE Vancomycin HCl/Dextrose (Vancomycin) 2,000 mg in 400 mls @ 200 mls/hr IV NOW ONE Stop: 02/16/24 18:42 Last Infusion: 02/16/24 21:05 Dose: Infused Documented By: Admin: 02/16/24 18:55 Dose: 200 mls/hr Documented By: ROSENDO Cefepime HCl 2 gm/ Sodium (Chloride) 100 mls @ 200 mls/hr IV NOW ONE Stop: 02/16/24 16:42 Last Infusion: 02/16/24 18:55 Dose: Infused Documented By: Infusion: 02/16/24 18:20 Dose: 200 mls/hr Documented By: Infusion: 02/16/24 18:04 Dose: 0 mls/hr Documented By: Admin: 02/16/24 17:37 Dose: 200 mls/hr Documented By: JOSEPH Sodium Chloride (Normal Saline 0.9%) 1,000 mls @ 100 mls/hr IV CONT [facility] Last Admin: 02/18/24 06:52 Dose: 100 mls/hr Documented By: Infusion: 02/18/24 06:29 Dose: Infused Documented By: Admin: 02/17/24 20:29 Dose: 100 mls/hr Documented By: Infusion: 02/17/24 20:19 Dose: Infused Documented By: Admin: 02/17/24 10:19 Dose: 100 mls/hr Documented By: Infusion: 02/17/24 08:42 Dose: Infused Documented By: Admin: 02/16/24 22:42 Dose: 100 mls/hr Documented By: GABRIEL Vancomycin HCl/Dextrose (Vancomycin) 2,000 mg in 400 mls @ 200 mls/hr IV Q12H [facility] Last Infusion: 02/17/24 08:19 Dose: Infused Documented By: Admin: 02/17/24 05:23 Dose: 200 mls/hr Documented By: GABRIEL Ibuprofen (Ibuprofen 400 Mg Tablet) 800 mg PO NOW ONE Stop: 02/16/24 18:15 Last Admin: 02/16/24 19:04 Dose: 800 mg Documented By: FABIOLA Non-Formulary Medication (Carvedilol) 12.5 mg PO BID [facility] Last Admin: 02/17/24 00:30 Dose: Not Given Documented By: GABRIEL Vancomycin HCl (Vancomycin Trough) 1 request [facility] 8322 ONE Stop: 02/19/24 05:31 Vital Signs Vital signs: Vital Signs - 8 hr 02/16/24 17:22 02/16/24 17:22 02/16/24 17:30 Pulse Rate 108 H Respiratory Rate Blood Pressure 115/82 118/77 Pulse Oximetry 96 Oxygen Delivery Method Room Air 02/16/24 17:30 02/16/24 18:00 02/16/24 18:36 Pulse Rate 81 113 H 107 H Respiratory Rate Blood Pressure Pulse Oximetry 97 97 96 Oxygen Delivery Method Room Air 02/16/24 18:38 02/16/24 18:38 02/16/24 18:39 Pulse Rate 115 H Respiratory Rate Blood Pressure 189/100 H 154/84 H Pulse Oximetry 96 Oxygen Delivery Method 02/16/24 18:39 02/16/24 19:00 02/16/24 19:00 Pulse Rate 129 H 123 H Respiratory Rate 19 21 Blood Pressure 152/94 H Pulse Oximetry 98 96 Oxygen Delivery Method 02/16/24 19:30 02/16/24 19:31 02/16/24 19:31 Pulse Rate 121 H 120 H Respiratory Rate Blood Pressure 117/86 Pulse Oximetry 96 96 Oxygen Delivery Method 02/16/24 20:00 02/16/24 20:01 02/16/24 20:01 Pulse Rate 119 H 119 H Respiratory Rate Blood Pressure 148/83 H Pulse Oximetry 95 96 Oxygen Delivery Method 02/16/24 20:30 02/16/24 20:30 02/16/24 21:00 Pulse Rate 128 H Respiratory Rate Blood Pressure 144/81 H 143/90 H Pulse Oximetry 95 Oxygen Delivery Method 02/16/24 21:00 Pulse Rate 123 H Respiratory Rate 20 Blood Pressure Pulse Oximetry 94 Oxygen Delivery Method Room Air MDM - Wound/Laceration <Wandy Silva, - Last Filed: 02/19/24 07:11> Lab Data 02/19/24 05:35 02/19/24 05:35 Labs: Lab Results 02/16/24 Range/Units 16:51 WBC 13.0 H (4.5-11.0) X10^3/uL RBC 5.18 (4.5-5.9) X10^6/uL Hgb 16.6 (13.5-17.5) g/dL Hct 49.1 (41-53) % MCV 94.9 (80-100) fL MCH 32.1 (26-34) PG MCHC 33.8 (30-36) % RDW 13.7 (11.6-14.8) % Plt Count 167 (150-400) X10^3/uL Neut % (Auto) 86.5 H (50-75) % Lymph % (Auto) 6.1 L (25-40) % [place] % (Auto) 6.9 (3-14) % Eos % (Auto) 0.1 L (2-4) % Baso % (Auto) 0.4 (0-2) % Neut # (Auto) 89663 H (6768-5732) /uL Lymph # (Auto) 800 L (0067-0979) /uL [place] # (Auto) 900 (0-900) /uL Eos # (Auto) 0 (0-450) /uL Baso # (Auto) 0 (0-100) /uL Sodium 133 L (137-145) mmol/L Potassium 4.7 (3.4-5.1) mmol/L Chloride 96 L (98-107) mmol/L Carbon Dioxide 26 (22-32) mmol/L BUN 31 H (9-20) mg/dL Creatinine 1.31 H (0.66-1.25) mg/dL Estimated GFR > 60 (>60) mL/min BUN/Creatinine Ratio 23.7 H (6-22) Glucose 109 (80-110) mg/dL Calcium 9.9 (8.4-10.2) mg/dL Total Bilirubin 1.1 (0.2-1.3) mg/dL AST 20 (17-59) IU/L ALT 14 (<50) IU/L Alkaline Phosphatase 103 (38-126) U/L C-Reactive Protein 20.8 H (<1.0) mg/dL Total Protein 8.4 H (6.3-8.2) g/dL Albumin 4.0 (3.5-5.0) g/dL Globulin 4.4 H (1.7-4.1) g/dL Albumin/Globulin Ratio 0.9 L (1.0-2.8) Procalcitonin 0.418 (<0.5) ng/mL Imaging Data Extremity x-ray #1: Radiologist's Impression: [place] [id number] XRay Report Signed Patient: Sameer Joe MR#: [id number] : 1960 Acct:[id number] Age/Sex: 63 / M Date of Service: 02/16/24 Loc: ED Accession Number: [id number] Procedure: XR foot LT min 3V Ordering Provider: Wandy Silva D.O. PROCEDURE: XR FOOT LT MIN 3V INDICATIONS: wound, diabetic hx TECHNIQUE: 3 views of the foot were acquired. COMPARISON: None. FINDINGS: Bones: No fractures or dislocations. Question bone abscess in the 3rd cuneiform. A cystic lesion measures 6 mm in diameter. Soft tissues: No tibiotalar joint effusion. Achilles tendon appears normal. Dorsal soft tissue swelling. IMPRESSION: Question 3rd cuneiform bone abscess. Comment: Consider MRI with without contrast for confirmation. Dictated by: Vinny Gonzalez M.D. on 02/16/2024 at 14:00 Approved by: Vinny Gonzalez M.D. on 02/16/2024 at 14:03 [facility] Narrative Medical decision making narrative: 63-year-old male with chronic diabetic wound in the lateral calf for the past 6 weeks that has not been healing despite antibiotics. Most recent he finished a week ago amoxicillin which he states was helpful but would see stopped it recurred. He has had increasing redness and swelling and developed increasing pain in the foot and has now developed a blister over the foot itself. He is tender over the foot as well. No fevers or other septic changes appreciated. X-ray shows possible 3rd cuneiform abscess of the bone. Patient does note he did have surgery if his 3 toes in the past. But this is the location of his swelling tenderness and blister. Labs were obtained, ESR was not sent as it was currently unavailable and requires greater than 24 hours for send out. Show white count of 13 hemoglobin of 16.6 platelets of 167. Coags are negative, sodium is 133 potassium 4.7 chloride 96 CO2 of 26 BUN of 31 with a creatinine 1.31 glucose of 109 LFTs are negative, C-reactive protein is elevated at 20. Procalcitonin 0.418 MR of foot with and without contrast. Patient signed out while awaiting MR results. Patient was covered with IV antibiotics received vancomycin and cefepime. Dr Herring: Received turned over. Reviewed patient's history and physical exam. MRI does not show sign of osteomyelitis or bone abscess. Has an obvious cellulitis to his left foot. Has received antibiotics. I do feel patient would benefit from IV antibiotics. Discussed the case with Dr. Sinclair hospitalist on-call who will admit for further evaluation and treatment. Discussed the need for admission with the patient who expressed understanding and agreement as well. <Bay Herring, - Last Filed: 02/17/24 00:37> Lab Data Attestation: I reviewed the patient's lab results. Labs: Lab Results 02/16/24 Range/Units 16:51 WBC 13.0 H (4.5-11.0) X10^3/uL RBC 5.18 (4.5-5.9) X10^6/uL Hgb 16.6 (13.5-17.5) g/dL Hct 49.1 (41-53) % MCV 94.9 (80-100) fL MCH 32.1 (26-34) PG MCHC 33.8 (30-36) % RDW 13.7 (11.6-14.8) % Plt Count 167 (150-400) X10^3/uL Neut % (Auto) 86.5 H (50-75) % Lymph % (Auto) 6.1 L (25-40) % [place] % (Auto) 6.9 (3-14) % Eos % (Auto) 0.1 L (2-4) % Baso % (Auto) 0.4 (0-2) % Neut # (Auto) 87386 H (3789-3643) /uL Lymph # (Auto) 800 L (4669-5788) /uL [place] # (Auto) 900 (0-900) /uL Eos # (Auto) 0 (0-450) /uL Baso # (Auto) 0 (0-100) /uL Sodium 133 L (137-145) mmol/L Potassium 4.7 (3.4-5.1) mmol/L Chloride 96 L (98-107) mmol/L Carbon Dioxide 26 (22-32) mmol/L BUN 31 H (9-20) mg/dL Creatinine 1.31 H (0.66-1.25) mg/dL Estimated GFR > 60 (>60) mL/min BUN/Creatinine Ratio 23.7 H (6-22) Glucose 109 (80-110) mg/dL Calcium 9.9 (8.4-10.2) mg/dL Total Bilirubin 1.1 (0.2-1.3) mg/dL AST 20 (17-59) IU/L ALT 14 (<50) IU/L Alkaline Phosphatase 103 (38-126) U/L C-Reactive Protein 20.8 H (<1.0) mg/dL Total Protein 8.4 H (6.3-8.2) g/dL Albumin 4.0 (3.5-5.0) g/dL Globulin 4.4 H (1.7-4.1) g/dL Albumin/Globulin Ratio 0.9 L (1.0-2.8) Procalcitonin 0.418 (<0.5) ng/mL Imaging Data MRI foot: Radiologist's Impression: PROCEDURE: MR FOOT LT WO/W CON INDICATIONS: edema/cellulitis ? 3rd cuneiform abscess TECHNIQUE: Multiphasic, multisequence MRI of the forefoot was performed, before and after intravenous contrast administration. COMPARISON: [facility], CR, XR FOOT LT MIN 3V, 02/16/2024, 13:33. FINDINGS: Image quality: Excellent. Bones and joints: Postsurgical changes from extensor digitorum tendon fixation within anchor in the 3rd cuneiform, corresponding to the radiographic finding from earlier the same day. No abnormal osseous signal or enhancement is seen to suggest osteomyelitis. No acute trabecular bone injury or fracture. Mild scattered degenerative changes in the forefoot. Soft tissues: No enhancing soft tissue mass. Nonspecific subcutaneous edema and enhancement of the dorsum of the foot may indicate cellulitis. The extensor digitorum longus tendon appears to be intact with the surgical construct at the 3rd cuneiform. The remaining extensor tendons are intact. No acute tendon tearing identified. Mild grade 2 fatty infiltration of the foot musculature with increased T2/STIR signal. Possible focal skin ulceration at the dorsal medial aspect of the midfoot. IMPRESSION: 1. Postsurgical changes from extensor digitorum longus tendon fixation with anchor in the 3rd cuneiform, corresponding to the osseous lesion seen on radiographs from earlier the same day. The surgical construct appears intact. 2. No MR evidence of osteomyelitis. 3. Nonspecific subcutaneous edema at the dorsum of the foot may indicate cellulitis. No drainable fluid collection is seen. MDM Narrative Medical decision making narrative: 63-year-old male with chronic diabetic wound in the lateral calf for the past 6 weeks that has not been healing despite antibiotics. Most recent he finished a week ago amoxicillin which he states was helpful but would see stopped it recurred. He has had increasing redness and swelling and developed increasing pain in the foot and has now developed a blister over the foot itself. He is tender over the foot as well. No fevers or other septic changes appreciated. X-ray shows possible 3rd cuneiform abscess of the bone. Patient does note he did have surgery if his 3 toes in the past. But this is the location of his swelling tenderness and blister. Labs were obtained, ESR was not sent as it was currently unavailable and requires greater than 24 hours for send out. Show white count of 13 hemoglobin of 16.6 platelets of 167. Coags are negative, sodium is 133 potassium 4.7 chloride 96 CO2 of 26 BUN of 31 with a creatinine 1.31 glucose of 109 LFTs are negative, C-reactive protein is elevated at 20. Procalcitonin 0.418 MR of foot with and without contrast. Patient was covered with IV antibiotics received vancomycin and cefepime. Dr Herring: Received turned over. Reviewed patient's history and physical exam. MRI does not show sign of osteomyelitis or bone abscess. Has an obvious cellulitis to his left foot. Has received antibiotics. I do feel patient would benefit from IV antibiotics. Discussed the case with Dr. Sinclair hospitalist on-call who will admit for further evaluation and treatment. Discussed the need for admission with the patient who expressed understanding and agreement as well. Discharge Plan Departure Patient Disposition: Admitted As Inpatient Clinical Impression: Cellulitis, Diabetes Admit Date/Time: 02/16/24 21:00 Admit Provider: Peter Carr
--- NOTE | 2024-02-16 16:40 | DI.MRI.S_ITS ---
PROCEDURE: MR FOOT LT WO/W CON INDICATIONS: edema/cellulitis ? 3rd cuneiform abscess TECHNIQUE: Multiphasic, multisequence MRI of the forefoot was performed, before and after intravenous contrast administration. COMPARISON: [facility], CR, XR FOOT LT MIN 3V, 02/16/2024, 13:33. FINDINGS: Image quality: Excellent. Bones and joints: Postsurgical changes from extensor digitorum tendon fixation within anchor in the 3rd cuneiform, corresponding to the radiographic finding from earlier the same day. No abnormal osseous signal or enhancement is seen to suggest osteomyelitis. No acute trabecular bone injury or fracture. Mild scattered degenerative changes in the forefoot. Soft tissues: No enhancing soft tissue mass. Nonspecific subcutaneous edema and enhancement of the dorsum of the foot may indicate cellulitis. The extensor digitorum longus tendon appears to be intact with the surgical construct at the 3rd cuneiform. The remaining extensor tendons are intact. No acute tendon tearing identified. Mild grade 2 fatty infiltration of the foot musculature with increased T2/STIR signal. Possible focal skin ulceration at the dorsal medial aspect of the midfoot. IMPRESSION: 1. Postsurgical changes from extensor digitorum longus tendon fixation with anchor in the 3rd cuneiform, corresponding to the osseous lesion seen on radiographs from earlier the same day. The surgical construct appears intact. 2. No MR evidence of osteomyelitis. 3. Nonspecific subcutaneous edema at the dorsum of the foot may indicate cellulitis. No drainable fluid collection is seen. Approved by: Yamil Byers M.D. on 02/16/2024 at 19:25
--- NOTE | 2024-02-16 17:12 | PC.NURSE ---
attempted to place PIV and obtain labs, used Kurin and did collect Blood CX set #1 and all labs except Coags. Lab to collect 2nd Blood Cx and coags blue top tube.,
[2024-02-16 17:13] LABS: Add Manual Diff / Slide Review NO; Basophils Absolute Auto 0 /uL (0-100); Basophils Percent Auto 0.4 % (0-2); Eosinophils Absolute Auto 0 /uL (0-450); Eosinophils Percent Auto 0.1 % (2-4); Hematocrit 49.1 % (41-53); Hemoglobin 16.6 g/dL (13.5-17.5); Lymphocytes Absolute Auto 800 /uL (1100-4500); Lymphocytes Percent Auto 6.1 % (25-40); Mean Corpuscular HGB Conc 33.8 % (30-36); Mean Corpuscular Hemoglobin 32.1 PG (26-34); Mean Corpuscular Volume 94.9 fL (80-100); Monocytes Absolute Auto 900 /uL (0-900); Monocytes Percent Auto 6.9 % (3-14); Neutrophils Absolute Auto 11200 /uL (1500-7000); Neutrophils Percent Auto 86.5 % (50-75); Platelet Count 167 X10^3/uL (150-400); Red Blood Cell Count 5.18 X10^6/uL (4.5-5.9); Red Cell Distribution Width 13.7 % (11.6-14.8)
--- NOTE | 2024-02-16 17:24 | PC.NURSE ---
This RN attempts second IV after RN Vicki attempt. 2nd attempt was in RIGHT hand.
[2024-02-16 17:31] LABS: Alanine Aminotransferase 14 IU/L (<50); Albumin Globulin Ratio 0.9 (1.0-2.8); Alkaline Phosphatase 103 U/L (38-126); Aspartate Aminotransferase 20 IU/L (17-59); BUN Creatinine Ratio 23.7 (6-22); Bilirubin Total 1.1 mg/dL (0.2-1.3); Blood Urea Nitrogen 31 mg/dL (9-20); Calcium 9.9 mg/dL (8.4-10.2); Carbon Dioxide 26 mmol/L (22-32); Chloride 96 mmol/L (98-107); Estimated Glomerular Filt Rate > 60 mL/min (>60); Globulin 4.4 g/dL (1.7-4.1); Glucose 109 mg/dL (80-110); HEMOLYSIS 50 (0-50); Potassium 4.7 mmol/L (3.4-5.1); Sodium 133 mmol/L (137-145); Total Protein 8.4 g/dL (6.3-8.2)
[2024-02-16] MEDS: CEFEPIME 2 GM in SODIUM CHLORIDE 0.9% 100 ML IV (17:37)
[2024-02-16 17:48] LABS: Procalcitonin 0.418 ng/mL (<0.5)
--- NOTE | 2024-02-16 18:04 | PC.NURSE ---
Pt infusion of cefepime paused as reflected per MAR while patient at MRI.
[2024-02-16 18:23] LABS: C-Reactive Protein Quant 20.8 mg/dL (<1.0)
[2024-02-16] MEDS: VANCOMYCIN 2,000 MG/400 ML PIGGYBACK 200 MG IV (18:55)
[2024-02-16] MEDS: IBUPROFEN 400 MG TABLET 800 MG PO (19:04)
--- NOTE | 2024-02-16 19:24 | PC.NURSE ---
Pt taking his routine albuterol HFA 2 puffs, and flovent diskus.
--- NOTE | 2024-02-16 22:19 | PC.WOUNDPHOT ---
LLE Lateral Calf RLE lateral calf Umbilical hernia LLE medial calf LLE L foot medial BLE
[2024-02-16] MEDS: SODIUM CHLORIDE 0.9% 1,000 ML 100 ML IV (22:42)
--- NOTE | 2024-02-16 22:44 | PC.ADMIT ---
[facility]: Patient unsure of diagnoses, unsure of why some medications were stopped, unable to establish wound care locally. The patient,Sameer Joe,63 y/o, was given written information regarding hospital policies, unit procedures and contact persons. Patient's smoking status: Former smoker. Vital Signs - 8 hr 02/16/24 17:22 02/16/24 17:22 02/16/24 17:30 Pulse Rate 108 H Respiratory Rate Blood Pressure 115/82 118/77 Pulse Oximetry 96 Oxygen Delivery Method Room Air 02/16/24 17:30 02/16/24 18:00 02/16/24 18:36 Pulse Rate 81 113 H 107 H Respiratory Rate Blood Pressure Pulse Oximetry 97 97 96 Oxygen Delivery Method Room Air 02/16/24 18:38 02/16/24 18:38 02/16/24 18:39 Pulse Rate 115 H Respiratory Rate Blood Pressure 189/100 H 154/84 H Pulse Oximetry 96 Oxygen Delivery Method 02/16/24 18:39 02/16/24 19:00 02/16/24 19:00 Pulse Rate 129 H 123 H Respiratory Rate 19 21 Blood Pressure 152/94 H Pulse Oximetry 98 96 Oxygen Delivery Method 02/16/24 19:30 02/16/24 19:31 02/16/24 19:31 Pulse Rate 121 H 120 H Respiratory Rate Blood Pressure 117/86 Pulse Oximetry 96 96 Oxygen Delivery Method 02/16/24 20:00 02/16/24 20:01 02/16/24 20:01 Pulse Rate 119 H 119 H Respiratory Rate Blood Pressure 148/83 H Pulse Oximetry 95 96 Oxygen Delivery Method 02/16/24 20:30 02/16/24 20:30 02/16/24 21:00 Pulse Rate 128 H Respiratory Rate Blood Pressure 144/81 H 143/90 H Pulse Oximetry 95 Oxygen Delivery Method 02/16/24 21:00 Pulse Rate 123 H Respiratory Rate 20 Blood Pressure Pulse Oximetry 94 Oxygen Delivery Method Room Air
[2024-02-16] MEDS: ACETAMINOPHEN 325 MG TABLET 650 MG PO (23:01)
[2024-02-16] MEDS: OXYCODONE IR 5 MG TABLET PO (23:01)
[2024-02-17] VITALS (12 sets, daily range): BP systolic 108–140; BP diastolic 66–93; PULSE 77–118; RESP 16–20; TEMP 36.2–37.1; O2SAT 94–98
--- NOTE | 2024-02-17 00:07 | P.HP_ITS ---
History of Present Illness History of Present Illness Date Patient Seen: 02/16/24 Time Patient Seen: 23:00 Chief complaint: px infection in lft leg and foot Narrative: 63 y/o with PMH of CAD, DM, HTN, CHF, COPD, obesity, JULY, BPH and LLE lateral calf wound since 6 weeks ago, who presented with worsening swelling, erythema and tenderness of LLE. He was diagnosed with cellulitis and had 2 courses of abx, last one with amoxicillin. ED workup included MRI that did not show OM. Tachyarrhythmic, afebrile, with no chills, not hypotensive. Started on broad abx coverage. [facility] Medical History (Updated 02/17/24 @ 00:32 by Peter Sinclair MD) Enlarged prostate Obesity Hypertension Congestive heart failure Social History household members: family Smoking Status: Former smoker alcohol intake: former Meds Home Medications and Allergies Home Medications Medication Instructions Recorded Confirmed Type albuterol sulfate 2.5 mg/3 mL 3 ml inhalation TID 07/23/18 02/16/24 History (0.083 %) solution for nebulization carvedilol 25 mg tablet 12.5 mg PO BID 07/23/18 02/16/24 History cyclobenzaprine 10 mg tablet 10 mg PO DAILY PRN Muscle Spasm 07/23/18 02/16/24 History fluticasone propionate 100 1 puff inhalation BID 07/23/18 02/16/24 History mcg/actuation blister powder for inhalation glucosamine HCl 1,500 mg tablet 1 tab PO DAILY 07/23/18 02/16/24 History ipratropium 20 mcg-albuterol 100 1 inh inhalation QID wheezing 07/23/18 02/16/24 History mcg/actuation mist for inhalation metformin 1,000 mg tablet 1,000 mg PO BID 07/23/18 02/16/24 History spironolactone 25 mg tablet 50 mg PO DAILY 07/23/18 02/16/24 History terazosin 5 mg capsule 5 mg PO DAILY 07/23/18 02/16/24 History Allergies Allergy/AdvReac Type Severity Reaction Status Date / Time codeine [CODEINE] Allergy Unknown Hallucinati Verified 02/16/24 13:28 ng Review of Systems Constitutional Comments: wo fever or chills Cardiovascular Comments: w/o chest pain or palpitations Respiratory Comments: w/o cough, chronically short of breath Musculoskeletal Comments: swelling, tenderness - LLE Exam Vital Signs (past 8 hours): - 02/16/24 17:22 02/16/24 17:22 02/16/24 17:30 Pulse Rate 108 H Respiratory Rate Blood Pressure 115/82 118/77 Pulse Oximetry 96 Oxygen Delivery Method Room Air 02/16/24 17:30 02/16/24 18:00 02/16/24 18:36 Pulse Rate 81 113 H 107 H Respiratory Rate Blood Pressure Pulse Oximetry 97 97 96 Oxygen Delivery Method Room Air 02/16/24 18:38 02/16/24 18:38 02/16/24 18:39 Pulse Rate 115 H Respiratory Rate Blood Pressure 189/100 H 154/84 H Pulse Oximetry 96 Oxygen Delivery Method 02/16/24 18:39 02/16/24 19:00 02/16/24 19:00 Pulse Rate 129 H 123 H Respiratory Rate 19 21 Blood Pressure 152/94 H Pulse Oximetry 98 96 Oxygen Delivery Method 02/16/24 19:30 02/16/24 19:31 02/16/24 19:31 Pulse Rate 121 H 120 H Respiratory Rate Blood Pressure 117/86 Pulse Oximetry 96 96 Oxygen Delivery Method 02/16/24 20:00 02/16/24 20:01 02/16/24 20:01 Pulse Rate 119 H 119 H Respiratory Rate Blood Pressure 148/83 H Pulse Oximetry 95 96 Oxygen Delivery Method 02/16/24 20:30 02/16/24 20:30 02/16/24 21:00 Pulse Rate 128 H Respiratory Rate Blood Pressure 144/81 H 143/90 H Pulse Oximetry 95 Oxygen Delivery Method 02/16/24 21:00 02/16/24 21:20 Pulse Rate 123 H Respiratory Rate 20 Blood Pressure Pulse Oximetry 94 Oxygen Delivery Method Room Air Room Air Oxygen Delivery Method Room Air Const Other: in no distress HENMT Other: normocephalic Neck Other: supple Resp Other: nrmal respioratory effort Cardio Other: tachyarrhythmic GI Other: obese abdomen Skin Other: b/l venous stasis, LLE with several wounds, largest o e on lateral aspect, scabbed, no secretions Neuro Other: wo deficits Extrem Other: swollen LLE, tender Psych Other: lucid, approriate mood Objective Labs 02/16/24 16:51 02/16/24 16:51 Labs: Laboratory Results - last 24 hr 02/16/24 16:51 WBC 13.0 H RBC 5.18 Hgb 16.6 Hct 49.1 MCV 94.9 MCH 32.1 MCHC 33.8 RDW 13.7 Plt Count 167 Neut % (Auto) 86.5 H Lymph % (Auto) 6.1 L [place] % (Auto) 6.9 Eos % (Auto) 0.1 L Baso % (Auto) 0.4 Neut # (Auto) 28893 H Lymph # (Auto) 800 L [place] # (Auto) 900 Eos # (Auto) 0 Baso # (Auto) 0 Sodium 133 L Potassium 4.7 Chloride 96 L Carbon Dioxide 26 BUN 31 H Creatinine 1.31 H Estimated GFR > 60 BUN/Creatinine Ratio 23.7 H Glucose 109 Calcium 9.9 Total Bilirubin 1.1 AST 20 ALT 14 Alkaline Phosphatase 103 C-Reactive Protein 20.8 H Total Protein 8.4 H Albumin 4.0 Globulin 4.4 H Albumin/Globulin Ratio 0.9 L Procalcitonin 0.418 Assessment & Plan Assessment and plan (1) Left leg cellulitis: Status: Acute (2) Diabetes: Status: Acute (3) CAD (coronary artery disease): Status: Acute (4) Hypertension: Status: Acute (5) Enlarged prostate: Status: Acute (6) COPD (chronic obstructive pulmonary disease): Status: Acute (7) JULY (obstructive sleep apnea): Status: Acute (8) CKD stage 3a, GFR 45-59 ml/min: Status: Acute Assessment & Plan narrative: LLE Cellulitis - started few weeks after he initially injured left lateral calf. He failed 2 courses of POP antibiotics, last with amoxicillin - spread towards the foot w/o evidence of osteomyelitis - broad coverage with vancomycin and Cefepime NIDDM - metformin, SS, CCD CKD stage 3a - at baseline - renal dosing HTN / CAD - Hx of stent - Coreg 12.5 mg bid COPD - bronchodilators, Flovent JULY - CPAP Enlarged Prostate - Hytrin DVT prophylaxis - Lovenox Time-Based Coding :: [TOTAL MINUTES] spent with patient and on the chart (including review of chart, obtaining history, exam, reviewing outside data, placing orders, documenting exam and treatment plan, and counseling patient) on [DATE]. Quality VTE Deep Vein Thrombosis/Pulmonary Embolism Present on Admission: No
[2024-02-17] MEDS: carvediloL 12.5 MG TABLET PO ×3 (00:22→20:30)
[2024-02-17] MEDS: OXYCODONE IR 10 MG TABLET PO ×4 (03:50→20:29)
[2024-02-17] MEDS: ALBUTEROL 2.5 MG/3 ML NEB (ADULT) INH ×2 (04:00→07:04)
[2024-02-17] MEDS: CEFEPIME 1 GM in SODIUM CHLORIDE 0.9% 100 ML IV ×2 (04:43→16:33)
[2024-02-17] MEDS: VANCOMYCIN 2,000 MG/400 ML PIGGYBACK 200 MG IV (05:23)
[2024-02-17 06:07] LABS: Add Manual Diff / Slide Review NO; Basophils Absolute Auto 0 /uL (0-100); Basophils Percent Auto 0.2 % (0-2); Eosinophils Absolute Auto 100 /uL (0-450); Eosinophils Percent Auto 0.6 % (2-4); Hematocrit 44.7 % (41-53); Lymphocytes Absolute Auto 1100 /uL (1100-4500); Lymphocytes Percent Auto 10.3 % (25-40); Mean Corpuscular HGB Conc 33.6 % (30-36); Mean Corpuscular Hemoglobin 31.8 PG (26-34); Mean Corpuscular Volume 94.5 fL (80-100); Monocytes Absolute Auto 900 /uL (0-900); Monocytes Percent Auto 8.7 % (3-14); Neutrophils Absolute Auto 8200 /uL (1500-7000); Neutrophils Percent Auto 80.2 % (50-75); Platelet Count 150 X10^3/uL (150-400); Red Blood Cell Count 4.73 X10^6/uL (4.5-5.9); Red Cell Distribution Width 13.5 % (11.6-14.8); White Blood Cell Count 10.2 X10^3/uL (4.5-11.0)
[2024-02-17 06:31] LABS: BUN Creatinine Ratio 24.5 (6-22); Blood Urea Nitrogen 34 mg/dL (9-20); Calcium 9.3 mg/dL (8.4-10.2); Carbon Dioxide 22 mmol/L (22-32); Chloride 102 mmol/L (98-107); Estimated Glomerular Filt Rate 57 mL/min (>60); Glucose 120 mg/dL (80-110); HEMOLYSIS < 15 (0-50); Potassium 3.8 mmol/L (3.4-5.1); Sodium 134 mmol/L (137-145)
[2024-02-17] MEDS: BUDESONIDE 0.5 MG/2 ML NEB INH ×2 (07:04→17:57)
[2024-02-17] MEDS: TERAZOSIN 1 MG CAPSULE 5 MG PO (08:26)
[2024-02-17] MEDS: SPIRONOLACTONE 25 MG TABLET 50 MG PO (08:26)
[2024-02-17] MEDS: ENOXAPARIN 30 MG/0.3 ML SYRINGE SUBCUT (08:26)
[2024-02-17] MEDS: ACETAMINOPHEN 325 MG TABLET 650 MG PO (10:18)
[2024-02-17] MEDS: OXYCODONE IR 5 MG TABLET PO (10:18)
[2024-02-17] MEDS: SODIUM CHLORIDE 0.9% 1,000 ML 100 ML IV ×2 (10:19→20:29)
[2024-02-17] MEDS: ALBUTEROL/IPRATROPIUM 3 ML AMPUL INH ×3 (11:34→17:57)
--- NOTE | 2024-02-17 15:01 | CM.DANOTE ---
Initial DCP Assessment Visit Note Reviewed EMR and team rounds for status updates. Met with pt at bedside to introduce self and role, pt was found to be alert/oriented, eating his lunch, in good spirits. He resides in a trailer on his mother's property, provides care and assistance for her as needed. He also is employed at [employer] in [place], and states that they have been very supportive in allowing him a few weeks off for him to receive medical care. His mother will plan to come transport him back home once he's medically stable for d/c. Payor: [facility] PCP: Dr. Osorio Pt is a 63 year-old M with a hx of COPD, type II diabetes, CHF, CAD, and a non-healing wound on his left calf for the last 6-weeks., despite having had 2-courses of antibiotics. He's noted increased redness and swelling over the last week. MRI was negative for osteomyelitis in the ED. He was started on IV antibiotics and admitted to the floor for further tx. DCP will continue to monitor and assist with final d/c needs and recommendations. Discharge Planning/Care Management CM Discharge Assessment Start: 02/17/24 14:41 Freq: Status: Active Protocol: Document 02/17/24 14:41 DPL (Rec: 02/17/24 15:01 DPL [id number]) Discharge Planning Assessment Assigned Washer Engineer ALEXI Patterson Advance Directives? No History Provided By Patient,Medical Record Has Patient been admitted in last 30 No days? Prior Living Arrangements Mobile home Household Members family Type of transporation used prior to Drives own vehicle admit Independent with ADL's No: modified independent Is patient alert and oriented? Yes Caregiver for Another Yes: elderly mother Comment N/A Comment Pending final plan for antibiotics. Barriers to Discharge No Discharge Plan Home Transportation Arrangement his mother Additional Comment Pending final PT/OT recommendations Whiteboard Updated in Patient Room with Yes name and ext. # of Washer Engineer Review Status In Process Please Provide Date Initial DC 02/17/24 Assessment Was Performed
--- NOTE | 2024-02-17 15:56 | PM.CN ---
History of Present Illness Consult details Date Patient Seen: 02/17/24 Time Patient Seen: 15:30 Chief complaint: px infection in lft leg and foot Narrative: The patient is a 63-year-old male with diabetes, CAD, hypertension, CHF, and COPD who was admitted with cellulitis of the left lower extremity. The patient reports that he injured his left lower extremity about 2 months ago when he bumped against a box. He has been left with a painful open wound that recently begin draining some purulent fluid. He also began having increasing pain and erythema extending down to the dorsum of his left foot. He denies having any fever or chills. The patient failed to improve after 2 courses of outpatient oral antibiotic therapy. He was admitted to the hospital for IV antibiotic therapy for treatment of cellulitis of the left lower extremity. MRI did not show any evidence for osteomyelitis or any drainage fluid collections however he did have soft tissue swelling of the dorsum of his foot. Patient reports having an ulcer on the left lower extremity year ago that did heal after a course of antibiotics. He has no prior history of any vein disorders or DVT. He does have some chronic lower extremity swelling. Meds Home Medications and Allergies Home Medications Medication Instructions Recorded Confirmed Type albuterol sulfate 2.5 mg/3 mL 3 ml inhalation TID 07/23/18 02/16/24 History (0.083 %) solution for nebulization carvedilol 25 mg tablet 12.5 mg PO BID 07/23/18 02/16/24 History cyclobenzaprine 10 mg tablet 10 mg PO DAILY PRN Muscle Spasm 07/23/18 02/16/24 History fluticasone propionate 100 1 puff inhalation BID 07/23/18 02/16/24 History mcg/actuation blister powder for inhalation glucosamine HCl 1,500 mg tablet 1 tab PO DAILY 07/23/18 02/16/24 History ipratropium 20 mcg-albuterol 100 1 inh inhalation QID wheezing 07/23/18 02/16/24 History mcg/actuation mist for inhalation metformin 1,000 mg tablet 1,000 mg PO BID 07/23/18 02/16/24 History spironolactone 25 mg tablet 50 mg PO DAILY 07/23/18 02/16/24 History terazosin 5 mg capsule 5 mg PO DAILY 07/23/18 02/16/24 History Allergies Allergy/AdvReac Type Severity Reaction Status Date / Time codeine [CODEINE] Allergy Unknown Hallucinati Verified 02/16/24 13:28 ng Review of Systems Constitutional Comments: No recent changes in overall health except as mentioned above Cardiovascular Comments: No chest pain Respiratory Comments: Positive for cough and shortness of breath with exertion Musculoskeletal Comments: Lower extremity swelling Exam Vital Signs (past 8 hours): - 02/17/24 08:00 02/17/24 08:24 02/17/24 11:34 Temperature 97.9 F Pulse Rate 104 H 104 H 118 H Respiratory Rate 18 18 Blood Pressure 139/78 139/78 Pulse Oximetry 97 98 Oxygen Delivery Method Room Air 02/17/24 12:00 02/17/24 14:46 Temperature 97.2 F L Pulse Rate 101 H 77 Respiratory Rate 18 18 Blood Pressure 130/74 Pulse Oximetry 96 98 Oxygen Delivery Method Room Air Fraction of Inspired Oxygen 21 Oxygen Delivery Method Room Air Oxygen Flow Rate 0 Narrative Exam Narrative: Well-developed obese male who is alert and oriented, no apparent distress Resp Other: Unlabored respirations Skin Other: Hemosiderin left lower extremity, erythema dorsum of ankle and left foot with hemorrhagic bulla on the foot. There is an open wound on the lateral left lower extremity with moist necrotic eschar and purulent drainage. Mild lower extremity swelling, swelling and tenderness dorsum of left foot. Pedal pulses are palpable. Objective Labs 02/17/24 05:30 02/17/24 05:30 Labs: Laboratory Results - last 24 hr 02/16/24 02/17/24 16:51 05:30 WBC 13.0 H 10.2 RBC 5.18 4.73 Hgb 16.6 15.0 Hct 49.1 44.7 MCV 94.9 94.5 MCH 32.1 31.8 MCHC 33.8 33.6 RDW 13.7 13.5 Plt Count 167 150 Neut % (Auto) 86.5 H 80.2 H Lymph % (Auto) 6.1 L 10.3 L [place] % (Auto) 6.9 8.7 Eos % (Auto) 0.1 L 0.6 L Baso % (Auto) 0.4 0.2 Neut # (Auto) 26855 H 8200 H Lymph # (Auto) 800 L 1100 [place] # (Auto) 900 900 Eos # (Auto) 0 100 Baso # (Auto) 0 0 Sodium 133 L 134 L Potassium 4.7 3.8 Chloride 96 L 102 Carbon Dioxide 26 22 BUN 31 H 34 H Creatinine 1.31 H 1.39 H Estimated GFR > 60 57 L BUN/Creatinine Ratio 23.7 H 24.5 H Glucose 109 120 H Calcium 9.9 9.3 Total Bilirubin 1.1 AST 20 ALT 14 Alkaline Phosphatase 103 C-Reactive Protein 20.8 H Total Protein 8.4 H Albumin 4.0 Globulin 4.4 H Albumin/Globulin Ratio 0.9 L Procalcitonin 0.418 [facility] Medical History Enlarged prostate Obesity Hypertension Congestive heart failure Social History household members: family Tobacco & Substance Use Smoking Status: Former smoker alcohol intake: former Assessment & Plan Assessment and plan (1) Cellulitis: Status: Acute (2) Non-pressure chronic ulcer of other part of left lower leg with fat layer exposed: Status: Acute (3) Venous insufficiency (chronic) (peripheral): Status: Acute (4) Type 2 diabetes mellitus with other skin ulcer: Status: Acute Assessment & Plan narrative: Continue IV antibiotic therapy, start wet to wet dressing changes with Dakin's solution, will need bedside surgical debridement for removal of moist necrotic eschar lateral left lower extremity. Culture wound left lower extremity. Keep the left leg elevated. Order arterial Doppler. Follow up at wound center after discharge. Time-Based Coding :: [45 MINUTES] spent with patient and on the chart (including review of chart, obtaining history, exam, reviewing outside data, placing orders, documenting exam and treatment plan, and counseling patient) on [02/17/24].
--- NOTE | 2024-02-17 16:06 | DI.US.S_ITS ---
PROCEDURE: US ARTERIAL DUPLEX LE LT INDICATIONS: LLE ulcer TECHNIQUE: Color and pulse Doppler interrogation was performed of the left lower extremity arterial system, with image documentation. COMPARISON: None. FINDINGS: Exam is technically limited due to body habitus. Common femoral artery: 103 cm/sec, with triphasic flow. Deep femoral artery: 87 cm/sec, with triphasic flow. Proximal superficial femoral artery: 279 cm/sec, with monophasic flow. Mid superficial femoral artery: 215 cm/sec, with modified flow. Distal superficial femoral artery: 77 cm/sec, with monophasic flow. Popliteal artery: 50 cm/sec, with monophasic flow. Posterior tibial artery: 35 cm/sec, with monophasic flow. Anterior tibial artery/dorsalis pedis: 31 cm/sec, with monophasic flow. Pugh-scale imaging description: Moderate severe plaque is seen in the superficial femoral artery. IMPRESSION: Technically limited exam due to body habitus. Proximal and mid superficial femoral artery stenosis of approximately 50-99% stenosis. Approved by: Cassia Galeana M.D.,Ph.D. on 02/17/2024 at 17:27
--- NOTE | 2024-02-17 17:05 | PM.PN.1 ---
Subjective Subjective Interval history: 63 y/o with PMH of CAD, DM, HTN, CHF, COPD, obesity, JULY, BPH and LLE lateral calf wound since 6 weeks ago, who presented with worsening swelling, erythema and tenderness of LLE. He was diagnosed with cellulitis and had 2 courses of abx, last one with amoxicillin. ED workup included MRI that did not show OM. Today patient reports minimal change in swelling and pain. Exam Vital Signs (past 8 hours): - 02/17/24 11:34 02/17/24 12:00 02/17/24 14:46 Temperature 97.2 F L Pulse Rate 118 H 101 H 77 Respiratory Rate 18 18 18 Blood Pressure 130/74 Pulse Oximetry 98 96 98 Oxygen Delivery Method Room Air Room Air Fraction of Inspired Oxygen 21 Oxygen Delivery Method Room Air Oxygen Flow Rate 0 Narrative Exam Narrative: Well-developed obese male who is alert and oriented, no apparent distress Resp Other: Unlabored respirations, CTA b/l Cardio Other: RRR no m/r/g Skin Other: chronic appearing ulceration left lateral lower leg, no active drainage. Purplish appearance. Erythema of the left foot, with bullae though no active drainage currently. Objective Labs 02/17/24 05:30 02/17/24 05:30 Labs: Laboratory Results - last 24 hr 02/16/24 02/17/24 16:51 05:30 WBC 13.0 H 10.2 RBC 5.18 4.73 Hgb 16.6 15.0 Hct 49.1 44.7 MCV 94.9 94.5 MCH 32.1 31.8 MCHC 33.8 33.6 RDW 13.7 13.5 Plt Count 167 150 Neut % (Auto) 86.5 H 80.2 H Lymph % (Auto) 6.1 L 10.3 L [place] % (Auto) 6.9 8.7 Eos % (Auto) 0.1 L 0.6 L Baso % (Auto) 0.4 0.2 Neut # (Auto) 19642 H 8200 H Lymph # (Auto) 800 L 1100 [place] # (Auto) 900 900 Eos # (Auto) 0 100 Baso # (Auto) 0 0 Sodium 133 L 134 L Potassium 4.7 3.8 Chloride 96 L 102 Carbon Dioxide 26 22 BUN 31 H 34 H Creatinine 1.31 H 1.39 H Estimated GFR > 60 57 L BUN/Creatinine Ratio 23.7 H 24.5 H Glucose 109 120 H Calcium 9.9 9.3 Total Bilirubin 1.1 AST 20 ALT 14 Alkaline Phosphatase 103 C-Reactive Protein 20.8 H Total Protein 8.4 H Albumin 4.0 Globulin 4.4 H Albumin/Globulin Ratio 0.9 L Procalcitonin 0.418 [facility] Medical History Enlarged prostate Obesity Hypertension Congestive heart failure Social History household members: family Smoking Status: Former smoker alcohol intake: former Assessment & Plan Assessment & Plan narrative: LLE Cellulitis and diabetic leg ulcer - started few weeks after he initially injured left lateral calf. He failed 2 courses of outpatient antibiotics, last with amoxicillin - spread towards the foot w/o evidence of osteomyelitis on MRI - broad coverage with vancomycin and Cefepime for now, consider cultures - wound care consultation NIDDM - okay to continue metformin, with sliding scale. CKD stage 3a - at baseline - renal dosing of medications. HTN / CAD - Hx of stent, should be on at least baby aspirin, will restart - Coreg 12.5 mg bid COPD - bronchodilators, Flovent JULY - CPAP, discussed with RT whome adjusted to higher EPAP with improvement today. Enlarged Prostate - Hytrin DVT prophylaxis - Lovenox Code: full Dispo: Inpatient, likely discharge home in a couple of days pending improvement in pain, and narrow to cultures. Time-Based Coding :: [TOTAL MINUTES] spent with patient and on the chart (including review of chart, obtaining history, exam, reviewing outside data, placing orders, documenting exam and treatment plan, and counseling patient) on [DATE]. Quality VTE Deep Vein Thrombosis/Pulmonary Embolism Present on Admission: No
[2024-02-18] VITALS (11 sets, daily range): BP systolic 115–132; BP diastolic 68–93; PULSE 100–116; RESP 14–20; TEMP 36.1–36.8; O2SAT 92–96
[2024-02-18] MEDS: ALBUTEROL 2.5 MG/3 ML NEB (ADULT) INH ×2 (01:04→16:41)
[2024-02-18] MEDS: ACETAMINOPHEN 325 MG TABLET 650 MG PO ×2 (01:23→21:10)
[2024-02-18] MEDS: OXYCODONE IR 5 MG TABLET PO ×4 (01:23→21:11)
[2024-02-18] MEDS: CEFEPIME 1 GM in SODIUM CHLORIDE 0.9% 100 ML IV ×2 (04:37→17:36)
[2024-02-18] MEDS: VANCOMYCIN 2,000 MG/400 ML PIGGYBACK 200 MG IV (05:38)
[2024-02-18 06:29] LABS: Add Manual Diff / Slide Review NO; Basophils Absolute Auto 0 /uL (0-100); Basophils Percent Auto 0.3 % (0-2); Eosinophils Absolute Auto 100 /uL (0-450); Hematocrit 41.5 % (41-53); Hemoglobin 13.9 g/dL (13.5-17.5); Lymphocytes Absolute Auto 1100 /uL (1100-4500); Lymphocytes Percent Auto 16.2 % (25-40); Mean Corpuscular HGB Conc 33.5 % (30-36); Mean Corpuscular Hemoglobin 31.9 PG (26-34); Mean Corpuscular Volume 95.2 fL (80-100); Monocytes Absolute Auto 700 /uL (0-900); Monocytes Percent Auto 10.7 % (3-14); Neutrophils Absolute Auto 4800 /uL (1500-7000); Neutrophils Percent Auto 71.8 % (50-75); Platelet Count 139 X10^3/uL (150-400); Red Blood Cell Count 4.35 X10^6/uL (4.5-5.9); Red Cell Distribution Width 13.8 % (11.6-14.8); White Blood Cell Count 6.7 X10^3/uL (4.5-11.0)
[2024-02-18 06:49] LABS: BUN Creatinine Ratio 23.4 (6-22); Blood Urea Nitrogen 32 mg/dL (9-20); Carbon Dioxide 23 mmol/L (22-32); Chloride 104 mmol/L (98-107); Estimated Glomerular Filt Rate 58 mL/min (>60); Glucose 120 mg/dL (80-110); HEMOLYSIS < 15 (0-50); Potassium 4.2 mmol/L (3.4-5.1); Sodium 132 mmol/L (137-145)
[2024-02-18] MEDS: SODIUM CHLORIDE 0.9% 1,000 ML 100 ML IV (06:52)
[2024-02-18] MEDS: ALBUTEROL/IPRATROPIUM 3 ML AMPUL INH ×2 (07:35→10:50)
[2024-02-18] MEDS: BUDESONIDE 0.5 MG/2 ML NEB INH (07:35)
[2024-02-18 08:18] LABS: Hemoglobin A1C% w Est Avg Glu 6.8 % (4.0-6.0)
[2024-02-18] MEDS: carvediloL 12.5 MG TABLET PO ×2 (08:42→21:11)
[2024-02-18] MEDS: SPIRONOLACTONE 25 MG TABLET 50 MG PO (08:42)
[2024-02-18] MEDS: TERAZOSIN 1 MG CAPSULE 5 MG PO (08:42)
[2024-02-18] MEDS: ASPIRIN EC 81 MG TABLET PO (08:42)
[2024-02-18] MEDS: ENOXAPARIN 40 MG/0.4 ML SYRINGE SUBCUT (08:43)
[2024-02-18] MEDS: OXYCODONE IR 10 MG TABLET PO ×2 (09:59→13:14)
--- NOTE | 2024-02-18 12:32 | PC.NURSE ---
Pt inhalers are in pt specific nurse outside food server, labeled by pharmacy for use
[2024-02-18] MEDS: ALBUTEROL INH ×2 (15:00→21:00)
[2024-02-18] MEDS: IPRATROPIUM INH ×2 (15:00→21:00)
--- NOTE | 2024-02-18 15:23 | P.OP_ITS ---
Operative Date/Time/Diagnoses Date of procedure: 02/18/24 Time of procedure: 12:00 Procedure & Clinicians Procedure: Sharp excisional debridement of necrotic ulcer left lower extremity (93022) Same procedure as scheduled: Yes Indications: The patient is a 63-year-old male with a 3.5 x 2.5 cm necrotic infected ulcer lateral left lower extremity associated with cellulitis and venous insuffi ciency. Bedside surgical debridement was recommended. The patient appeared to understand and agreed to proceed. Surgeon: Sravan Camacho Anesthesia Type: Other (Topical lidocaine) Operative Notes Findings: Necrotic eschar and nonviable subcutaneous tissue with active infection Estimated Blood Loss (mL): 1 Procedure in detail: Procedure was performed at the bedside. Topical lidocaine was applied to the ulcer. The ulcer was then debrided using a number 5 Curette. The necrotic eschar and necrotic subcutaneous tissue was sharply excised. The patient tolerated the procedure with minimal discomfort. Wound was irrigated with saline then dressed with Iodoflex. The patient tolerated procedure well without complications. Post debridement wound measurements were 3.5 x 2.5 cm. Post-operative Condition: stable
--- NOTE | 2024-02-18 18:23 | PM.PN.1 ---
Subjective Subjective Interval history: 63 y/o with PMH of CAD, DM, HTN, CHF, COPD, obesity, JULY, BPH and LLE lateral calf wound since 6 weeks ago, who presented with worsening swelling, erythema and tenderness of LLE. He was diagnosed with cellulitis and had 2 courses of abx, last one with amoxicillin. ED workup included MRI that did not show OM. Today patient reports slight improvement in pain. Wound care provider did debridement at bedside today, cultured drainage from foot yesterday. Exam Vital Signs (past 8 hours): - 02/18/24 10:50 02/18/24 12:00 02/18/24 16:00 Temperature 97.8 F 97.9 F Pulse Rate 100 H 105 H 107 H Respiratory Rate 18 18 18 Blood Pressure 120/89 132/81 Pulse Oximetry 94 96 96 Oxygen Delivery Method Room Air Oxygen Flow Rate 0 0 0 Fraction of Inspired Oxygen 21 02/18/24 16:42 Temperature Pulse Rate 111 H Respiratory Rate 20 Blood Pressure Pulse Oximetry 94 Oxygen Delivery Method Room Air Oxygen Flow Rate Fraction of Inspired Oxygen Fraction of Inspired Oxygen 21 SaO2/FiO2 Ratio 447 Oxygen Delivery Method Room Air Oxygen Flow Rate 0 Narrative Exam Narrative: Well-developed obese male who is alert and oriented, no apparent distress Resp Other: Unlabored respirations, CTA b/l Cardio Other: RRR no m/r/g Skin Other: chronic appearing ulceration left lateral lower leg, no active drainage. Purplish appearance. Erythema of the left foot, with bullae though no active drainage currently. Objective Labs 02/18/24 05:57 02/18/24 05:57 Labs: Laboratory Results - last 24 hr 02/18/24 05:57 WBC 6.7 RBC 4.35 L Hgb 13.9 Hct 41.5 MCV 95.2 MCH 31.9 MCHC 33.5 RDW 13.8 Plt Count 139 L Neut % (Auto) 71.8 Lymph % (Auto) 16.2 L [place] % (Auto) 10.7 Eos % (Auto) 1.0 L Baso % (Auto) 0.3 Neut # (Auto) 4800 Lymph # (Auto) 1100 [place] # (Auto) 700 Eos # (Auto) 100 Baso # (Auto) 0 Sodium 132 L Potassium 4.2 Chloride 104 Carbon Dioxide 23 BUN 32 H Creatinine 1.37 H Estimated GFR 58 L BUN/Creatinine Ratio 23.4 H Glucose 120 H Hemoglobin A1c 6.8 H Calcium 9.0 PFSH Medical History Enlarged prostate Obesity Hypertension Congestive heart failure Social History household members: family Smoking Status: Former smoker alcohol intake: former Assessment & Plan Assessment & Plan narrative: LLE Cellulitis and diabetic leg ulcer - started few weeks after he initially injured left lateral calf. He failed 2 courses of outpatient antibiotics, last with amoxicillin - spread towards the foot w/o evidence of osteomyelitis on MRI - broad coverage with vancomycin and Cefepime for now, cultures sent, narrow once available - wound care consultation appreciated. did debridment at bedside today NIDDM - okay to continue metformin, with sliding scale. CKD stage 3a - at baseline - renal dosing of medications. HTN / CAD - Hx of stent, should be on at least baby aspirin, will restart - Coreg 12.5 mg bid COPD - bronchodilators, Flovent JULY - CPAP, discussed with RT whome adjusted to higher EPAP with improvement Enlarged Prostate - Hytrin DVT prophylaxis - Lovenox Code: full Dispo: Inpatient, likely discharge home in a couple of days pending improvement in pain, and narrow based on sent cultures. Time-Based Coding :: [TOTAL MINUTES] spent with patient and on the chart (including review of chart, obtaining history, exam, reviewing outside data, placing orders, documenting exam and treatment plan, and counseling patient) on [DATE]. Quality VTE Deep Vein Thrombosis/Pulmonary Embolism Present on Admission: No
[2024-02-18] MEDS: FLUTICASONE PROPIONATE 100 MCG 1 EACH INH (21:00)
[2024-02-19] VITALS (9 sets, daily range): BP systolic 115–130; BP diastolic 71–105; PULSE 40–110; RESP 14–96; TEMP 36.2–37.6; O2SAT 90–96
[2024-02-19] MEDS: OXYCODONE IR 5 MG TABLET PO ×3 (02:57→22:31)
[2024-02-19] MEDS: CEFEPIME 1 GM in SODIUM CHLORIDE 0.9% 100 ML IV ×2 (05:03→17:55)
[2024-02-19] MEDS: CYCLOBENZAPRINE 10 MG TABLET PO (05:03)
[2024-02-19 06:02] LABS: Add Manual Diff / Slide Review NO; Basophils Absolute Auto 0 /uL (0-100); Basophils Percent Auto 0.5 % (0-2); Eosinophils Absolute Auto 100 /uL (0-450); Eosinophils Percent Auto 1.5 % (2-4); Hematocrit 40.6 % (41-53); Hemoglobin 13.5 g/dL (13.5-17.5); Lymphocytes Absolute Auto 900 /uL (1100-4500); Lymphocytes Percent Auto 16.5 % (25-40); Mean Corpuscular HGB Conc 33.2 % (30-36); Mean Corpuscular Hemoglobin 31.6 PG (26-34); Mean Corpuscular Volume 95.2 fL (80-100); Monocytes Absolute Auto 500 /uL (0-900); Monocytes Percent Auto 9.9 % (3-14); Neutrophils Absolute Auto 3900 /uL (1500-7000); Neutrophils Percent Auto 71.6 % (50-75); Platelet Count 128 X10^3/uL (150-400); Red Blood Cell Count 4.27 X10^6/uL (4.5-5.9); Red Cell Distribution Width 13.6 % (11.6-14.8); White Blood Cell Count 5.5 X10^3/uL (4.5-11.0)
[2024-02-19 06:14] LABS: Blood Urea Nitrogen 28 mg/dL (9-20); Calcium 9.1 mg/dL (8.4-10.2); Carbon Dioxide 23 mmol/L (22-32); Chloride 105 mmol/L (98-107); Estimated Glomerular Filt Rate 56 mL/min (>60); Glucose 132 mg/dL (80-110); HEMOLYSIS < 15 (0-50); Potassium 4.4 mmol/L (3.4-5.1); Sodium 133 mmol/L (137-145)
[2024-02-19 06:19] LABS: Vancomycin Trough 11.1 ug/mL (10-20)
[2024-02-19] MEDS: OXYCODONE IR 10 MG TABLET PO ×3 (06:24→14:54)
[2024-02-19] MEDS: VANCOMYCIN 2,000 MG/400 ML PIGGYBACK 200 MG IV (06:26)
[2024-02-19] MEDS: ALBUTEROL INH ×4 (07:00→21:37)
[2024-02-19] MEDS: IPRATROPIUM INH ×4 (07:00→21:37)
[2024-02-19] MEDS: TERAZOSIN 1 MG CAPSULE 5 MG PO (09:20)
[2024-02-19] MEDS: SPIRONOLACTONE 25 MG TABLET 50 MG PO (09:23)
[2024-02-19] MEDS: FLUTICASONE PROPIONATE 100 MCG 1 EACH INH ×2 (09:25→21:37)
[2024-02-19] MEDS: ASPIRIN EC 81 MG TABLET PO (09:27)
[2024-02-19] MEDS: ENOXAPARIN 40 MG/0.4 ML SYRINGE SUBCUT (09:27)
[2024-02-19] MEDS: carvediloL 12.5 MG TABLET PO ×2 (09:27→21:41)
[2024-02-19] MEDS: ACETAMINOPHEN 325 MG TABLET 650 MG PO ×2 (09:30→14:54)
--- NOTE | 2024-02-19 12:19 | PM.PN.1 ---
Subjective Subjective Interval history: Summary: 63 M with diabetes admitted with a R foot cellulitis. Imaging negative for osteo including MRI. Wound care came by and did a culture of some bullae, can discharge with PO antibiotics once cultures result. Will follow up in wound care. S: He is doing well today. The leg is improving. It was still swollen and red. He had 1 debridement. Cultures are pending. He is constipated. Exam Vital Signs (past 8 hours): - 02/19/24 08:00 02/19/24 12:00 Temperature 98.3 F 97.2 F L Pulse Rate 40 L 110 H Respiratory Rate 18 Blood Pressure 130/105 H 115/77 Pulse Oximetry 96 91 Oxygen Flow Rate 0 0 Fraction of Inspired Oxygen 21 SaO2/FiO2 Ratio 447 Oxygen Delivery Method Room Air Oxygen Flow Rate 0 Narrative Exam Narrative: NAD, alert and oriented. Fluent speech. Lungs are clear, normal rate and effort. Heart is regular, no murmur gallop or rub. Abdomen is soft, non distended. Extremities: The right foot is swollen and red. There is a water blister which is black. He does have good cap refill. The mid tibia region is wrapped. Objective Labs 02/19/24 05:35 02/19/24 05:35 Labs: Laboratory Results - last 24 hr 02/19/24 05:35 WBC 5.5 RBC 4.27 L Hgb 13.5 Hct 40.6 L MCV 95.2 MCH 31.6 MCHC 33.2 RDW 13.6 Plt Count 128 L Neut % (Auto) 71.6 Lymph % (Auto) 16.5 L [place] % (Auto) 9.9 Eos % (Auto) 1.5 L Baso % (Auto) 0.5 Neut # (Auto) 3900 Lymph # (Auto) 900 L [place] # (Auto) 500 Eos # (Auto) 100 Baso # (Auto) 0 Sodium 133 L Potassium 4.4 Chloride 105 Carbon Dioxide 23 BUN 28 H Creatinine 1.40 H Estimated GFR 56 L BUN/Creatinine Ratio 20.0 Glucose 132 H Calcium 9.1 Vancomycin Trough 11.1 PFSH Medical History Enlarged prostate Obesity Hypertension Congestive heart failure Social History household members: family Smoking Status: Former smoker alcohol intake: former Assessment & Plan Assessment & Plan narrative: LLE Cellulitis and diabetic leg ulcer, present on admission and improving. - started few weeks after he initially injured left lateral calf. He failed 2 courses of outpatient antibiotics, last with amoxicillin - spread towards the foot w/o evidence of osteomyelitis on MRI - broad coverage with vancomycin and Cefepime for now, cultures sent, narrow once available - wound care consultation appreciated. did debridment at bedside today NIDDM, stable - okay to continue metformin, with sliding scale. CKD stage 3a, stable - at baseline - renal dosing of medications. HTN / CAD, stable - Hx of stent, should be on at least baby aspirin, will restart - Coreg 12.5 mg bid COPD, stable - bronchodilators, Flovent JULY, stable - CPAP, discussed with RT whome adjusted to higher EPAP with improvement Enlarged Prostate, stable - Hytrin DVT prophylaxis - Lovenox PLAN: -continue antibiotics and leg elevation -await cultures -nares MRSA screen WAGNER: February 19. Home. Time-Based Coding :: [TOTAL MINUTES] spent with patient and on the chart (including review of chart, obtaining history, exam, reviewing outside data, placing orders, documenting exam and treatment plan, and counseling patient) on [DATE]. Quality VTE Deep Vein Thrombosis/Pulmonary Embolism Present on Admission: No
[2024-02-19 12:59] LABS: MRSA (Nasal) PCR NOT DETECTED (Not Detect)
--- NOTE | 2024-02-19 13:10 | CM.DPC ---
DCP Continued: Reviewed EMR and team rounds for pt?s medical status. Per rounds, pt awaiting cultures and will continue broad spectrum abx in the meantime. DCP spoke with [facility] clinic and spoke with Tiara, who agreed to schedule outpatient follow up with patient at discharge. Per CM assessment, Pt has declined home health referral; no other discharge needs identified at this time. Plan: Anticipating home with mother to transport on 02/19 or when medically stable, follow up with wound clinic. CM Team will continue to follow for coordination of discharge plans. THADDEUS Elliott
--- NOTE | 2024-02-19 14:35 | DIET.CONS ---
Dietary Consultation Note Admission Date: 02/16/2024 21:00 Assessment: 63 y M admitted for cellulitis and non-pressure chronic ulcer. RD consulted for obesity - non-compliant with diet. Pt with PMH of CKD3a, COPD, and DM2 (NIDDM). A1c was 6.8% on 02/18/24. 100% PO intakes, DFM reviewed. Met w/ pt at bedside. Reports usually following low carb diet. Doesn't regularly check BG, doesn't have meter. Reports 3 days of little PO intakes, only having a sandwich. Notes he lost 30 lb within 2 weeks. Currently has normal appetite. Declines further MNT for nutrition and diabetes management. Reports he is aware and has resources he needs regarding this topic. NFPE performed with no significant results. Assessed- temples, deltoid, clavicle region, buccal and orbital fat pads. Ht: 190.5 cm Wt: 137 kg BMI: 37.7 UBW: Per pt 150 kg 2 weeks ago (-8.7% weight loss within 1 month, severe) Last BM: 02/14/24 (02/16/24 21:37) MNA: 11 Kameron Score: 19 Diet: 02/17/24 Breakfast Heart Healthy Diet Diet Modifications: Nutrition Percent Meal Consumed 95 02/19/24 13:00 Percent Meal Consumed 100% 02/19/24 09:00 Percent Meal Consumed 100% 02/18/24 18:00 Percent Meal Consumed 100% 02/18/24 16:26 Percent Meal Consumed 100% 02/17/24 18:31 Percent Meal Consumed 100% 02/17/24 18:00 Labs: RBC 4.27 X10^6/uL (4.5-5.9) L 02/19/24 05:35 Hgb 13.5 g/dL (13.5-17.5) 02/19/24 05:35 Hct 40.6 % (41-53) L 02/19/24 05:35 Creatinine 1.40 mg/dL (0.66-1.25) H 02/19/24 05:35 Hemoglobin A1c 6.8 % (4.0-6.0) H 02/18/24 05:57 Nutrition Diagnosis: Unintentional weight loss r/t decrease PO intakes aeb 8.7% weight loss within 1 month, severe Interventions: 1. Provided nutrition educ for wound healing - noted CKD3a Monitoring/Evaluations: will continue to monitor po intakes Electronically Signed by: Raquel Rae 02/19/24 14:35 Clinical Dietitian [address] [address]
[2024-02-19] MEDS: ALBUTEROL 2.5 MG/3 ML NEB (ADULT) INH (14:52)
--- NOTE | 2024-02-19 15:59 | DI.RAD.S_ITS ---
PROCEDURE: XR CHEST 1V INDICATIONS: dyspnea TECHNIQUE: One view of the chest was acquired. COMPARISON: CT, CT ANGIO CHEST PE PROTOCOL, 07/23/2018, 10:48. FINDINGS: Poor inspiratory effort. Surgical changes and devices: None. Lungs and pleura: Lungs are clear. No pleural effusions or pneumothorax. Mediastinum: Mediastinal contours appear normal. Heart size is enlarged.. Bones and chest wall: No suspicious bony lesions. Overlying soft tissues appear unremarkable. IMPRESSION: Poor inspiratory effort with cardiomegaly. Minimal effusions or bibasilar atelectasis cannot be definitively excluded. Dictated by: Purnima Parada M.D. on 02/19/2024 at 16:52 Approved by: Purnima Parada M.D. on 02/19/2024 at 16:52
--- NOTE | 2024-02-19 19:48 | PC.NURSE ---
Metabolic/Skin: Pt doesn't want to take his diabetes meds. MD Larson made aware he is not taking his metformin or insulin. His blood glucose fairly good control with a A1c of 6.8. Pt has 2 blisters on his foot. Blister #1 broke open today. made aware and he can still be full weight bearing. Non adhesive foam with gauze and then coban to keep it in place. The blister is black and his toes are purplish blue. Leg wound dressing changed. He has drainage of yellow fluid and dressing had to be soaked off, leg cleanzed with saline. Pt thinks the leg and foot are improving but its slow. Leg wound was dressed with non adhesive foam, kerlix and coban to keep it in place. Dressing change is painful, he reports his skin is super sensative.
[2024-02-20] MEDS: OXYCODONE IR 5 MG TABLET PO ×3 (02:47→20:51)
[2024-02-20 03:00] VITALS: BP 128/89; PULSE 102; RESP 20; TEMP 35.9; O2SAT 91
[2024-02-20] MEDS: CEFEPIME 1 GM in SODIUM CHLORIDE 0.9% 100 ML IV (05:15)
[2024-02-20] MEDS: VANCOMYCIN 2,000 MG/400 ML PIGGYBACK 200 MG IV (06:37)
[2024-02-20 07:00] VITALS: BP 110/69; PULSE 88; RESP 20; TEMP 35.7; O2SAT 92
[2024-02-20 07:20] LABS: Add Manual Diff / Slide Review NO; Basophils Absolute Auto 100 /uL (0-100); Eosinophils Absolute Auto 100 /uL (0-450); Eosinophils Percent Auto 2.3 % (2-4); Hematocrit 39.5 % (41-53); Hemoglobin 13.3 g/dL (13.5-17.5); Lymphocytes Absolute Auto 900 /uL (1100-4500); Mean Corpuscular HGB Conc 33.6 % (30-36); Mean Corpuscular Hemoglobin 31.7 PG (26-34); Mean Corpuscular Volume 94.3 fL (80-100); Monocytes Absolute Auto 700 /uL (0-900); Monocytes Percent Auto 11.8 % (3-14); Neutrophils Absolute Auto 3800 /uL (1500-7000); Neutrophils Percent Auto 67.9 % (50-75); Platelet Count 137 X10^3/uL (150-400); Red Blood Cell Count 4.19 X10^6/uL (4.5-5.9); Red Cell Distribution Width 13.6 % (11.6-14.8); White Blood Cell Count 5.6 X10^3/uL (4.5-11.0)
[2024-02-20 07:27] LABS: BUN Creatinine Ratio 20.3 (6-22); Blood Urea Nitrogen 25 mg/dL (9-20); Calcium 9.2 mg/dL (8.4-10.2); Carbon Dioxide 24 mmol/L (22-32); Chloride 104 mmol/L (98-107); Estimated Glomerular Filt Rate > 60 mL/min (>60); Glucose 133 mg/dL (80-110); HEMOLYSIS < 15 (0-50); Potassium 4.6 mmol/L (3.4-5.1); Sodium 132 mmol/L (137-145)
[2024-02-20] MEDS: ASPIRIN EC 81 MG TABLET PO (07:56)
[2024-02-20] MEDS: SPIRONOLACTONE 25 MG TABLET 50 MG PO (07:56)
[2024-02-20] MEDS: TERAZOSIN 1 MG CAPSULE 5 MG PO (07:57)
[2024-02-20] MEDS: carvediloL 12.5 MG TABLET PO ×2 (07:57→20:50)
[2024-02-20] MEDS: ENOXAPARIN 40 MG/0.4 ML SYRINGE SUBCUT (07:57)
[2024-02-20] MEDS: IPRATROPIUM INH ×4 (07:58→20:50)
[2024-02-20] MEDS: ALBUTEROL INH ×4 (07:58→20:50)
--- NOTE | 2024-02-20 08:05 | P.PN_ITS ---
Subjective Subjective Interval history: Summary: 63 M with diabetes admitted with a R foot cellulitis. Imaging negative for osteo including MRI. Wound care came by and did a culture of some bullae, can discharge with PO antibiotics once cultures result. Will follow up in wound care. S: He feels better and would like to go home. His cultures have finalized and levofloxacin orally would work fine. Really has not been on a bed much, nurse request physical therapy assessment. This was completed in the patient did poorly. Exam Vital Signs (past 8 hours): - 02/20/24 03:00 02/20/24 07:00 Temperature 96.7 F L 96.3 F L Pulse Rate 102 H 88 Respiratory Rate 20 20 Blood Pressure 128/89 110/69 Pulse Oximetry 91 92 Oxygen Flow Rate 0 Fraction of Inspired Oxygen 21 SaO2/FiO2 Ratio 447 Oxygen Delivery Method Room Air,CPAP Oxygen Flow Rate 0 Narrative Exam Narrative: NAD, alert and oriented. Fluent speech. Lungs are clear, normal rate and effort. Heart is regular, no murmur gallop or rub. Abdomen is soft, non distended. Extremities are free of edema. Right foot is swollen and less red. There is a ruptured blister on the dorsal aspect. The mid tibia region of the lower leg is also wrapped. Objective Labs 02/20/24 06:40 02/20/24 06:40 Labs: Laboratory Results - last 24 hr 02/19/24 02/20/24 11:28 06:40 WBC 5.6 RBC 4.19 L Hgb 13.3 L Hct 39.5 L MCV 94.3 MCH 31.7 MCHC 33.6 RDW 13.6 Plt Count 137 L Neut % (Auto) 67.9 Lymph % (Auto) 17.0 L [place] % (Auto) 11.8 Eos % (Auto) 2.3 Baso % (Auto) 1.0 Neut # (Auto) 3800 Lymph # (Auto) 900 L [place] # (Auto) 700 Eos # (Auto) 100 Baso # (Auto) 100 Sodium 132 L Potassium 4.6 Chloride 104 Carbon Dioxide 24 BUN 25 H Creatinine 1.23 Estimated GFR > 60 BUN/Creatinine Ratio 20.3 Glucose 133 H Calcium 9.2 Nasal Screen MRSA (PCR) Not detected [facility] Medical History Enlarged prostate Obesity Hypertension Congestive heart failure Social History household members: family Smoking Status: Former smoker alcohol intake: former Assessment & Plan Assessment & Plan narrative: LLE Cellulitis and diabetic leg ulcer, present on admission and improving. - started few weeks after he initially injured left lateral calf. He failed 2 courses of outpatient antibiotics, last with amoxicillin - spread towards the foot w/o evidence of osteomyelitis on MRI - broad coverage with vancomycin and Cefepime for now, cultures sent, narrow once available - wound care consultation appreciated. did debridment at bedside today NIDDM, stable - okay to continue metformin, with sliding scale. CKD stage 3a, stable - at baseline - renal dosing of medications. HTN / CAD, stable - Hx of stent, should be on at least baby aspirin, will restart - Coreg 12.5 mg bid COPD, stable - bronchodilators, Flovent JULY, stable - CPAP, discussed with RT whome adjusted to higher EPAP with improvement Enlarged Prostate, stable - Hytrin PLAN: -continue antibiotics and leg elevation. Stop IV antibiotics and start levofloxacin orally today. -delay discharge and reassess with physical therapy tomorrow. He may need a rehabilitation transition. -monitor glucose. WAGNER is February 20, destination home versus care home facility depending on his performance with physical therapy. DVT prophylaxis - Lovenox Time-Based Coding :: [TOTAL MINUTES] spent with patient and on the chart (including review of chart, obtaining history, exam, reviewing outside data, placing orders, documenting exam and treatment plan, and counseling patient) on [DATE]. Quality VTE Deep Vein Thrombosis/Pulmonary Embolism Present on Admission: No
[2024-02-20] MEDS: FLUTICASONE PROPIONATE 100 MCG 1 EACH INH ×2 (09:00→20:51)
[2024-02-20 11:00] VITALS: BP 121/84; PULSE 84; RESP 19; TEMP 36.2; O2SAT 92
[2024-02-20] MEDS: OXYCODONE IR 10 MG TABLET PO ×2 (13:25→17:22)
--- NOTE | 2024-02-20 14:15 | PT.IIE ---
Current Diagnoses Type 2 diabetes mellitus with other skin ulcer (02/16/24) Type 2 diabetes mellitus without complications (02/16/24) Obstructive sleep apnea (adult) (pediatric) (02/16/24) Essential (primary) hypertension (02/16/24) Atherosclerotic heart disease of [place] coronary artery without angina pectoris (02/16/24) Venous insufficiency (chronic) (peripheral) (02/16/24) Chronic obstructive pulmonary disease, unspecified (02/16/24) Cellulitis of left lower limb (02/16/24) Cellulitis, unspecified (02/16/24) Non-pressure chronic ulcer of other part of left lower leg with fat layer exposed (02/16/24) Non-pressure chronic ulcer of skin of other sites with unspecified severity (02/16/24) Chronic kidney disease, stage 3a (02/16/24) Benign prostatic hyperplasia without lower urinary tract symptoms (02/16/24) Medical History (Last Reviewed 02/19/24 @ 12:25 by Jarvis Larson MD) Congestive heart failure Enlarged prostate Hypertension Obesity Physical Therapy Inpatient Evaluation/Re-Eval M1 PT/OT-IP Prior Functional Status Start: 02/20/24 16:34 Freq: NEEDED Status: Active Protocol: Document 02/20/24 14:15 AB (Rec: 02/20/24 16:49 AB [id number]) Medical Review Prior Functional Status Medical History Reviewed Yes Communication able to make needs known Mobility and Gait pt stated that he was modified independent with all mobilities and ambulation using B axillary crutches Social History Household Members none Living Arrangements Mobile home Number of Floors (Floors) One Floor Number of Stairs To Enter/Railing? 3 steps R rail to enter Home Environment Standard Height Toilet,Tub/ Shower Home Equipment Crutches Additional Social History Comment pt lives alone but has his mother, sister other family that lives around the same property where his mobile home is M2 PT-IP Current Condition Start: 02/20/24 16:34 Freq: NEEDED Status: Active Protocol: Document 02/20/24 14:15 AB (Rec: 02/20/24 16:49 AB [id number]) Physical Therapy Current Condition Current Condition Evaluation Date 02/20/24 Treatment Diagnosis LLE cellulitis; difficulty in walking Onset Date 02/16/24 M3 PT-IP Subjective Start: 02/20/24 16:34 Freq: NEEDED Status: Active Protocol: Document 02/20/24 14:15 AB (Rec: 02/20/24 16:49 AB [id number]) Subjective Physical Therapy Visit Type Type Initial Evaluation Visit Start Time 14:15 Visit Stop Time 14:55 Number of ROOFING CONTRACTOR Visits 0 Physical Therapy Visit Comments Patient Comments agreeable to do PT Therapy Pain Assessment Pain When Pain Assessed At Rest Pain Present Pain Present Pain Reported Location Left foot Intensity 4 Scale Used Numeric (0 - 10) Pain Management Techniques Distraction,Modification of Treatment,Re-positioning, Timing of Activity with Medications M4 PT-IP Mobility and Gait Start: 02/20/24 16:34 Freq: NEEDED Status: Active Protocol: Document 02/20/24 14:15 AB (Rec: 02/20/24 16:49 [id number]) PT-Bed Mobility Assessment Supine to Sit Supine to Sit Standby Assistance Sit to Supine Sit to Supine Standby Assistance PT-Transfer Assessment Sit to and From Stand Sit to and from Stand Contact Guard Assistance,1 Person Assistance,Use of Upper Extremities Equipment Transfer Assistive Device Gait Belt,Axillary Crutches Orthotic/Prosthetic Devices or Brace: No Comments Mobility Comments pt supine in bed and agreeable to do PT. obtained PLOF and home set up. pt completeds upine to sit SBA. able to sit on EOB SBA. no c/o dizziness. c/o increase LLE pain. completed sit to stand CGA and ambulated using axillary crutches CGA ~ 20 ft towards platform step. upon reaching the step, pt stated that he is feeling dizzy and wants to get back to his room. pt ambulated back to EOB using crutches CGA. BP checked: 155 /90. refused to do stairs. pt stated that he has not been up since admission and today is the first time getting up and he feels he is not ready to go home. pt completed sit to supine SBA. positioned pt in bed. call light and table placed within reach. informed nurse regarding pt's mobility and c/o dizziness. Gait Assessment Gait Gait Assistance Required: Contact Guard Assist Distance (Feet) 20 Able to Maintain Weight Bearing Status Yes During Gait Assistive Devices Assistive Device Gait Belt,Axillary Crutches Orthotic/Prosthetic Devices or Brace: No Gait Deviations General Gait Pattern Decreased Stride Length, Decreased Feet Clearance Factors Limiting Gait Function Factors Limiting Gait Function Decreased Activity Tolerance, Decreased Strength,Limited Range of Motion,Pain,Poor Balance,Poor Safety Awareness PT-Balance Assessment Sitting Balance and Reactions Static Sitting Balance Ability Normal Dynamic Sitting Balance Ability Good Standing Balance and Reactions Static Standing Balance Ability Fair Dynamic Standing Balance Ability Fair Device Used crutches M5 PT-IP Objective Assessments Start: 02/20/24 16:34 Freq: NEEDED Status: Active Protocol: Document 02/20/24 14:15 AB (Rec: 02/20/24 16:49 AB [id number]) Orientation Orientation/Cognition Level of Alertness Alert Orientation Name,Place,Situation Language Function Ability No Deficits Noted Safety Awareness Understands Safety Issues Memory Description No Deficits Noted Gross Range of Motion Lower Extremity ROM Assessment Left Impaired Impairments pain affecting ROM on ankle Strength Lower Extremity Strength Assessment Left Impaired Ankle 3+/5 Muscle Tone Muscle Tone WNL Yes M6 PT-IP Treatment Start: 02/20/24 16:34 Freq: NEEDED Status: Active Protocol: Document 02/20/24 14:15 AB (Rec: 02/20/24 16:49 AB [id number]) Physical Therapy Treatment Education Education Provided Weight Bearing Status,Safety M7 PT-IP Assessment and Plan Start: 02/20/24 16:34 Freq: NEEDED Status: Active Protocol: Document 02/20/24 14:15 AB (Rec: 02/20/24 16:49 AB [id number]) PT Summary Assessment and Plan Potential Rehabilitation Potential Fair Status of Condition at Evaluation Evolving Summary Impairments Pain,ROM,Strength,Balance, Coordination,Sensation,Tone, Cognition,Bed Mobility, Transfers,Gait,Activity Tolerance Assessment Summary pt is a 63 y/o M who is admitted for LLE cellulitis. pt is WBAT on LLE. pt requiring CGA for ambulation using crutches but unable to tolerate much activity due to c/o dizziness. pt lives alone but has family living close to his home and can assist if needed. will continue to assess progress. Goals Bed Mobility Goal Independent Transfer Goal Independent,Crutches Gait Goal Independent,Crutches Gait Distance 150 Other Goals up/down 3 steps R rail + crutches SBA Days to Meet Goals 10 Frequency of Treatment Frequency Of Treatment Once a Day Treatment Plan Physical Therapy Treatment Plan Bed Mobility Training,Transfer Training,Gait Training, Therapeutic Exercise,Balance Retraining,Discharge Planning, Hot or Cold Pack,Neuromuscular Re-ed,Coordination Retraining Weight Bearing Status Weight Bearing Status Weight Bear as Tolerated Allowed Weight Bearing Amount (enter % LLE WBAT or #) (%) Recommendations To Nursing Amount of Assist Needed 1 Person Assist Discharge Recommendations PT Discharge Recommendations Home with Assistance,Home Health Transportation Needs at Discharge Private Vehicle
[2024-02-20 16:00] VITALS: BP 124/80; PULSE 94; RESP 21; TEMP 37; O2SAT 92
[2024-02-20] MEDS: levoFLOXacin 250 MG TABLET 750 MG PO (17:21)
[2024-02-20 20:00] VITALS: BP 131/98; PULSE 100; RESP 18; TEMP 36.6; O2SAT 92
--- NOTE | 2024-02-20 20:01 | PC.NURSE ---
Mobility?wound: Pt seen by PT. He has not amb since he has been here. Offered many times and refused. Pt reported he would get up for dinner. Dr. Larson in to see pt and explained of importance of getting up and moving. When dinner finally came he refused to get up. Pt -> There isn't anyone as big as me to help me if I fell down. I'm not getting up. Pt admanent about refusal to get up. Pointed out the lift system and the ability to notify others to help if needed. Pt -> I can't do it. I'm not sure if I'm ready to go home tomorrow. Pt voiced a few concerns about not wanting to lose his foot (amp) and if he would really get into wound clinic like he needs to be. Dressing changed to lt lower extremity. Less yellowish drainage from calf wound. Foot wound blister has partially opened with sero-sang fluid. Blister on top of foot remains black. Blister #2 has changed from white to black. Both sites dressed with non adhes. foam, kerlis wrap and over wrapped with coban. Otherwise foot has improved. The toes are no longer purplish blue. cap refill is more brisk. He has been unable to move his toes for a long time. he has a pulse.
[2024-02-20 20:50] VITALS: BP 131/98; PULSE 94
[2024-02-20] MEDS: ACETAMINOPHEN 325 MG TABLET 650 MG PO (20:51)
[2024-02-21] VITALS (7 sets, daily range): BP systolic 121–141; BP diastolic 70–104; PULSE 69–86; RESP 16–18; TEMP 36.4–37.1; O2SAT 92–95
[2024-02-21] MEDS: OXYCODONE IR 5 MG TABLET PO ×3 (03:22→13:42)
[2024-02-21] MEDS: ACETAMINOPHEN 325 MG TABLET 650 MG PO (03:23)
[2024-02-21] MEDS: FLUTICASONE PROPIONATE 100 MCG 1 EACH INH ×2 (07:41→20:03)
[2024-02-21] MEDS: ALBUTEROL INH ×4 (07:41→20:03)
[2024-02-21] MEDS: IPRATROPIUM INH ×4 (07:41→20:03)
[2024-02-21] MEDS: TERAZOSIN 1 MG CAPSULE 5 MG PO (07:50)
[2024-02-21] MEDS: carvediloL 12.5 MG TABLET PO ×2 (07:50→20:02)
[2024-02-21] MEDS: ENOXAPARIN 40 MG/0.4 ML SYRINGE SUBCUT (07:51)
[2024-02-21] MEDS: SPIRONOLACTONE 25 MG TABLET 50 MG PO (07:52)
[2024-02-21] MEDS: ASPIRIN EC 81 MG TABLET PO (07:52)
--- NOTE | 2024-02-21 11:35 | PT.IPTN ---
Current Diagnoses Type 2 diabetes mellitus with other skin ulcer (02/16/24) Type 2 diabetes mellitus without complications (02/16/24) Obstructive sleep apnea (adult) (pediatric) (02/16/24) Essential (primary) hypertension (02/16/24) Atherosclerotic heart disease of [place] coronary artery without angina pectoris (02/16/24) Venous insufficiency (chronic) (peripheral) (02/16/24) Chronic obstructive pulmonary disease, unspecified (02/16/24) Cellulitis of left lower limb (02/16/24) Cellulitis, unspecified (02/16/24) Non-pressure chronic ulcer of other part of left lower leg with fat layer exposed (02/16/24) Non-pressure chronic ulcer of skin of other sites with unspecified severity (02/16/24) Chronic kidney disease, stage 3a (02/16/24) Benign prostatic hyperplasia without lower urinary tract symptoms (02/16/24) Physical Therapy Treatment Note M2 PT-IP Current Condition Start: 02/20/24 16:34 Freq: NEEDED Status: Active Protocol: Document 02/20/24 14:15 AB (Rec: 02/20/24 16:49 AB [id number]) Physical Therapy Current Condition Current Condition Evaluation Date 02/20/24 Treatment Diagnosis LLE cellulitis; difficulty in walking Onset Date 02/16/24 M3 PT-IP Subjective Start: 02/20/24 16:34 Freq: NEEDED Status: Active Protocol: Document 02/21/24 11:12 KS (Rec: 02/21/24 12:28 KS [id number]) Subjective Physical Therapy Visit Type Type Treatment Note Visit Start Time 11:12 Visit Stop Time 11:35 Number of OPTICAL ASSISTANT Visits 1 Physical Therapy Visit Comments Patient Comments agreeable to do PT Therapy Pain Assessment Pain When Pain Assessed At Rest Pain Present Pain Present Pain Reported M4 PT-IP Mobility and Gait Start: 02/20/24 16:34 Freq: NEEDED Status: Active Protocol: Document 02/21/24 11:12 KS (Rec: 02/21/24 12:28 KS [id number]) PT-Bed Mobility Assessment Supine to Sit Supine to Sit Standby Assistance Sit to Supine Sit to Supine Standby Assistance Scooting Scooting to Edge of Bed Standby Assistance PT-Transfer Assessment Sit to and From Stand Sit to and from Stand Contact Guard Assistance,1 Person Assistance,Use of Upper Extremities Equipment Transfer Assistive Device Gait Belt,Axillary Crutches Orthotic/Prosthetic Devices or Brace: No Transfers Transfer Destination Chair Transfer Technique ambulated Transfer Ability Level of Assist Contact Guard Assistance,1 Person Assistance,Use of Upper Extremities Comments Mobility Comments Pt in bed upon arrival and agreeable to do stair training . SBA for bed mobility. CGA for sit<>Stand w/ axillary crutches. PT ambulated w/ crutches to step and was able to ascend/descend 1 platform step w/ crutches and CGA. Pt w / labored breathing and ambulated to chair to sit. Pt left in chair w/ all needs in reach. Gait Assessment Gait Gait Assistance Required: Contact Guard Assist,1 Person Assist Distance (Feet) 20 Able to Maintain Weight Bearing Status Yes During Gait Assistive Devices Assistive Device Gait Belt,Axillary Crutches Orthotic/Prosthetic Devices or Brace: No Gait Deviations General Gait Pattern Decreased Stride Length, Decreased Feet Clearance Factors Limiting Gait Function Factors Limiting Gait Function Decreased Activity Tolerance, Decreased Strength,Limited Range of Motion,Pain,Poor Balance,Poor Safety Awareness Comments Gait Comments Pt ambulates w/ crutches in his own way, hard to redirect . Stair Climbing Assessment Evaluation Level of Assist On Stairs Contact Guard Assistance,1 Person Assistance Devices Stair Climbing Assistive Devices Axillary Crutches Technique/Endurance Stair Climbing Direction Ascend and Descend Stair Climbing Technique Step to Step Number of Steps Climbed 1 Stair Climbing Set # Repetitions (reps) 1 Comments Stair Climbing Comments Pt ascends/descends step in opposite order than recommended up with the good, down with the bad due to histoy of performing this way and was able to complete safely. He also descends slightly sideways. Pt states he can do stairs at home. Does not agree to further practice at this time. PT-Balance Assessment Sitting Balance and Reactions Static Sitting Balance Ability Normal Dynamic Sitting Balance Ability Good Standing Balance and Reactions Static Standing Balance Ability Fair Dynamic Standing Balance Ability Fair Device Used crutches M5 PT-IP Objective Assessments Start: 02/20/24 16:34 Freq: NEEDED Status: Active Protocol: Document 02/20/24 14:15 AB (Rec: 02/20/24 16:49 AB [id number]) Orientation Orientation/Cognition Level of Alertness Alert Orientation Name,Place,Situation Language Function Ability No Deficits Noted Safety Awareness Understands Safety Issues Memory Description No Deficits Noted Gross Range of Motion Lower Extremity ROM Assessment Left Impaired Impairments pain affecting ROM on ankle Strength Lower Extremity Strength Assessment Left Impaired Ankle 3+/5 Muscle Tone Muscle Tone WNL Yes M6 PT-IP Treatment Start: 02/20/24 16:34 Freq: NEEDED Status: Active Protocol: Document 02/21/24 11:12 KS (Rec: 02/21/24 12:28 KS [id number]) Physical Therapy Treatment Education Education Provided Weight Bearing Status,Safety M7 PT-IP Assessment and Plan Start: 02/20/24 16:34 Freq: NEEDED Status: Active Protocol: Document 02/21/24 11:12 KS (Rec: 02/21/24 12:28 KS [id number]) PT Summary Assessment and Plan Potential Rehabilitation Potential Fair Summary Impairments Pain,ROM,Strength,Balance, Coordination,Sensation,Tone, Cognition,Bed Mobility, Transfers,Gait,Activity Tolerance Progress Towards Goals Progressing Toward Goals Assessment Summary Pt able to completed platform step w/ CGA today and axiallary crutches, SBA for bed mobiltiy and CGA for sit<> Stand. Pt is familiar with using crutches and feels he can complete 3 steps going into home. He will likely need some assistance at home which he states he has. Goals Bed Mobility Goal Independent Transfer Goal Independent,Crutches Gait Goal Independent,Crutches Gait Distance 150 Other Goals up/down 3 steps R rail + crutches SBA Days to Meet Goals 10 Frequency of Treatment Frequency Of Treatment Once a Day Treatment Plan Physical Therapy Treatment Plan Bed Mobility Training,Transfer Training,Gait Training, Therapeutic Exercise,Balance Retraining,Discharge Planning, Hot or Cold Pack,Neuromuscular Re-ed,Coordination Retraining Other Recommendations and Next Treatment complete 3 steps. Focus Weight Bearing Status Weight Bearing Status Weight Bear as Tolerated Allowed Weight Bearing Amount (enter % LLE WBAT or #) (%) Recommendations To Nursing Amount of Assist Needed 1 Person Assist Discharge Recommendations PT Discharge Recommendations Home with Assistance,Home Health Transportation Needs at Discharge Private Vehicle
--- NOTE | 2024-02-21 13:01 | P.PN_ITS ---
Subjective Subjective Interval history: His weakness has improved since yesterday. He did fairly well with PT but still is a bit weak given his multiple stairs for entry. His wounds are improving. He is less short of breath and coughing up less. He was sitting up in the chair today. Exam Vital Signs (past 8 hours): - 02/21/24 07:50 02/21/24 08:01 02/21/24 11:21 Temperature 97.6 F Pulse Rate 69 69 Respiratory Rate 18 Blood Pressure 128/97 H 128/97 H Pulse Oximetry 92 Oxygen Delivery Method Room Air CPAP Fraction of Inspired Oxygen 21 SaO2/FiO2 Ratio 447 Oxygen Delivery Method Room Air,CPAP Oxygen Flow Rate 0 Narrative Exam Narrative: NAD, alert and oriented. Fluent speech. Lungs are clear, normal rate and effort. Heart is regular, no murmur gallop or rub. Abdomen is soft, non distended. Extremities are free of edema. Left leg is wrapped. Less edema and redness. Objective Labs 02/20/24 06:40 02/20/24 06:40 [facility] Medical History Enlarged prostate Obesity Hypertension Congestive heart failure Social History household members: none Smoking Status: Former smoker alcohol intake: former Assessment & Plan Assessment & Plan narrative: LLE Cellulitis and diabetic leg ulcer, present on admission and improving. - started few weeks after he initially injured left lateral calf. He failed 2 courses of outpatient antibiotics, last with amoxicillin - spread towards the foot w/o evidence of osteomyelitis on MRI - wound care consultation appreciated. did debridment at bedside today NIDDM, stable - okay to continue metformin, with sliding scale. CKD stage 3a, stable - at baseline - renal dosing of medications. HTN / CAD, stable - Hx of stent, should be on at least baby aspirin, will restart - Coreg 12.5 mg bid COPD, stable - bronchodilators, Flovent JULY, stable - CPAP, discussed with RT whome adjusted to higher EPAP with improvement Enlarged Prostate, stable - Hytrin PLAN: Weakness is improving, yet still unstable. We will wait 1 additional night for improvement of gait and safety of transfer home given his multiple steps to get in. He was comorbid conditions and await increases risk of a fall and injury. We will also arrange for home health. Stopped IV antibiotics February 19 and now on levofloxacin. Continue wound care, we will use home health for this as well. We will also arrange ultimately for a wound care visit outpatient. WAG[place] is February 21. Time-Based Coding :: [TOTAL MINUTES] spent with patient and on the chart (including review of chart, obtaining history, exam, reviewing outside data, placing orders, documenting exam and treatment plan, and counseling patient) on [DATE]. Quality VTE Deep Vein Thrombosis/Pulmonary Embolism Present on Admission: No
[2024-02-21] MEDS: levoFLOXacin 250 MG TABLET 750 MG PO (13:42)
[2024-02-21] MEDS: OXYCODONE IR 10 MG TABLET PO (20:02)
[2024-02-22] MEDS: OXYCODONE IR 5 MG TABLET PO ×4 (01:30→12:07)
[2024-02-22 04:00] VITALS: BP 124/93; PULSE 44; TEMP 35.6; O2SAT 94
[2024-02-22] MEDS: ALBUTEROL INH (06:30)
[2024-02-22] MEDS: IPRATROPIUM INH (06:30)
[2024-02-22 08:00] VITALS: BP 128/81; PULSE 91; RESP 17; TEMP 36.8; O2SAT 94
[2024-02-22 08:21] VITALS: BP 128/81; PULSE 91
[2024-02-22] MEDS: ASPIRIN EC 81 MG TABLET PO (08:21)
[2024-02-22] MEDS: carvediloL 12.5 MG TABLET PO (08:21)
[2024-02-22] MEDS: SPIRONOLACTONE 25 MG TABLET 50 MG PO (08:21)
[2024-02-22] MEDS: TERAZOSIN 1 MG CAPSULE 5 MG PO (08:21)
[2024-02-22] MEDS: ENOXAPARIN 40 MG/0.4 ML SYRINGE SUBCUT (08:21)
[2024-02-22] MEDS: FLUTICASONE PROPIONATE 100 MCG 1 EACH INH (08:27)
[2024-02-22] MEDS: ACETAMINOPHEN 325 MG TABLET 650 MG PO (08:30)
--- NOTE | 2024-02-22 10:47 | PM.DS.1 ---
History of Present Illness History of Present Illness Chief complaint: px infection in lft leg and foot Narrative: 63 y/o with PMH of CAD, DM, HTN, CHF, COPD, obesity, JULY, BPH and LLE lateral calf wound since 6 weeks ago, who presented with worsening swelling, erythema and tenderness of LLE. He was diagnosed with cellulitis and had 2 courses of abx, last one with amoxicillin. ED workup included MRI that did not show OM. Tachyarrhythmic, afebrile, with no chills, not hypotensive. Started on broad abx coverage. Discharge Providers Provider Date of admission: 02/16/24 21:00 Discharge Date: 02/22/24 Primary care physician: Dayne Osorio MD Consults: 02/16/24 21:45 Consult to Dietitian, Adult Routine Comment: Reason For Exam: obesity, non compliant with diet 02/16/24 22:46 Consult to Wound Care Routine Comment: Consulting Provider: Yahaira- Wound Care 02/20/24 12:37 Consult to Physical Therapy Evaluate & Treat Comment: Physician Instructions: Evaluate and Treat Discharge provider: Jarvis Larson MD Summary Hospital Course Discharge Diagnosis: 1. LLE Cellulitis and diabetic leg ulcer, present on admission and improving. - started few weeks after he initially injured left lateral calf. He failed 2 courses of outpatient antibiotics, last with amoxicillin - spread towards the foot w/o evidence of osteomyelitis on MRI 2. NIDDM, stable - okay to continue metformin, with sliding scale. 3. CKD stage 3a, stable - at baseline - renal dosing of medications. 4. HTN / CAD, stable - Hx of stent, should be on at least baby aspirin, will restart - Coreg 12.5 mg bid 5. COPD, stable - bronchodilators, Flovent 6. JULY, stable - CPAP, discussed with RT whome adjusted to higher EPAP with improvement 7. Enlarged Prostate, stable - Hytrin 8. Obesity class 2, stable. Hospital Course: Patient was a 63-year-old male with multiple comorbid conditions including CAD, diabetes, heart failure, obesity, and JULY. He presented with a left lateral calf wound that has been present for 6 weeks and had developed swelling and erythema. In the emergency department he was started on IV antibiotics after failing 2 outpatient courses of antibiotics. An MRI was obtained negative for evidence of fasciitis or osteomyelitis. The patient was seen by wound care with the wound care plan. He was also debrided on February 17. The patient did well with antibiotics and ultimately he grew out Providencia rettgeri. He was switched to oral levofloxacin 2 days prior to discharge. He did have a fair amount of weakness and worked with physical therapy last several days of his admission and ultimately proved himself to be capable of discharge home. He will call wound care and set up an appointment with wound care this week. He will continue antibiotics for an additional 10 days. Status at Discharge Cognitive/behavioral status at discharge: oriented Functional status at discharge: independent ambulation Overall status at discharge: patient is back to baseline Time Spent with Patient Time spent: Greater than 30 minutes Exam Vital Signs (past 8 hours): - 02/22/24 04:00 02/22/24 08:00 02/22/24 08:21 Temperature 96.0 F L 98.3 F Pulse Rate 44 L 91 H 91 H Respiratory Rate 17 Blood Pressure 124/93 H 128/81 128/81 Pulse Oximetry 94 94 Oxygen Flow Rate 0 Fraction of Inspired Oxygen 21 SaO2/FiO2 Ratio 447 Oxygen Delivery Method Room Air Oxygen Flow Rate 0 Narrative Exam Narrative: NAD, alert and oriented. Fluent speech. Lungs are clear, normal rate and effort. Heart is regular, no murmur gallop or rub. Abdomen is soft, non distended. Extremities are free of edema. Left lower leg is wrapped and the skin above and below is mildly swollen but not red. Objective Imaging Multiple studies:: Radiologist's impression: Chest x-ray: Poor inspiratory effort with cardiomegaly. Minimal effusions or bibasilar atelectasis cannot be definitively excluded. Leg ultrasound: Exam is technically limited due to body habitus. Common femoral artery: 103 cm/sec, with triphasic flow. Deep femoral artery: 87 cm/sec, with triphasic flow. Proximal superficial femoral artery: 279 cm/sec, with monophasic flow. Mid superficial femoral artery: 215 cm/sec, with modified flow. Distal superficial femoral artery: 77 cm/sec, with monophasic flow. Popliteal artery: 50 cm/sec, with monophasic flow. Posterior tibial artery: 35 cm/sec, with monophasic flow. Anterior tibial artery/dorsalis pedis: 31 cm/sec, with monophasic flow. Pugh-scale imaging description: Moderate severe plaque is seen in the superficial femoral artery. IMPRESSION: Technically limited exam due to body habitus. Proximal and mid superficial femoral artery stenosis of approximately 50-99% stenosis. Foot MRI: 1. Postsurgical changes from extensor digitorum longus tendon fixation with anchor in the 3rd cuneiform, corresponding to the osseous lesion seen on radiographs from earlier the same day. The surgical construct appears intact. 2. No MR evidence of osteomyelitis. 3. Nonspecific subcutaneous edema at the dorsum of the foot may indicate cellulitis. No drainable fluid collection is seen. Labs 02/20/24 06:40 02/20/24 06:40 [facility] Medical History Enlarged prostate Obesity Hypertension Congestive heart failure Social History household members: none Smoking Status: Former smoker alcohol intake: former Discharge Assessment & Plan Assessment and Plan Assessment: 1. LLE Cellulitis and diabetic leg ulcer, present on admission and improving. Plan of Treatment: Discharge home, wound care this week, leg elevation, complete 10 additional days of antibiotics. Discharge Plan Discharge Plan Patient Disposition: Home Provider Discharge Comment: Stable for discharge home on oral antibiotics, he will call wound care at his schedule as a 1st appointment for the next several days. He will keep the wound and dressing clean and dry until his 1st appointment. Discharge orders & Medications Prescriptions: New carvedilol 12.5 mg Tablet 12.5 mg PO BID Qty: 60 0RF levofloxacin 250 mg Tablet 750 mg PO Q24H Qty: 10 0RF aspirin 81 mg Tablet,Delayed Release (Dr/Ec) 81 mg PO DAILY Qty: 30 0RF spironolactone 25 mg Tablet 50 mg PO DAILY Qty: 30 0RF oxycodone 5 mg Tablet 5 mg PO Q3H PRN (Reason: Pain, Moderate (4-6)) Qty: 20 0RF Continued terazosin 5 mg capsule 5 mg PO DAILY ipratropium-albuterol 20-100 mcg/actuation mist 1 inh Inhalation QID albuterol sulfate 2.5 mg /3 mL (0.083 %) solution for nebulization 3 ml Inhalation TID fluticasone propionate 100 mcg/actuation blister with device 1 puff Inhalation BID glucosamine HCl 1,500 mg Tablet 1 tab PO DAILY cyclobenzaprine 10 mg Tablet 10 mg PO DAILY PRN (Reason: Muscle Spasm) Discontinued carvedilol 25 mg tablet 12.5 mg PO BID Patient Comments: not filled since June spironolactone 25 mg tablet 50 mg PO DAILY Follow up/Referrals: Sravan Camacho MD [Physician] - Dayne Osorio MD [Primary Care Provider] - Diet/Activity/Treatments Diet: Regular Activity: As tolerated. Keep dressing dry, elevate leg as much as possible. Skin/Wound/Dressing Care Report to your healthcare provider any signs of infection, such as:: chills, fever, increased pain, unusual drainage and unusual redness Visit Report/Discharge Packet Instructions: DI for Cellulitis -- Adult, Oxycodone, Levofloxacin Stand Alone Forms: Patient Portal/API Discharge Data Primary Care Provider: Dayne Osorio Quality VTE Deep Vein Thrombosis/Pulmonary Embolism Present on Admission: No
[2024-02-22 12:00] VITALS: BP 124/96; PULSE 78; RESP 18; TEMP 36.3; O2SAT 95
--- NOTE | 2024-02-22 13:05 | CM.DPC ---
DCP Discharge Home Per MD, pt medically stable to d/c home today on PO meds and with outpt wound clinic follow up and MD did not feel HH needed at this time. SW met bedside with pt and explained role and pt confirms he feels stronger and ready to discharge home today and his mother is on her way in to provide transport home today. RN will do dressing change on his wound prior to d/c and pt states he has Wound MD Dr. Doug garcia from when he consulted bedside a couple days ago and pt's preference is outpt Wound Clinic at [facility] and plans to call later today to confirm he is on their schedule. 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 SW called [facility] and spoke to Olivia and alerted them to pt's discharge today and they had already left pt a msg to schedule and SW transferred Olivia into pt's room phone to discuss further. Plan: patient to d/c home today via mother POV and outpt f/u with [facility] and no further SW needs at this time. ALEXI Hui
[2024-02-22] MEDS: levoFLOXacin 250 MG TABLET 750 MG PO (14:19)
--- NOTE | 2024-02-22 14:37 | PC.NURSE ---
Patient is A&OX4, VSS, afebrile on RA. He reports pain to LLE is well controlled with prn 5 mg oxycodone and tylenol. He is evaluated by MD at bedside and cleared for discharge home today on oral antibiotics. Dressing to L LE changed per orders. He is also scheduled for follow up appointment with WoundCare clinic on Thursday and he acknowledges understanding of site care, follow up, medications, and s/sx of worsening infection. He is escorted by [employer] with all of his personal belongings including crutches via w/ch to private vehicle for discharge home today at 1420 this afternoon.
== END 2024-02-22 14:20 | disposition home or self-care (01) | DRG 623 ==
LOC: ED 20:51 → AC 21:01
PROVIDERS: Emergency Medicine; Hospitalist; Internal Medicine; Admitting Provider Internal Medicine; Emergency Provider Emergency Medicine; PCP Internal Medicine; Referring Provider Emergency Medicine; Visit Provider Internal Medicine
DX: E11.622 Type 2 diabetes mellitus with other skin ulcer (principal); E11.52 Type 2 diabetes mellitus with diabetic peripheral angiopathy with gangrene; L03.116 Cellulitis of left lower limb; L97.222 Non-pressure chronic ulcer of left calf with fat layer exposed; I96 Gangrene, not elsewhere classified; I13.0 Hypertensive heart and chronic kidney disease with heart failure and stage 1 through stage 4 chronic kidney disease, or unspecified chronic kidney disease; E11.22 Type 2 diabetes mellitus with diabetic chronic kidney disease; N18.31 Chronic kidney disease, stage 3a; I25.10 Atherosclerotic heart disease of native coronary artery without angina pectoris; N40.0 Benign prostatic hyperplasia without lower urinary tract symptoms; J44.9 Chronic obstructive pulmonary disease, unspecified; G47.33 Obstructive sleep apnea (adult) (pediatric); I87.2 Venous insufficiency (chronic) (peripheral); E66.812 Obesity, class 2; I50.9 Heart failure, unspecified; B96.89 Other specified bacterial agents as the cause of diseases classified elsewhere; Z87.891 Personal history of nicotine dependence; Z79.84 Long term (current) use of oral hypoglycemic drugs; Z68.37 Body mass index [BMI] 37.0-37.9, adult
CPT/HCPCS: 36415; 71045; 73630; 73720; 80048; 80053; 80202; 82962; 83036; 84145; 85025; 86140; 87040; 87070; 87075; 87077; 87147; 87186; 87205; 87797; 93926; 94640; 94660; 96365; 96366; 96367; 97116; 97162; 97530; 99233; 99284; 99285; A9579; J0692; J1650; J7613

== ENCOUNTER → 2024-02-24 08:11 | Outpatient (CLI) | payer OTHER, SELFPAY ==
[2024-02-16 21:37] VITALS: BMI 37.7
== END ==
PROVIDERS: PCP Internal Medicine; Referring Provider Surgery; Visit Provider Surgery
DX: L97.522 Non-pressure chronic ulcer of other part of left foot with fat layer exposed (principal); L98.8 Other specified disorders of the skin and subcutaneous tissue; S81.801A Unspecified open wound, right lower leg, initial encounter; S81.802A Unspecified open wound, left lower leg, initial encounter; L03.116 Cellulitis of left lower limb; I73.9 Peripheral vascular disease, unspecified; I87.2 Venous insufficiency (chronic) (peripheral); E11.628 Type 2 diabetes mellitus with other skin complications; R60.0 Localized edema; I50.9 Heart failure, unspecified; I25.10 Atherosclerotic heart disease of native coronary artery without angina pectoris
CPT/HCPCS: 11042; 11045; 99213; 99214

== ENCOUNTER → 2024-02-25 13:23 | Outpatient (CLI) | payer OTHER, SELFPAY ==
[2024-02-16 21:37] VITALS: BMI 37.7
== END ==
PROVIDERS: PCP Internal Medicine; Referring Provider Surgery; Visit Provider Surgery
DX: L97.522 Non-pressure chronic ulcer of other part of left foot with fat layer exposed (principal); L03.116 Cellulitis of left lower limb; L98.8 Other specified disorders of the skin and subcutaneous tissue
CPT/HCPCS: 99213

== ENCOUNTER → 2024-02-26 11:17 | Outpatient (CLI) | payer OTHER, SELFPAY ==
[2024-02-16 21:37] VITALS: BMI 37.7
== END ==
PROVIDERS: PCP Internal Medicine; Referring Provider Surgery; Visit Provider Physician Assistant
DX: L03.116 Cellulitis of left lower limb (principal); L03.115 Cellulitis of right lower limb; L98.8 Other specified disorders of the skin and subcutaneous tissue
CPT/HCPCS: 99214

== ENCOUNTER → 2024-02-29 10:24 | Outpatient (CLI) | payer OTHER, SELFPAY ==
[2024-02-16 21:37] VITALS: BMI 37.7
== END ==
PROVIDERS: PCP Internal Medicine; Referring Provider Surgery; Visit Provider Surgery
DX: L03.116 Cellulitis of left lower limb (principal); L97.822 Non-pressure chronic ulcer of other part of left lower leg with fat layer exposed; L97.522 Non-pressure chronic ulcer of other part of left foot with fat layer exposed; I87.2 Venous insufficiency (chronic) (peripheral); E11.628 Type 2 diabetes mellitus with other skin complications; I73.9 Peripheral vascular disease, unspecified
CPT/HCPCS: 11042; 11045; 87070; 87075; 87205; 99213

== ENCOUNTER → 2024-03-01 14:16 | Outpatient (CLI) | payer OTHER, SELFPAY ==
[2024-02-16 21:37] VITALS: BMI 37.7
== END ==
PROVIDERS: PCP Internal Medicine; Referring Provider Internal Medicine; Visit Provider Surgery
DX: L97.822 Non-pressure chronic ulcer of other part of left lower leg with fat layer exposed (principal); L97.812 Non-pressure chronic ulcer of other part of right lower leg with fat layer exposed; L03.116 Cellulitis of left lower limb; L03.115 Cellulitis of right lower limb
CPT/HCPCS: 99213

== ENCOUNTER → 2024-03-02 13:11 | Outpatient (CLI) | payer OTHER, SELFPAY ==
[2024-02-16 21:37] VITALS: BMI 37.7
== END ==
PROVIDERS: PCP Internal Medicine; Referring Provider Internal Medicine; Visit Provider Surgery
DX: L97.522 Non-pressure chronic ulcer of other part of left foot with fat layer exposed (principal); L03.116 Cellulitis of left lower limb; S81.801A Unspecified open wound, right lower leg, initial encounter; L98.8 Other specified disorders of the skin and subcutaneous tissue; S81.802A Unspecified open wound, left lower leg, initial encounter; I87.2 Venous insufficiency (chronic) (peripheral); I73.9 Peripheral vascular disease, unspecified; Z79.2 Long term (current) use of antibiotics
CPT/HCPCS: 11042; 11045

== ENCOUNTER → 2024-03-03 11:55 | Outpatient (CLI) | payer OTHER, SELFPAY ==
[2024-02-16 21:37] VITALS: BMI 37.7
== END ==
PROVIDERS: PCP Internal Medicine; Referring Provider Surgery; Visit Provider Surgery
DX: L03.115 Cellulitis of right lower limb (principal); L03.116 Cellulitis of left lower limb; R60.0 Localized edema; L97.822 Non-pressure chronic ulcer of other part of left lower leg with fat layer exposed; L97.522 Non-pressure chronic ulcer of other part of left foot with fat layer exposed; L97.812 Non-pressure chronic ulcer of other part of right lower leg with fat layer exposed
CPT/HCPCS: 99213

== ENCOUNTER → 2024-03-04 10:36 | Outpatient (CLI) | payer OTHER, SELFPAY ==
[2024-02-16 21:37] VITALS: BMI 37.7
== END ==
LOC: WC 10:36
PROVIDERS: PCP Internal Medicine; Referring Provider Surgery; Visit Provider Physician Assistant
DX: L03.115 Cellulitis of right lower limb (principal); L03.116 Cellulitis of left lower limb; R60.0 Localized edema
CPT/HCPCS: 99213

== ENCOUNTER → 2024-03-07 10:26 | Outpatient (CLI) | payer OTHER, SELFPAY ==
[2024-02-16 21:37] VITALS: BMI 37.7
== END ==
PROVIDERS: PCP Internal Medicine; Referring Provider Surgery; Visit Provider Surgery
DX: L03.116 Cellulitis of left lower limb (principal); L03.115 Cellulitis of right lower limb; L97.822 Non-pressure chronic ulcer of other part of left lower leg with fat layer exposed; L97.522 Non-pressure chronic ulcer of other part of left foot with fat layer exposed; L97.812 Non-pressure chronic ulcer of other part of right lower leg with fat layer exposed; R60.0 Localized edema
CPT/HCPCS: 99214

== ENCOUNTER → 2024-03-09 10:54 | Outpatient (CLI) | payer OTHER, SELFPAY ==
[2024-02-16 21:37] VITALS: BMI 37.7
== END ==
PROVIDERS: PCP Internal Medicine; Referring Provider Surgery; Visit Provider Physician Assistant
DX: E11.628 Type 2 diabetes mellitus with other skin complications (principal); L98.8 Other specified disorders of the skin and subcutaneous tissue; S81.802A Unspecified open wound, left lower leg, initial encounter; S81.801A Unspecified open wound, right lower leg, initial encounter; E11.621 Type 2 diabetes mellitus with foot ulcer; L97.522 Non-pressure chronic ulcer of other part of left foot with fat layer exposed; L03.116 Cellulitis of left lower limb; R60.0 Localized edema; I87.2 Venous insufficiency (chronic) (peripheral)
CPT/HCPCS: 11042; 11045

== ENCOUNTER → 2024-03-14 15:36 | Outpatient (CLI) | payer OTHER, SELFPAY ==
[2024-02-16 21:37] VITALS: BMI 37.7
== END ==
PROVIDERS: PCP Internal Medicine; Referring Provider Surgery; Visit Provider Surgery
DX: L03.115 Cellulitis of right lower limb (principal); L03.116 Cellulitis of left lower limb; L98.8 Other specified disorders of the skin and subcutaneous tissue; S81.802A Unspecified open wound, left lower leg, initial encounter; S81.801A Unspecified open wound, right lower leg, initial encounter; S91.302A Unspecified open wound, left foot, initial encounter
CPT/HCPCS: 97605

== ENCOUNTER → 2024-03-17 14:07 | Outpatient (CLI) | payer OTHER, SELFPAY ==
[2024-02-16 21:37] VITALS: BMI 37.7
== END ==
PROVIDERS: PCP Internal Medicine; Referring Provider Surgery; Visit Provider Surgery
DX: L97.522 Non-pressure chronic ulcer of other part of left foot with fat layer exposed (principal); L98.8 Other specified disorders of the skin and subcutaneous tissue; S81.802A Unspecified open wound, left lower leg, initial encounter; R60.0 Localized edema; I73.9 Peripheral vascular disease, unspecified; I87.2 Venous insufficiency (chronic) (peripheral); E11.621 Type 2 diabetes mellitus with foot ulcer
CPT/HCPCS: 11042; 11045; 97605

== ENCOUNTER → 2024-03-22 14:11 | Outpatient (CLI) | payer OTHER, SELFPAY ==
[2024-02-16 21:37] VITALS: BMI 37.7
== END ==
PROVIDERS: PCP Internal Medicine; Referring Provider Surgery; Visit Provider Surgery
DX: L98.8 Other specified disorders of the skin and subcutaneous tissue (principal); S81.802A Unspecified open wound, left lower leg, initial encounter; E11.621 Type 2 diabetes mellitus with foot ulcer; L97.522 Non-pressure chronic ulcer of other part of left foot with fat layer exposed; I73.9 Peripheral vascular disease, unspecified; I87.2 Venous insufficiency (chronic) (peripheral); R60.0 Localized edema; I25.10 Atherosclerotic heart disease of native coronary artery without angina pectoris; I50.9 Heart failure, unspecified; Z79.2 Long term (current) use of antibiotics; L03.115 Cellulitis of right lower limb
CPT/HCPCS: 11042; 11045; 87070; 87077; 87147; 87186; 87205; 99213

== ENCOUNTER → 2024-03-24 14:20 | Outpatient (CLI) | payer OTHER, SELFPAY ==
[2024-02-16 21:37] VITALS: BMI 37.7
== END ==
LOC: WC 14:27
PROVIDERS: PCP Internal Medicine; Referring Provider Surgery; Visit Provider Surgery
DX: L98.8 Other specified disorders of the skin and subcutaneous tissue (principal); S81.802A Unspecified open wound, left lower leg, initial encounter; S91.302A Unspecified open wound, left foot, initial encounter; R60.0 Localized edema
CPT/HCPCS: 97605

== ENCOUNTER → 2024-03-28 14:05 | Outpatient (CLI) | payer OTHER, SELFPAY ==
[2024-02-16 21:37] VITALS: BMI 37.7
== END ==
LOC: WC 14:11
PROVIDERS: PCP Internal Medicine; Referring Provider Surgery; Visit Provider Surgery
DX: S81.802A Unspecified open wound, left lower leg, initial encounter (principal); L98.8 Other specified disorders of the skin and subcutaneous tissue; L97.522 Non-pressure chronic ulcer of other part of left foot with fat layer exposed; I73.9 Peripheral vascular disease, unspecified; I87.2 Venous insufficiency (chronic) (peripheral); E11.622 Type 2 diabetes mellitus with other skin ulcer; R60.0 Localized edema; L53.9 Erythematous condition, unspecified; L03.115 Cellulitis of right lower limb; L03.116 Cellulitis of left lower limb
CPT/HCPCS: 11042; 11045; 97605

== ENCOUNTER → 2024-03-31 13:04 | Outpatient (CLI) | payer OTHER, SELFPAY ==
[2024-02-16 21:37] VITALS: BMI 37.7
== END ==
PROVIDERS: PCP Internal Medicine; Referring Provider Surgery; Visit Provider Surgery
DX: L03.116 Cellulitis of left lower limb (principal); L97.822 Non-pressure chronic ulcer of other part of left lower leg with fat layer exposed
CPT/HCPCS: 97605; 99212

== ENCOUNTER → 2024-04-04 10:03 | Outpatient (CLI) | payer OTHER, SELFPAY ==
[2024-02-16 21:37] VITALS: BMI 37.7
== END ==
LOC: WC 10:04
PROVIDERS: PCP Internal Medicine; Referring Provider Surgery; Visit Provider Physician Assistant
DX: L98.8 Other specified disorders of the skin and subcutaneous tissue (principal); S81.802A Unspecified open wound, left lower leg, initial encounter; E11.621 Type 2 diabetes mellitus with foot ulcer; L97.522 Non-pressure chronic ulcer of other part of left foot with fat layer exposed; R60.0 Localized edema
CPT/HCPCS: 11042; 97605; 99214

== ENCOUNTER → 2024-04-07 10:02 | Outpatient (CLI) | payer OTHER, SELFPAY ==
[2024-02-16 21:37] VITALS: BMI 37.7
== END ==
PROVIDERS: PCP Internal Medicine; Referring Provider Surgery; Visit Provider Physician Assistant
DX: L97.822 Non-pressure chronic ulcer of other part of left lower leg with fat layer exposed (principal); L97.522 Non-pressure chronic ulcer of other part of left foot with fat layer exposed; R60.0 Localized edema; L03.116 Cellulitis of left lower limb
CPT/HCPCS: 97605

== ENCOUNTER → 2024-04-11 14:17 | Outpatient (CLI) | payer OTHER, SELFPAY ==
[2024-02-16 21:37] VITALS: BMI 37.7
== END ==
LOC: WC 14:17
PROVIDERS: PCP Internal Medicine; Referring Provider Surgery; Visit Provider Surgery
DX: L98.8 Other specified disorders of the skin and subcutaneous tissue (principal); S81.802A Unspecified open wound, left lower leg, initial encounter; E11.622 Type 2 diabetes mellitus with other skin ulcer; L97.522 Non-pressure chronic ulcer of other part of left foot with fat layer exposed; R60.0 Localized edema; I73.9 Peripheral vascular disease, unspecified; I87.2 Venous insufficiency (chronic) (peripheral)
CPT/HCPCS: 11042; 97605

== ENCOUNTER → 2024-04-14 13:38 | Outpatient (CLI) | payer OTHER, SELFPAY ==
[2024-02-16 21:37] VITALS: BMI 37.7
== END ==
PROVIDERS: PCP Internal Medicine; Referring Provider Internal Medicine; Visit Provider Surgery
DX: L03.116 Cellulitis of left lower limb (principal); L97.822 Non-pressure chronic ulcer of other part of left lower leg with fat layer exposed; L97.522 Non-pressure chronic ulcer of other part of left foot with fat layer exposed
CPT/HCPCS: 97605

== ENCOUNTER → 2024-04-18 11:28 | Outpatient (CLI) | payer OTHER, SELFPAY ==
[2024-02-16 21:37] VITALS: BMI 37.7
== END ==
PROVIDERS: PCP Internal Medicine; Referring Provider Internal Medicine; Visit Provider Surgery
DX: E11.621 Type 2 diabetes mellitus with foot ulcer (principal); L97.528 Non-pressure chronic ulcer of other part of left foot with other specified severity; L98.8 Other specified disorders of the skin and subcutaneous tissue; S81.802A Unspecified open wound, left lower leg, initial encounter; L03.116 Cellulitis of left lower limb; I73.9 Peripheral vascular disease, unspecified; I87.2 Venous insufficiency (chronic) (peripheral); R60.0 Localized edema; I25.10 Atherosclerotic heart disease of native coronary artery without angina pectoris; I50.9 Heart failure, unspecified
CPT/HCPCS: 11042; 97605; 99213

== ENCOUNTER → 2024-04-21 13:45 | Outpatient (CLI) | payer OTHER, SELFPAY ==
[2024-02-16 21:37] VITALS: BMI 37.7
== END ==
PROVIDERS: PCP Internal Medicine; Referring Provider Surgery; Visit Provider Surgery
DX: L97.822 Non-pressure chronic ulcer of other part of left lower leg with fat layer exposed (principal); L97.528 Non-pressure chronic ulcer of other part of left foot with other specified severity; L03.116 Cellulitis of left lower limb; R60.0 Localized edema
CPT/HCPCS: 97605

== ENCOUNTER → 2024-04-25 14:45 | Outpatient (CLI) | payer OTHER, SELFPAY ==
[2024-02-16 21:37] VITALS: BMI 37.7
== END ==
LOC: WC 14:47
PROVIDERS: PCP Internal Medicine; Referring Provider Surgery; Visit Provider Surgery
DX: L97.522 Non-pressure chronic ulcer of other part of left foot with fat layer exposed (principal); I73.9 Peripheral vascular disease, unspecified; I87.2 Venous insufficiency (chronic) (peripheral); E11.621 Type 2 diabetes mellitus with foot ulcer; S81.802A Unspecified open wound, left lower leg, initial encounter; L98.8 Other specified disorders of the skin and subcutaneous tissue; R60.0 Localized edema
CPT/HCPCS: 11042; 97605

== ENCOUNTER → 2024-04-28 13:06 | Outpatient (CLI) | payer OTHER, SELFPAY ==
[2024-02-16 21:37] VITALS: BMI 37.7
== END ==
PROVIDERS: PCP Internal Medicine; Referring Provider Surgery; Visit Provider Surgery
DX: L03.116 Cellulitis of left lower limb (principal); R60.0 Localized edema; L97.822 Non-pressure chronic ulcer of other part of left lower leg with fat layer exposed; L97.522 Non-pressure chronic ulcer of other part of left foot with fat layer exposed
CPT/HCPCS: 97605

== ENCOUNTER → 2024-05-02 15:38 | Outpatient (CLI) | payer OTHER, SELFPAY ==
[2024-02-16 21:37] VITALS: BMI 37.7
== END ==
PROVIDERS: PCP Internal Medicine; Referring Provider Surgery; Visit Provider Surgery
DX: L97.522 Non-pressure chronic ulcer of other part of left foot with fat layer exposed (principal); L98.8 Other specified disorders of the skin and subcutaneous tissue; S81.802A Unspecified open wound, left lower leg, initial encounter; I73.9 Peripheral vascular disease, unspecified; I87.2 Venous insufficiency (chronic) (peripheral); E11.621 Type 2 diabetes mellitus with foot ulcer; R60.0 Localized edema
CPT/HCPCS: 11042

== ENCOUNTER → 2024-05-05 11:41 | Outpatient (CLI) | payer OTHER, SELFPAY ==
[2024-02-16 21:37] VITALS: BMI 37.7
== END ==
PROVIDERS: PCP Internal Medicine; Referring Provider Surgery; Visit Provider Surgery
DX: L03.116 Cellulitis of left lower limb (principal); R60.0 Localized edema
CPT/HCPCS: 99213

== ENCOUNTER → 2024-05-09 09:24 | Outpatient (CLI) | payer OTHER, SELFPAY ==
[2024-02-16 21:37] VITALS: BMI 37.7
== END ==
LOC: WC 09:28
PROVIDERS: PCP Internal Medicine; Referring Provider Surgery; Visit Provider Surgery
DX: L03.116 Cellulitis of left lower limb (principal); E11.622 Type 2 diabetes mellitus with other skin ulcer; L97.822 Non-pressure chronic ulcer of other part of left lower leg with fat layer exposed; L97.522 Non-pressure chronic ulcer of other part of left foot with fat layer exposed; R60.0 Localized edema; L98.8 Other specified disorders of the skin and subcutaneous tissue
CPT/HCPCS: 11042

== ENCOUNTER → 2024-05-12 10:18 | Outpatient (CLI) | payer OTHER, SELFPAY ==
[2024-02-16 21:37] VITALS: BMI 37.7
== END ==
LOC: WC 10:19
PROVIDERS: PCP Internal Medicine; Referring Provider Surgery; Visit Provider Surgery
DX: L03.116 Cellulitis of left lower limb (principal); L97.822 Non-pressure chronic ulcer of other part of left lower leg with fat layer exposed; L97.522 Non-pressure chronic ulcer of other part of left foot with fat layer exposed; L98.8 Other specified disorders of the skin and subcutaneous tissue; R60.0 Localized edema
CPT/HCPCS: 99213

== ENCOUNTER → 2024-05-19 09:34 | Outpatient (CLI) | payer OTHER, SELFPAY ==
[2024-02-16 21:37] VITALS: BMI 37.7
== END ==
LOC: WC 09:37
PROVIDERS: PCP Internal Medicine; Referring Provider Surgery; Visit Provider Surgery
DX: I87.2 Venous insufficiency (chronic) (peripheral) (principal); L03.116 Cellulitis of left lower limb; S81.802A Unspecified open wound, left lower leg, initial encounter; L97.822 Non-pressure chronic ulcer of other part of left lower leg with fat layer exposed; L98.8 Other specified disorders of the skin and subcutaneous tissue; I10 Essential (primary) hypertension; E11.622 Type 2 diabetes mellitus with other skin ulcer; I73.9 Peripheral vascular disease, unspecified
CPT/HCPCS: 11042; 87070; 87075; 87077; 87147; 87186; 87205; 99213

== ENCOUNTER → 2024-05-23 09:49 | Outpatient (CLI) | payer OTHER, SELFPAY ==
[2024-02-16 21:37] VITALS: BMI 37.7
== END ==
LOC: WC 09:49
PROVIDERS: PCP Internal Medicine; Referring Provider Surgery; Visit Provider Surgery
DX: L03.116 Cellulitis of left lower limb (principal); L97.822 Non-pressure chronic ulcer of other part of left lower leg with fat layer exposed; L97.522 Non-pressure chronic ulcer of other part of left foot with fat layer exposed; L98.8 Other specified disorders of the skin and subcutaneous tissue; R60.0 Localized edema
CPT/HCPCS: 99213

== ENCOUNTER → 2024-05-26 09:26 | Outpatient (CLI) | payer OTHER, SELFPAY ==
[2024-02-16 21:37] VITALS: BMI 37.7
== END ==
LOC: WC 09:28
PROVIDERS: PCP Internal Medicine; Referring Provider Surgery; Visit Provider Surgery
DX: I87.2 Venous insufficiency (chronic) (peripheral) (principal); L97.522 Non-pressure chronic ulcer of other part of left foot with fat layer exposed; L97.822 Non-pressure chronic ulcer of other part of left lower leg with fat layer exposed; R60.0 Localized edema; L98.8 Other specified disorders of the skin and subcutaneous tissue
CPT/HCPCS: 11042

== ENCOUNTER → 2024-05-30 11:04 | Outpatient (CLI) | payer OTHER, SELFPAY ==
[2024-02-16 21:37] VITALS: BMI 37.7
== END ==
LOC: WC 11:09
PROVIDERS: PCP Internal Medicine; Referring Provider Surgery; Visit Provider Surgery
DX: E11.621 Type 2 diabetes mellitus with foot ulcer (principal); L97.522 Non-pressure chronic ulcer of other part of left foot with fat layer exposed; L97.822 Non-pressure chronic ulcer of other part of left lower leg with fat layer exposed; I87.2 Venous insufficiency (chronic) (peripheral); R60.0 Localized edema
CPT/HCPCS: 99212

== ENCOUNTER → 2024-06-02 09:34 | Outpatient (CLI) | payer OTHER, SELFPAY ==
[2024-02-16 21:37] VITALS: BMI 37.7
== END ==
LOC: WC 09:34
PROVIDERS: PCP Internal Medicine; Referring Provider Surgery; Visit Provider Surgery
DX: E11.621 Type 2 diabetes mellitus with foot ulcer (principal); L97.522 Non-pressure chronic ulcer of other part of left foot with fat layer exposed; L97.822 Non-pressure chronic ulcer of other part of left lower leg with fat layer exposed; I73.9 Peripheral vascular disease, unspecified; I87.2 Venous insufficiency (chronic) (peripheral); R60.0 Localized edema; I11.0 Hypertensive heart disease with heart failure; I50.9 Heart failure, unspecified; J44.9 Chronic obstructive pulmonary disease, unspecified
CPT/HCPCS: 11042

== ENCOUNTER → 2024-06-06 11:40 | Outpatient (CLI) | payer OTHER, SELFPAY ==
[2024-02-16 21:37] VITALS: BMI 37.7
== END ==
PROVIDERS: PCP Internal Medicine; Referring Provider Surgery; Visit Provider Surgery
DX: E11.621 Type 2 diabetes mellitus with foot ulcer (principal); L97.522 Non-pressure chronic ulcer of other part of left foot with fat layer exposed; R23.4 Changes in skin texture; L98.8 Other specified disorders of the skin and subcutaneous tissue; R60.0 Localized edema
CPT/HCPCS: 99213

== ENCOUNTER → 2024-06-09 10:49 | Outpatient (CLI) | payer OTHER, SELFPAY ==
[2024-02-16 21:37] VITALS: BMI 37.7
== END ==
PROVIDERS: PCP Internal Medicine; Referring Provider Surgery; Visit Provider Surgery
DX: E11.621 Type 2 diabetes mellitus with foot ulcer (principal); L97.522 Non-pressure chronic ulcer of other part of left foot with fat layer exposed; L97.822 Non-pressure chronic ulcer of other part of left lower leg with fat layer exposed; E11.622 Type 2 diabetes mellitus with other skin ulcer; L98.8 Other specified disorders of the skin and subcutaneous tissue; R23.4 Changes in skin texture
CPT/HCPCS: 11042

== ENCOUNTER → 2024-06-16 10:15 | Outpatient (CLI) | payer OTHER, SELFPAY ==
[2024-02-16 21:37] VITALS: BMI 37.7
--- NOTE | 2024-06-16 | OV.WND_ITS ---
PROGRESS NOTE DETAILS PATIENT NAME: TAISHA BRADFORD PATIENT NUMBER: [id number] CLINICIAN: PEDRO MAY PATIENT DATE OF : 1960 PHYSICIAN / HOSE MENDER: DIDI SOMMER PATIENT SUBJECTIVE CHIEF COMPLAINT THIS INFORMATION WAS OBTAINED FROM THE PATIENT. NO ISSUES ALLERGIES CODEINE (REACTION: HALLUCINATING) HPI THIS INFORMATION WAS OBTAINED FROM THE PATIENT. THE FOLLOWING HPI ELEMENTS WERE DOCUMENTED FOR THE PATIENT'S WOUND: LOCATION: LLE, L FOOT DURATION: 12/13/23, 04/28/24 CONTEXT: INFECTIOUS/DIABETIC THE PATIENT IS A 63-YEAR-OLD MALE WITH DIABETES, CAD, HYPERTENSION, CHF, VENOUS INSUFFICIENCY, AND COPD WHO RETURNS TODAY FOR FOLLOW UP OF OPEN WOUND LEFT LOWER EXTREMITY AND ULCER DORSUM LEFT FOOT. HE HAS BEEN RECEIVING DRESSING CHANGES WITH HEAL WELL GEL TO ULCER LEFT FOOT HOWEVER IT HAS ONLY BEEN APPLIED ONCE SINCE LAST VISIT. HE HAS BEEN RECEIVING DRESSING CHANGES WITH HYDROFERA BLUE AND ADAPTIC TO THE ULCER ON THE ANTERIOR LEFT LOWER EXTREMITY. THE PATIENT HAS RECENTLY COMPLETED A COURSE OF DOXYCYCLINE. THE PATIENT IS WITHOUT COMPLAINTS ON TODAY'S VISIT. THE PATIENT REPORTS A GOOD APPETITE AND DENIES HAVING ANY OTHER RECENT CHANGES IN HIS OVERALL HEALTH. THE PATIENT HAS NO PRIOR HISTORY OF DVT NOR HAS HE EVER HAD ANY NON HEALING WOUNDS IN THE PAST. HE DOES GIVE A HISTORY OF HAVING CHRONIC LOWER EXTREMITY SWELLING AND HAS HEMOSIDERIN ON BOTH LOWER EXTREMITIES. ON EXAM TODAY THE ULCERS ON THE ANTERIOR RIGHT LOWER EXTREMITY ARE IMPROVED. THE ULCER ON THE DORSUM OF THE LEFT FOOT IS LARGER AND HAS DRIED DRAINAGE. THE PATIENT UNDERWENT STENT PLACEMENT ON March AND IS NOW ON PLAVIX. LABS: 05/19/24: CULTURES GREW STAPHYLOCOCCUS AUREUS AND PROTEUS MIRABILIS 02/29/24: CULTURE LEFT FOOT NEGATIVE 02/20/24: WBC 5.6, HEMOGLOBIN 13.3, HCT 39.5, SODIUM 132, BUN 25, CREATININE 1.23, GFR GREATER THAN 60 02/18/24: HEMOGLOBIN A1C 6.8 02/17/24: ARTERIAL DOPPLER REVEALED: TECHNICALLY LIMITED EXAM DUE TO BODY HABITUS. PROXIMAL AND MID SUPERFICIAL FEMORAL ARTERY STENOSIS OF APPROXIMATELY 50-99% STENOSIS. 02/16/24: CULTURE GREW PROVIDENCIA RETTGERI 02/16/24: MRI: NO MR EVIDENCE OF OSTEOMYELITIS. FAMILY HISTORY THIS INFORMATION WAS OBTAINED FROM THE PATIENT. TAISHA BRADFORD [id number] 1960 LUNG DISEASE- FATHER NONE- MOTHER, MATERNAL GRANDPARENTS, PATERNAL GRANDPARENTS SOCIAL HISTORY THIS INFORMATION WAS OBTAINED FROM THE PATIENT. FORMER SMOKER ALCOHOL USE: FORMER MEDICAL HISTORY THIS INFORMATION WAS OBTAINED FROM THE PATIENT. PATIENT HAS A MEDICAL HISTORY OF: ENLARGED PROSTATE OBESITY HYPERTENSION CONGESTIVE HEART FAILURE TYPE II DIABETES CORONARY ARTERY DISEASE (CAD) CHRONIC OBSTRUCTIVE PULMONARY DISEASE (COPD) ADDITIONAL INFORMATION DOES PATIENT HAVE A HISTORY OF CANCER? YES? COMPLETE ALL QUESTIONS.: NO SURGICAL HISTORY THIS INFORMATION WAS OBTAINED FROM THE PATIENT. REVIEW OF SYSTEMS (ROS) THIS INFORMATION WAS OBTAINED FROM THE PATIENT. COMPLAINTS AND SYMPTOMS PATIENT COM PLAINS OF: CARDIOVASCULAR (CENTRAL): DYSPNEA ON EXERTION CO-MORBID CONDITIONS: CONGESTIVE HEART FAILURE, CORONARY ARTERY DISEASE, DIABETES, PERIPHERAL ARTERIAL DISEASE, VENOUS INSUFFIENCY HEMATOLOGIC/LYMPHATIC: SWELLING PRIOR WOUND HISTORY: DRAINAGE, ERYTHEMA, MALODOR, PAIN RESPIRATORY: SHORTNESS OF BREATH PATIENT DENIES COM PLAINTS OR SY M PTOM S RELATED TO: CARDIOVASCULAR (CENTRAL): CHEST PAIN CONSTITUTIONAL SYMPTOMS (GENERAL HEALTH): CHILLS, FEVER, LOSS OF APPETITE PRIOR WOUND HISTORY: BLEEDING RESPIRATORY: COUGH OBJECTIVE VITALS HEIGHT/LENGTH: 75 IN (190.5 CM), WEIGHT: 303.8 LBS (138.09 KGS), BMI: 38, TEMPERATURE: 97.6 ?F (36.44 ?C), PULSE: 97 BPM, RESPIRATORY RATE: 18 BREATHS/MIN, BLOOD PRESSURE: 152/80 MMHG, PULSE OXIMETRY: 98 %. TAISHA BRADFORD [id number] 1960 PHYSICAL EXAM CONSTITUTIONAL: VITAL SIGNS REVIEWED AND NOTED. WELL DEVELOPED, WELL NOURISHED, AND IN NO ACUTE DISTRESS. ALERT AND ORIENTED X3. INTEGUMENTARY (HAIR, SKIN): HEMOSIDERIN. NO SWELLING OR TENDERNESS. SEE WOUND ASSESSMENT. SKIN WARM AND DRY. NO RASHES. NEUROLOGICAL: SENSATION: SYMMETRIC FUNCTION BY INFORMAL OBSERVATION. PSYCHIATRIC: ORIENTATION TO TIME, PLACE AND PERSON: NORMAL AFFECT WITH NORMAL THOUGHT PATTERN. ADDITIONAL INFORMATION THE PATIENT'S POTENTIAL TO HEAL IS: GOOD. LOWER EXTREMITY ASSESSMENT EDEMA ASSESSMENT: LEFT EXTREMITY: EDEMA IS PRESENT COMPRESSION DEVICE IN USE: YES DEVICE USED CORRECTLY: YES DEVICE IN USE: COMPRESSION STOCKINGS CALF MEASUREMENT 40 CM FROM HEEL WITH LEFT MEASUREMENT OF 39 CM ANKLE MEASUREMENT 5 CM FROM ANKLE WITH LEFT MEASUREMENT OF 26.5 CM FOOT MEASUREMENT 14 CM FROM HEEL WITH LEFT MEASUREMENT OF 24.5 CM RIGHT EXTREMITY: EDEMA IS PRESENT COMPRESSION DEVICE IN USE: YES DEVICE USED CORRECTLY: YES DEVICE IN USE: COMPRESSION STOCKINGS VASCULAR ASSESSMENT LEFT EXTREMITY COLORS, HAIR GROWTH, AND CONDITIONS: EXTREMITY COLOR: DUSKY HAIR GROWTH ON EXTREMITY: NO TEMPERATURE OF EXTREMITY: COOL CAPILARY REFILL: < 3 SECONDS ERYTHEMA: YES DEPENDENT RUBOR: NO HYPERPIGMENTATION: YES LIPODERMATOSCLEROSIS: NO RIGHT EXTREMITY COLORS, HAIR GROWTH, AND CONDITIONS: EXTREMITY COLOR: PIGMENTED HAIR GROWTH ON EXTREMITY: NO TEMPERATURE OF EXTREMITY: COOL CAPILARY REFILL: < 3 SECONDS ERYTHEMA: NO DEPENDENT RUBOR: NO HYPERPIGMENTATION: YES LIPODERMATOSCLEROSIS: NO OFF-LOADING: LEFT OFF-LOADING DEVICE IN USE: NO RIGHT OFF-LOADING DEVICE IN USE: NO WOUND ASSESSMENT(S) WOUND #2 LEFT FOOT IS A CHRONIC FELIZ GRADE 2 DIABETIC ULCER ACQUIRED ON 12/13/2023 AND HAS RECEIVED A STATUS OF NOT HEALED. INITIAL WOUND ENCOUNTER MEASUREMENTS ARE 1.2CM LENGTH X 0.5CM WIDTH X 0.1 CM DEPTH, WITH AN AREA OF 0.6 SQ CM AND A VOLUME OF 0.06 CUBIC CM.INITIAL WOUND ENCOUNTER PREVIOUS MEASUREMENTS FROM 06/09/2024 ARE 0.5CM LENGTH X 0.2CM WIDTH X 0.1CM DEPTH, WITH AN AREA OF 0.1 SQ CM AND A VOLUME OF 0.01 CUBIC CM. ADIPOSE IS EXPOSED. NO TUNNELING HAS BEEN NOTED. NO SINUS TRACT HAS BEEN NOTED. NO UNDERMINING HAS BEEN NOTED. THERE IS A SCANT AMOUNT OF SEROSANGUINEOUS DRAINAGE NOTED WHICH HAS NO ODOR. THE PATIENT REPORTS A WOUND PAIN OF LEVEL 0/10. TAISHA BRADFORD [id number] 1960 THE WOUND MARGIN IS ATTACHED WOUND BED HAS NO, GRANULATION, YES SLOUGH, YES ESCHAR, YES EPITHELIALIZATION. THE PERIWOUND SKIN EXHIBITED EDEMA AND HEMOSIDEROSIS. THE PERIWOUND SKIN DID NOT EXHIBIT BRAWNY INDURATION, EXCORIATION, INDURATION, CALLUS, CREPITUS, FLUCTUANCE, RASH, MACERATION, ATROPHIE GUILLE, CYANOSIS, ECCHYMOSIS, ERYTHEMA, PALLOR AND RUBOR. THE PERIWOUND SKIN WAS DRY/SCALY. THE PERIWOUND SKIN WAS NOT FRIABLE AND MOIST. THE TEMPERATURE OF THE PERIWOUND SKIN IS WNL. PERIWOUND SKIN DOES NOT EXHIBIT SIGNS OR SYMPTOMS OF INFECTION. LOCAL PULSE IS DOPPLER. ADDITIONAL INFORMATION OTHER DEVITALIZED TISSUE PRESENT: BIOFILM WOUND #4 LEFT, ANTERIOR LEG IS A CHRONIC FULL THICKNESS VENOUS ULCER ACQUIRED ON 04/28/2024 AND HAS RECEIVED A STATUS OF NOT HEALED. INITIAL WOUND ENCOUNTER MEASUREMENTS ARE 0.3CM LENGTH X 0.3CM WIDTH X 0.1 CM DEPTH, WITH AN AREA OF 0.09 SQ CM AND A VOLUME OF 0.009 CUBIC CM.INITIAL WOUND ENCOUNTER PREVIOUS MEASUREMENTS FROM 06/09/2024 ARE 0.8CM LENGTH X 0.9CM WIDTH X 0.1CM DEPTH, WITH AN AREA OF 0.72 SQ CM AND A VOLUME OF 0.072 CUBIC CM. ADIPOSE IS EXPOSED. HYPERGRANULATION WAS NOTED. NO TUNNELING HAS BEEN NOTED. NO SINUS TRACT HAS BEEN NOTED. NO UNDERMINING HAS BEEN NOTED. THERE IS A SMALL AMOUNT OF SEROSANGUINEOUS DRAINAGE NOTED WHICH HAS NO ODOR. THE PATIENT REPORTS A WOUND PAIN OF LEVEL 2/10. THE WOUND MARGIN IS ATTACHED WOUND BED HAS YES, BRIGHT RED, PINK, FIRM, GRANULATION, YES SLOUGH, NO ESCHAR, NO EPITHELIALIZATION. THE PERIWOUND SKIN EXHIBITED EDEMA AND HEMOSIDEROSIS. THE PERIWOUND SKIN DID NOT EXHIBIT BRAWNY INDURATION, EXCORIATION, INDURATION, CALLUS, CREPITUS, FLUCTUANCE, RASH, ATROPHIE GUILLE, CYANOSIS, ECCHYMOSIS, ERYTHEMA, PALLOR AND RUBOR. THE PERIWOUND SKIN WAS NOT FRIABLE. THE TEMPERATURE OF THE PERIWOUND SKIN IS WNL. PERIWOUND SKIN DOES NOT EXHIBIT SIGNS OR SYMPTOMS OF INFECTION. LOCAL PULSE IS DOPPLER. ADDITIONAL INFORMATION OTHER DEVITALIZED TISSUE PRESENT: BIOFILM RESULTS?: TWO OPENINGS ASSESSMENT ACTIVE PROBLEMS ICD-10 (ENCOUNTER DIAGNOSIS) L97.522 - NON-PRESSURE CHRONIC ULCER OF OTHER PART OF LEFT FOOT WITH FAT LAYER EXPOSED (ENCOUNTER DIAGNOSIS) S81.802D - UNSPECIFIED OPEN WOUND, LEFT LOWER LEG, SUBSEQUENT ENCOUNTER (ENCOUNTER DIAGNOSIS) I73.9 - PERIPHERAL VASCULAR DISEASE, UNSPECIFIED (ENCOUNTER DIAGNOSIS) I87.2 - VENOUS INSUFFICIENCY (CHRONIC) (PERIPHERAL) (ENCOUNTER DIAGNOSIS) E11.622 - TYPE 2 DIABETES MELLITUS WITH OTHER SKIN ULCER (ENCOUNTER DIAGNOSIS) E11.621 - TYPE 2 DIABETES MELLITUS WITH FOOT ULCER (ENCOUNTER DIAGNOSIS) L97.822 - NON-PRESSURE CHRONIC ULCER OF OTHER PART OF LEFT LOWER LEG WITH FAT LAYER EXPOSED GENERAL NOTES ULCER DORSUM LEFT FOOT LARGER ULCERS ANTERIOR LEFT LOWER EXTREMITY IMPROVED THE FOLLOWING FACTORS HAVE BEEN IDENTIFIED THAT MAY AFFECT WOUND HEALING: DEVITALIZED TISSUE BIOFILM INFECTION PAD VENOUS INSUFFICIENCY TAISHA HUNT [id number] 1960 SWELLING GOALS: REMOVE DEVITALIZED TISSUE REMOVE AND PREVENT BIOFILM TREAT INFECTION REDUCE SWELLING ASSESS ARTERIAL CIRCULATION WOUND CLOSURE PLAN: DEBRIDEMENT, SWITCH TO DRESSING CHANGES WITH ADAPTIC AND HYDROFERA BLUE TO ALL OF THE ULCERS WITH TUBIGRIP FOR COMPRESSION. CONTINUE PROTEIN SUPPLEMENTATION. FOLLOW UP IN ONE WEEK FOR A RECHECK. PROCEDURES WOUND #2 WOUND #2 (DIABETIC ULCER) IS LOCATED ON THE LEFT FOOT. A SKIN/SUBCUTANEOUS TISSUE LEVEL SURGICAL DEBRIDEMENT WITH A TOTAL AREA DEBRIDED OF 0.6 SQ CM. WAS PERFORMED BY DIDI SOMMER MD. SUBCUTANEOUS WAS REMOVED ALONG WITH DEVITALIZED TISSUE: BIOFILM, EXUDATE AND SLOUGH. THE FOLLOWING INSTRUMENT(S) WERE USED: CURETTE. PAIN CONTROL WAS ACHIEVED USING EMLA LIDOCAINE/PRILOCAINE 2.5%/2.5%. A TIME OUT WAS CONDUCTED PRIOR TO THE START OF THE PROCEDURE. A MINIMAL AMOUNT OF BLEEDING WAS CONTROLLED WITH PRESSURE. THE PROCEDURE WAS TOLERATED WELL WITH A PAIN LEVEL OF 0 THROUGHOUT AND A PAIN LEVEL OF 0 FOLLOWING THE PROCEDURE. POST DEBRIDEMENT MEASUREMENTS: 1.2CM LENGTH X 0.5CM WIDTH X 0.2CM DEPTH; WITH AN AREA OF 0.6 SQ CM AND A VOLUME OF 0.12 CUBIC CM. ADDITIONAL INFORMATION MUSCLE FASCIA OR BONE REMOVED AND SENT TO PATHOLOGY?: NO WOUND #4 WOUND #4 (VENOUS ULCER) IS LOCATED ON THE LEFT, ANTERIOR LEG. A SKIN/SUBCUTANEOUS TISSUE LEVEL SURGICAL DEBRIDEMENT WITH A TOTAL AREA DEBRIDED OF 0.09 SQ CM. WAS PERFORMED BY DIDI SOMMER MD. SUBCUTANEOUS WAS REMOVED ALONG WITH DEVITALIZED TISSUE: BIOFILM, EXUDATE AND SLOUGH. THE FOLLOWING INSTRUMENT(S) WERE USED: CURETTE. PAIN CONTROL WAS ACHIEVED USING EMLA LIDOCAINE/PRILOCAINE 2.5%/2.5%. A TIME OUT WAS CONDUCTED PRIOR TO THE START OF THE PROCEDURE. A MINIMAL AMOUNT OF BLEEDING WAS CONTROLLED WITH PRESSURE. THE PROCEDURE WAS TOLERATED WELL WITH A PAIN LEVEL OF 0 THROUGHOUT AND A PAIN LEVEL OF 0 FOLLOWING THE PROCEDURE. POST DEBRIDEMENT MEASUREMENTS: 0.3CM LENGTH X 0.3CM WIDTH X 0.2CM DEPTH; WITH AN AREA OF 0.09 SQ CM AND A VOLUME OF 0.018 CUBIC CM. ADDITIONAL INFORMATION MUSCLE FASCIA OR BONE REMOVED AND SENT TO PATHOLOGY?: NO PLAN WOUND ORDERS: WOUND #2 LEFT FOOT HAND HYGIENE HAND HYGIENE - WASH HANDS BEFORE AND AFTER WOUND CARE. CALL THE WOUND CENTER AT [phone] IF YOU HAVE SIGNS OR SYMPTOMS OF INFECTION, FEVER CHILLS OR SHAKES, INCREASED DRAINAGE, INCREASED ODOR OR UNUSUAL REDNESS. AFTER WOUND CENTER HOURS PLEASE NOTIFY YOUR PCP OR GO TO THE EMERGENCY ROOM. CLEANSER CLEANSE WOUND WITH NORMAL SALINE APPLY HYPOCHLOROUS ACID (VASHE OR SIMILAR) SOAKED 4X4 GAUZE TO WOUND BED FOR 5- 10 MINUTES AFTER TAISHA BRADFORD [id number] 1960 PROVIDER HAS COMPLETED WOUND EXAM. REMOVE GAUZE AND DRESS WOUND ACCORDING TO DRESSING ORDERS. MAY SHOWER, LEAVE WOUND DRESSING INTACT. COVER WOUND DRESSING WITH A WATERPROOF BARRIER. KEEP DRESSING DRY. NO BATHS PLEASE. PROCEDURE / ANESTHETIC 5% TOPICAL LIDOCAINE TO WOUND BED PRIOR TO PROCEDURE, IN CLINIC ONLY. DRESSING ORDERS APPLY DRESSING(S) AND SECURE WITH: - ADAPTIC, HYDROFERA BLUE, ROLL GAUZE. DRESSING CHANGE FREQUENCY LEAVE DRESSING INTACT UNTIL YOUR NEXT WOUND CENTER APPOINTMENT. KEEP DRY. WOUND #4 LEFT, ANTERIOR LEG HAND HYGIENE HAND HYGIENE - WASH HANDS BEFORE AND AFTER WOUND CARE. CALL THE WOUND CENTER AT [phone] IF YOU HAVE SIGNS OR SYMPTOMS OF INFECTION, FEVER CHILLS OR SHAKES, INCREASED DRAINAGE, INCREASED ODOR OR UNUSUAL REDNESS. AFTER WOUND CENTER HOURS PLEASE NOTIFY YOUR PCP OR GO TO THE EMERGENCY ROOM. CLEANSER CLEANSE WOUND WITH NORMAL SALINE APPLY HYPOCHLOROUS ACID (VASHE OR SIMILAR) SOAKED 4X4 GAUZE TO WOUND BED FOR 5- 10 MINUTES AFTER PROVIDER HAS COMPLETED WOUND EXAM. REMOVE GAUZE AND DRESS WOUND ACCORDING TO DRESSING ORDERS. MAY SHOWER, LEAVE WOUND DRESSING INTACT. COVER WOUND DRESSING WITH A WATERPROOF BARRIER. KEEP DRESSING DRY. NO BATHS PLEASE. PROCEDURE / ANESTHETIC 5% TOPICAL LIDOCAINE TO WOUND BED PRIOR TO PROCEDURE, IN CLINIC ONLY. DRESSING ORDERS APPLY DRESSING(S) AND SECURE WITH: - ADAPTIC, HYDROFERA BLUE, ROLL GAUZE. DRESSING CHANGE FREQUENCY LEAVE DRESSING INTACT UNTIL YOUR NEXT WOUND CENTER APPOINTMENT. KEEP DRY. ADDITIONAL ORDERS: COMPRESSION/EDEMA CONTROL ELEVATE LEG(S) ABOVE THE LEVEL OF THE HEART MUCH POSSIBLE. AVOID STANDING IN ONE POSITION FOR MORE THAN 10 MINUTES. AVOID SITTING WITH LEGS DOWN. DO NOT CROSS LEGS WHEN SITTING. APPLY SINGLE LAYER COMPRESSION TO THE AFFECTED LEG(S). TUBULAR COMPRESSION DRESSING: APPLY TUBULAR DRESSING FROM MID-FOOT TO KNEE MAKING SURE TO COVER THE HEEL. APPLY IN THE MORNING. REMOVE AT BEDTIME AND ELEVATE LEGS OR LIE DOWN. - MEDIGRIP SIZE E. MAY PURCHASE ROLL ONLINE. DIETARY TAKE VITAMIN C 1000MG BY MOUTH DAILY. TAKE ZINC 25MG BY MOUTH DAILY. FOLLOW A DIABETIC DIET. INCREASE THE PROTEIN IN YOUR DIET. FOLLOW-UP APPOINTMENTS RETURN APPOINTMENT 1 WEEK - THURSDAY . RETURN FOR NURSE VISIT ON DATE NOTED BELOW FOR WOUND ASSESSMENT, MECHANICAL DEBRIDEMENT NECESSARY, AND DRESSING CHANGE ORDERED DURING TODAY'S VISIT: COMPLETE FOR DIAGNOSIS OF: - MONDAYS. SCRIBING ATTESTATION I ATTEST, THE NURSE, THAT I SCRIBED THESE ORDERS FOR THE WOUND CARE PROVIDER. PROVIDER REVIEW AND ATTESTATION: REVIEWED AND EVALUATED LABS. REVIEWED HOSPITAL RECORDS. DISCUSSED THE PLAN OF CARE @ BEDSIDE WITH - THE PATIENT I AGREE AND ATTEST TO THE ABOVE INFORMATION PROVIDED FROM OTHER LICENSED PROFESSIONALS. PLAN OF CARE: 01. ENSURE/ESTABLISH OPTIMAL BLOOD FLOW : - COMPLETE LOWER EXTREMITY ASSESSMENT STATUS: CONTINUED DATE: 05/19/2024 - ORDER VASCULAR CONSULT FOR EVALUATION/TREATMENT AND/OR NON-INVASIVE VASCULAR TESTING. STATUS: COMPLETED DATE: 05/19/2024 - EVALUATE FOR COMPRESSION THERAPY STATUS: CONTINUED DATE: 05/19/2024 TAISHA BRADFORD [id number] 1960 02. ASSESS FOR/TREAT INFECTION : - EVALUATE FOR SIGNS AND SYMPTOMS OF INFECTION AND DOCUMENT FINDINGS. STATUS: CONTINUED DATE: 05/19/2024 - OBTAIN CULTURE AND SENSITIVITY (CANDS) OR TISSUE CULTURE WHEN INFECTION IS SUSPECTED. (NOTE:) CONSIDER REPEATING WHEN WOUND HEALING <40% AFTER 30 DAYS OF WOUND CARE. STATUS: COMPLETED DATE: 05/19/2024 03. DEBRIDE WEEKLY OR MORE OFTEN PRN : - EVALUATE PATIENT IN CENTER WEEKLY TO ASSESS WOUND BED AND MARGINS FOR NEED FOR DEBRIDEMENT. STATUS: CONTINUED DATE: 05/19/2024 04. OPTIMIZE GLUCOSE CONTROL AND NUTRITION : - COMPLETE A NUTRITION RISK ASSESSMENT. STATUS: COMPLETED DATE: 05/19/2024 05. OFFLOADING PLAN : - EVALUATE PLAN FOR OFFLOADING STATUS: CONTINUED DATE: 05/19/2024 06. OPTIMIZE HOST FACTORS: - ASSESS AND REVIEW PATIENT HISTORY FOR WOUND ETIOLOGY, CO-MORBID CONDITIONS, MEDICATION REGIME, AND SMOKING HISTORY. STATUS: CONTINUED DATE: 05/19/2024 07. DRESSING SELECTION : - EVALUATE FOR DRESSING-RELATED FACTORS, SUCH AVAILABILITY, WEAR TIME, ADAPTABILITY AND USE TO BETTER OPTIMIZE WOUND HEALING AND PATIENT COMPLIANCE. STATUS: CONTINUED DATE: 05/19/2024 - CHOOSE TOPICAL TREATMENTS AND/OR DRESSING BASED ON WOUND TYPE AND APPEARANCE, PERIWOUND SKIN CONDITION, WOUND SIZE AND DEPTH, ANATOMIC LOCATION, VOLUME OF EXUDATE, EDEMA IN THE LOWER EXTREMITIES, AND RISK OR PRESENCE OF INFECTION. STATUS: CONTINUED DATE: 05/19/2024 08. ADVANCED MODALITIES : - RE-EVALUATE PLAN OF CARE IF NO EVIDENCE OF HEALING (40% IN 4 WEEKS). STATUS: CONTINUED DATE: 05/19/2024 09. FALL PREVENTION : - COMPLETE FALL ASSESSMENT. STATUS: COMPLETED DATE: 05/19/2024 10. PAIN MANAGEMENT : - COMPLETE PAIN ASSESSMENT STATUS: COMPLETED DATE: 05/19/2024 11. MEASURABLE GOALS FOR WOUND HEALING AND/OR HYPERBARIC OXYGEN THERAPY : - LESS DRAINAGE STATUS: CONTINUED DATE: 05/19/2024 - DECREASE INFLAMMATION STATUS: CONTINUED DATE: 05/19/2024 - DECREASE WOUND DIMENSIONS STATUS: CONTINUED DATE: 05/19/2024 - REDUCE EDEMA STATUS: CONTINUED DATE: 05/19/2024 12. DURATION/FREQUENCY OF WOUND CARE VISITS : - 1X WEEKLY FOR 30 DAYS STATUS: CONTINUED DATE: 05/19/2024 TAISHA BRADFORD [id number] 1960 ELECTRONIC SIGNATURE(S) SIGNED BY: DATE: DIDI SOMMER MD 06/16/2024 15:47:56 (PT) ENTERED BY: DIDI SOMMER MD ON 06/16/2024 15:37:44 (PT) TAISHA BRADFORD [id number] 1960
== END ==
PROVIDERS: PCP Internal Medicine; Referring Provider Surgery; Visit Provider Surgery
DX: E11.621 Type 2 diabetes mellitus with foot ulcer (principal); E11.622 Type 2 diabetes mellitus with other skin ulcer; I87.2 Venous insufficiency (chronic) (peripheral); L97.522 Non-pressure chronic ulcer of other part of left foot with fat layer exposed; L97.822 Non-pressure chronic ulcer of other part of left lower leg with fat layer exposed; R23.4 Changes in skin texture; L98.8 Other specified disorders of the skin and subcutaneous tissue
CPT/HCPCS: 11042; 99213

== ENCOUNTER → 2024-06-20 11:04 | Outpatient (CLI) | payer OTHER, SELFPAY ==
[2024-02-16 21:37] VITALS: BMI 37.7
== END ==
PROVIDERS: PCP Internal Medicine; Referring Provider Surgery; Visit Provider Surgery
DX: E11.621 Type 2 diabetes mellitus with foot ulcer (principal); L97.522 Non-pressure chronic ulcer of other part of left foot with fat layer exposed; R60.0 Localized edema; R23.4 Changes in skin texture; L98.8 Other specified disorders of the skin and subcutaneous tissue; L97.822 Non-pressure chronic ulcer of other part of left lower leg with fat layer exposed
CPT/HCPCS: 99212

== ENCOUNTER → 2024-06-23 09:25 | Outpatient (CLI) | payer SELFPAY ==
[2024-02-16 21:37] VITALS: BMI 37.7
== END ==
LOC: WC 09:25
PROVIDERS: PCP Internal Medicine; Referring Provider Surgery; Visit Provider Surgery
DX: L97.522 Non-pressure chronic ulcer of other part of left foot with fat layer exposed (principal); I73.9 Peripheral vascular disease, unspecified; I87.2 Venous insufficiency (chronic) (peripheral); E11.622 Type 2 diabetes mellitus with other skin ulcer; R60.0 Localized edema
CPT/HCPCS: 11042

== ENCOUNTER → 2024-06-28 14:25 | Outpatient (CLI) | payer OTHER, SELFPAY ==
[2024-02-16 21:37] VITALS: BMI 37.7
== END ==
PROVIDERS: PCP Internal Medicine; Referring Provider Internal Medicine; Visit Provider Surgery
DX: E11.621 Type 2 diabetes mellitus with foot ulcer (principal); I87.2 Venous insufficiency (chronic) (peripheral); L97.522 Non-pressure chronic ulcer of other part of left foot with fat layer exposed; L97.822 Non-pressure chronic ulcer of other part of left lower leg with fat layer exposed; I73.9 Peripheral vascular disease, unspecified; E11.622 Type 2 diabetes mellitus with other skin ulcer; L98.8 Other specified disorders of the skin and subcutaneous tissue; R60.0 Localized edema
CPT/HCPCS: 11042; 97597

== ENCOUNTER → 2024-07-01 10:36 | Outpatient (CLI) | payer OTHER, SELFPAY ==
[2024-02-16 21:37] VITALS: BMI 37.7
== END ==
PROVIDERS: PCP Internal Medicine; Referring Provider Surgery; Visit Provider Physician Assistant
DX: E11.621 Type 2 diabetes mellitus with foot ulcer (principal); L97.522 Non-pressure chronic ulcer of other part of left foot with fat layer exposed; L97.822 Non-pressure chronic ulcer of other part of left lower leg with fat layer exposed
CPT/HCPCS: 99212

== ENCOUNTER → 2024-07-05 09:01 | Outpatient (CLI) | payer OTHER, SELFPAY ==
[2024-02-16 21:37] VITALS: BMI 37.7
== END ==
PROVIDERS: PCP Internal Medicine; Referring Provider Surgery; Visit Provider Surgery
DX: E11.621 Type 2 diabetes mellitus with foot ulcer (principal); E11.622 Type 2 diabetes mellitus with other skin ulcer; L97.522 Non-pressure chronic ulcer of other part of left foot with fat layer exposed; L97.822 Non-pressure chronic ulcer of other part of left lower leg with fat layer exposed; I87.2 Venous insufficiency (chronic) (peripheral); R60.0 Localized edema; L98.8 Other specified disorders of the skin and subcutaneous tissue
CPT/HCPCS: 11042

== ENCOUNTER → 2024-07-08 09:00 | Outpatient (CLI) | payer OTHER, SELFPAY ==
[2024-02-16 21:37] VITALS: BMI 37.7
== END ==
PROVIDERS: PCP Internal Medicine; Referring Provider Internal Medicine; Visit Provider Surgery
DX: E11.621 Type 2 diabetes mellitus with foot ulcer (principal); I87.2 Venous insufficiency (chronic) (peripheral); L97.522 Non-pressure chronic ulcer of other part of left foot with fat layer exposed; L97.822 Non-pressure chronic ulcer of other part of left lower leg with fat layer exposed; L98.8 Other specified disorders of the skin and subcutaneous tissue; R60.0 Localized edema
CPT/HCPCS: 99214

== ENCOUNTER → 2024-07-12 14:37 | Outpatient (CLI) | payer SELFPAY ==
[2024-02-16 21:37] VITALS: BMI 37.7
== END ==
LOC: WC 14:41
PROVIDERS: PCP Internal Medicine; Referring Provider Internal Medicine; Visit Provider Surgery
DX: E11.622 Type 2 diabetes mellitus with other skin ulcer (principal); L97.822 Non-pressure chronic ulcer of other part of left lower leg with fat layer exposed; I73.9 Peripheral vascular disease, unspecified; L98.8 Other specified disorders of the skin and subcutaneous tissue; R60.0 Localized edema
CPT/HCPCS: 97597; 99213

== ENCOUNTER → 2024-07-15 10:55 | Outpatient (CLI) | payer SELFPAY ==
[2024-02-16 21:37] VITALS: BMI 37.7
== END ==
LOC: WC 10:56
PROVIDERS: PCP Internal Medicine; Referring Provider Internal Medicine; Visit Provider Physician Assistant
DX: L97.522 Non-pressure chronic ulcer of other part of left foot with fat layer exposed (principal); I87.2 Venous insufficiency (chronic) (peripheral); R60.0 Localized edema
CPT/HCPCS: 99213

== ENCOUNTER → 2024-07-19 11:19 | Outpatient (CLI) | payer SELFPAY ==
[2024-02-16 21:37] VITALS: BMI 37.7
== END ==
LOC: WC 11:22
PROVIDERS: PCP Internal Medicine; Referring Provider Internal Medicine; Visit Provider Physician Assistant
DX: E11.621 Type 2 diabetes mellitus with foot ulcer (principal); E11.622 Type 2 diabetes mellitus with other skin ulcer; L97.522 Non-pressure chronic ulcer of other part of left foot with fat layer exposed; L97.822 Non-pressure chronic ulcer of other part of left lower leg with fat layer exposed; L98.8 Other specified disorders of the skin and subcutaneous tissue; R60.0 Localized edema
CPT/HCPCS: 99213

== ENCOUNTER → 2024-07-22 09:54 | Outpatient (CLI) | payer SELFPAY ==
[2024-02-16 21:37] VITALS: BMI 37.7
== END ==
LOC: WC 09:54
PROVIDERS: PCP Internal Medicine; Referring Provider Internal Medicine; Visit Provider Physician Assistant
DX: E11.621 Type 2 diabetes mellitus with foot ulcer (principal); I87.2 Venous insufficiency (chronic) (peripheral); L97.522 Non-pressure chronic ulcer of other part of left foot with fat layer exposed; L98.8 Other specified disorders of the skin and subcutaneous tissue; R60.0 Localized edema
CPT/HCPCS: 99213

== ENCOUNTER → 2024-07-28 10:03 | Outpatient (CLI) | payer SELFPAY ==
[2024-02-16 21:37] VITALS: BMI 37.7
== END ==
LOC: WC 10:05
PROVIDERS: PCP Internal Medicine; Referring Provider Internal Medicine; Visit Provider Surgery
DX: E11.622 Type 2 diabetes mellitus with other skin ulcer (principal); E11.621 Type 2 diabetes mellitus with foot ulcer; I87.2 Venous insufficiency (chronic) (peripheral); L97.822 Non-pressure chronic ulcer of other part of left lower leg with fat layer exposed; L97.522 Non-pressure chronic ulcer of other part of left foot with fat layer exposed; I73.9 Peripheral vascular disease, unspecified; R60.0 Localized edema; L98.8 Other specified disorders of the skin and subcutaneous tissue
CPT/HCPCS: 11042

== ENCOUNTER → 2024-08-01 10:55 | Outpatient (CLI) | payer SELFPAY ==
[2024-02-16 21:37] VITALS: BMI 37.7
== END ==
LOC: WC 10:55
PROVIDERS: PCP Internal Medicine; Referring Provider Internal Medicine; Visit Provider Surgery
DX: I87.2 Venous insufficiency (chronic) (peripheral) (principal); L97.822 Non-pressure chronic ulcer of other part of left lower leg with fat layer exposed; L98.8 Other specified disorders of the skin and subcutaneous tissue; R60.0 Localized edema
CPT/HCPCS: 29581

== ENCOUNTER → 2024-08-03 10:22 | Outpatient (CLI) | payer SELFPAY ==
[2024-02-16 21:37] VITALS: BMI 37.7
== END ==
LOC: WC 10:23
PROVIDERS: PCP Internal Medicine; Referring Provider Internal Medicine; Visit Provider Surgery
DX: I87.2 Venous insufficiency (chronic) (peripheral) (principal); L97.822 Non-pressure chronic ulcer of other part of left lower leg with fat layer exposed; E11.622 Type 2 diabetes mellitus with other skin ulcer; I73.9 Peripheral vascular disease, unspecified; L98.8 Other specified disorders of the skin and subcutaneous tissue; R60.0 Localized edema
CPT/HCPCS: 97602; 99213

== ENCOUNTER → 2024-08-08 09:36 | Outpatient (CLI) | payer SELFPAY ==
[2024-02-16 21:37] VITALS: BMI 37.7
== END ==
LOC: WC 09:37
PROVIDERS: PCP Internal Medicine; Referring Provider Internal Medicine; Visit Provider Surgery
DX: I87.2 Venous insufficiency (chronic) (peripheral) (principal); E11.622 Type 2 diabetes mellitus with other skin ulcer; L97.822 Non-pressure chronic ulcer of other part of left lower leg with fat layer exposed; I73.9 Peripheral vascular disease, unspecified; L98.8 Other specified disorders of the skin and subcutaneous tissue; R60.0 Localized edema; I10 Essential (primary) hypertension
CPT/HCPCS: 11042; 99213

== ENCOUNTER → 2024-08-15 09:11 | Outpatient (CLI) | payer SELFPAY ==
[2024-02-16 21:37] VITALS: BMI 37.7
== END ==
LOC: WC 09:12
PROVIDERS: PCP Internal Medicine; Referring Provider Internal Medicine; Visit Provider Surgery
DX: Z87.2 Personal history of diseases of the skin and subcutaneous tissue (principal); R60.0 Localized edema; I73.9 Peripheral vascular disease, unspecified; E11.622 Type 2 diabetes mellitus with other skin ulcer
CPT/HCPCS: 29581; 99213

== ENCOUNTER → 2024-08-22 10:46 | Outpatient (CLI) | payer SELFPAY ==
[2024-02-16 21:37] VITALS: BMI 37.7
== END ==
LOC: WC 10:47
PROVIDERS: PCP Internal Medicine; Referring Provider Internal Medicine; Visit Provider Surgery
DX: Z87.2 Personal history of diseases of the skin and subcutaneous tissue (principal); I73.9 Peripheral vascular disease, unspecified; I50.20 Unspecified systolic (congestive) heart failure; J44.9 Chronic obstructive pulmonary disease, unspecified
CPT/HCPCS: 99211; 99213